=== PATIENT | female | born 1965 | race Caucasian/White ===

== ENCOUNTER 2016-10-23 06:25 | Day surgery (SDC) | payer OTHER ==
[2016-10-23] MEDS ORDERED: Lactated Ringers 1,000 ML IV SCH (06:30)
[2016-10-23 09:07] VITALS: BP 151/68; PULSE 98; O2SAT 100
--- NOTE | 2016-10-23 12:23 | OP ---
SURGERY DATE: 10/23/16 SURGERY TIME: 0750 PREOPERATIVE DIAGNOSIS: 1. ALTERNATING CONSTIPATION AND DIARRHEA. POSTOPERATIVE DIAGNOSIS: 1. GASTRITIS. 2. NORMAL COLON. PROCEDURE: 1. Esophagogastroduodenoscopy with biopsy. 2. Colonoscopy. SURGEON: Dr. Randall. ANESTHESIA: MAC, medications given by the Anesthesia Department. BRIEF HISTORY: The patient is a 51 y/o WF who presents now for complaints of alternating constipation and diarrhea. It has been going on for some time. She reports that she is also having some abdominal pain. The patient is felt to need to have endoscopic evaluation. She was appraised of the risks of the procedure including the risk of perforation, phlebitis, untoward reaction to medication, bleeding, and missed lesions. The patient verbalized her understanding and desired to have the procedure performed. DESCRIPTION OF PROCEDURE: The patient was given the medications by the Anesthesia Department. She had continuous pulse oximetry, ECG monitoring, intermittent BP monitoring, and end tidal CO2 monitoring during the examination. She was placed in the left lateral decubitus position. A bite block was placed and the flexible Olympus gastroscope was used to intubate the oropharynx. A view of the larynx was obtained and was normal. The scope was easily introduced in the esophagus which was normal throughout its length. The stomach was entered where normal gastric rugal folds were seen. The gastric [place] was suctioned dry. The stomach was reinsufflated and we saw areas of erythema without ulcerations or erosions. The pylorus was encountered and intubated and the duodenum was inspected and found to be normal. The scope was withdrawn towards the stomach. A retroflex view was obtained of the lesser curvature, fundus, and cardia regions of the stomach and these appeared to be normal. The scope was then redirected towards the gastric antrum. Biopsies were obtained to rule out the presence of Helicobacter pylori type organisms and to confirm the presence of gastritis. The scope was removed from the patient. Next, a digital rectal examination was performed and revealed normal anal sphincter tone and no masses. The flexible Olympus pediatric colonoscope was used to intubate the rectum. A view of the colon was developed sequentially to the cecum. Upon insertion and withdrawal, including a retroflex view in the rectum, no mucosal lesions were encountered. However, there were large amounts of stool present still in the colon that were liquid. We were able to reach the cecum. The scope was removed from the patient who tolerated the procedure well and was sent back to OP recovery in good condition. The prep again was noted to be fair to poor.
== END 2016-10-23 09:40 | disposition left against medical advice (07) ==
LOC: SDC 06:25
PROVIDERS: ATTEND Family Medicine
PROC: 0DB68ZX Excision of Stomach, Via Natural or Artificial Opening Endoscopic, Diagnostic (ICD-10-PCS; principal; 2016-10-23)
PROC: 0DJD8ZZ Inspection of Lower Intestinal Tract, Via Natural or Artificial Opening Endoscopic (ICD-10-PCS; 2016-10-23)
DX: K29.70 Gastritis, unspecified, without bleeding (principal); K59.00 Constipation, unspecified; R19.7 Diarrhea, unspecified
CPT/HCPCS: 36415; 88305

== ENCOUNTER 2016-12-14 13:30 | Observation (INO) | payer OTHER ==
--- NOTE | 2016-12-14 13:48 | ERPHSYRPT ---
- History of Present Illness Time Seen by Provider: 12/14/16 13:42 Historian: patient Exam Limitations: no limitations Timing/Duration: today Activities at Onset: none Quality: aching Location: central Severity of Pain-Max: moderate Severity of Pain-Current: moderate Modifying Factors: Improves With: nothing Associated Symptoms: nausea, vomiting Prior Chest Pain/Cardiac Workup: no prior chest pain Nitro Today/Relief: no nitro taken today Aspirin Treatment Today: no aspirin today Allergies/Adverse Reactions: gabapentin [From Neurontin] Allergy (Intermediate, Verified 12/14/16 13:43) Rash Penicillins Adverse Reaction (Intermediate, Verified 12/14/16 13:43) Nausea and Vomiting Home Medications: Metoprolol Tartrate 25 mg [Lopressor 25MG Tab] 25 mg PO TID 02/11/16 [ History] Omeprazole [Prilosec] 40 mg PO DAILY 02/11/16 [History] Prazosin HCl 1 mg PO HS 02/11/16 [History] Quetiapine Fumarate [Seroquel] 300 mg PO HS 02/11/16 [History] Venlafaxine HCl [Effexor Xr] 150 mg PO HS 02/11/16 [History] Albuterol 8 gm Mdi Hfa [Ventolin Hfa MDI] 18 gm IH Q4H 09/16/16 [History] Tiotropium [place] Inhaler [Spiriva 18 Mcg/Cap Inhaler] 1 ea IH DAILY 09/01 [History] Ondansetron HCl 4 mg PO Q4H PRN PRN 10/20/16 [History] Ranitidine HCl 150 mg PO BID 10/20/16 [History] Diazepam 5 mg [Valium 5 MG] 5 mg PO HS 12/14/16 [History] Hx Tetanus, Diphtheria Vaccination/Date Given: Yes Hx Influenza Vaccination/Date Given: No Hx Pneumococcal Vaccination/Date Given: No - Review of Systems Constitutional: No Fever, No Chills Eyes: No Symptoms Ears, Nose, & Throat: No Symptoms Respiratory: No Cough, No Dyspnea Cardiac: Chest Pain Abdominal/Gastrointestinal: Nausea, Vomiting Genitourinary Symptoms: No Dysuria Musculoskeletal: No Back Pain, No Neck Pain Skin: No Rash Neurological: No Dizziness, No Focal Weakness, No Sensory Changes Psychological: No Symptoms Endocrine: No Symptoms Hematologic/Lymphatic: No Symptoms Immunological/Allergic: No Symptoms All Other Systems: Reviewed and Negative - Past Medical History Pertinent Past Medical History: Yes Neurological History: No Pertinent History ENT History: No Pertinent History Cardiac History: Hypertension Respiratory History: Asthma Endocrine Medical History: No Pertinent History Musculoskeletal History: No Pertinent History GI Medical History: No Pertinent History History: No Pertinent History Psycho-Social History: Anxiety, Depression Female Reproductive Disorders: No Pertinent History - Past Surgical History Past Surgical History: Yes Neuro Surgical History: No Pertinent History Cardiac: No Pertinent History Respiratory: No Pertinent History Gastrointestinal: No Pertinent History Genitourinary: No Pertinent History Musculoskeletal: Orthopedic Surgery Female Surgical History: Hysterectomy, Other Other Surgical History: exploratory lap prior to hysterectomy, cervical/neck disc surgery twice - Social History Smoking Status: Current every day smoker How long have you smoked: 15yrs Exposure to second hand smoke: No Drug Use: none Patient Lives Alone: No - Female History Hx Now: No - Physical Exam General Appearance: moderate distress Eye Exam: PERRL/EOMI, eyes nml inspection Ears, Nose, Throat Exam: normal ENT inspection, moist mucous membranes Neck Exam: normal inspection, non-tender, supple, full range of motion Respiratory Exam: normal breath sounds, lungs clear, No respiratory distress Cardiovascular Exam: regular rate/rhythm, normal heart sounds Gastrointestinal/Abdomen Exam: tenderness Pelvic Exam: not done Rectal Exam: not done Back Exam: normal inspection, No CVA tenderness, No vertebral tenderness Extremity Exam: normal inspection, normal range of motion Neurologic Exam: alert, oriented x 3, cooperative, normal mood/affect, sensation nml, No motor deficits Skin Exam: normal color, warm, dry SpO2 Interpretation: normal - Course EKG Interpreted by Me: Sinus Rhythm, NORMAL AXIS, NORMAL INTERVALS, NORMAL QRS, NORMAL ST-T Ordered Tests: Medication Summary Discontinued Medications Generic Name Dose Route Start Last Admin Trade Name Freq PRN Reason Stop Dose Admin Acetaminophen/Hydrocodone Bitart 1 tab 12/14/16 18:27 12/15/16 04:34 [place] 10/325 Mg Tablet PO 12/19/16 18:26 1 tab Q4H PRN PRN Administration PAIN Al Hydrox/Mg Hydrox/Simethicone Confirm 12/14/16 14:20 Maalox Es 30 Ml Unit Dose Administered 12/14/16 14:21 Dose 30 ml .ROUTE .STK-MED ONE Albuterol Sulfate 2 puff 12/15/16 07:00 Proventil Common Canister IH 01/14/17 06:59 Q4HRT BARBARA Belladonna Alkaloids/Phenobarbital 60 ml 12/14/16 13:54 12/14/16 14:07 Gi Cocktail 60ml (Belladonn/Phenobarb/Lidoc* PO 12/14/16 13:55 60 ml STAT ONE Administration Belladonna Alkaloids/Phenobarbital Confirm 12/14/16 14:21 Donnatol Liquid Administered 12/14/16 14:22 Dose 3.24 mg .ROUTE .STK-MED ONE Diazepam 5 mg 12/14/16 22:00 12/14/16 22:48 Valium 5 Mg PO 01/13/17 21:59 5 mg HS BARBARA Administration Enoxaparin Sodium 40 mg 12/15/16 10:00 Enoxaparin Sodium SQ 01/14/17 09:59 DAILY BARBARA Famotidine 20 mg 12/14/16 22:00 12/14/16 22:47 Pepcid 20 Mg Vial IV 01/13/17 21:59 20 mg Q12HT BARBARA Administration Famotidine 20 mg 12/14/16 22:00 12/15/16 08:36 Pepcid 20 Mg PO 01/13/17 21:59 20 mg BID BARBARA Administration Sodium Chloride 1,000 mls @ 999 mls/hr 12/14/16 13:54 12/14/16 14:07 Sodium Chloride 0.9% 1000 Ml IV 12/14/16 14:54 999 mls/hr .Q1H1M STA Administration Sodium Chloride Confirm 12/14/16 13:58 Sodium Chloride 0.9% 1000 Ml Administered 12/14/16 13:59 Dose 1,000 mls @ ud .ROUTE .STK-MED ONE Sodium Chloride 1,000 mls @ 100 mls/hr 12/14/16 17:34 12/15/16 04:30 Sodium Chloride 0.9% 1000 Ml IV 01/13/17 17:33 100 mls/hr .Q10H BARBARA Administration Pantoprazole Sodium 80 mg/ 500 mls @ 50 mls/hr 12/14/16 19:45 12/15/16 07:06 Sodium Chloride IV 01/13/17 19:44 50 mls/hr .Q10H BARBARA Administration Sodium Chloride Confirm 12/14/16 20:15 Sodium Chloride 0.9% 500 Ml Administered 12/14/16 20:16 Dose 500 mls @ ud IV .STK-MED ONE Sodium Chloride Confirm 12/14/16 18:29 Sodium Chloride 0.9% 1000 Ml Administered 12/14/16 18:30 Dose 1,000 mls @ ud .ROUTE .STK-MED ONE Labetalol HCl 10 mg 12/14/16 13:58 12/14/16 14:08 Trandate 20 Mg/5 Ml Syringe IV 12/14/16 13:59 10 mg STAT ONE Administration Labetalol HCl Confirm 12/14/16 13:58 Trandate 20 Mg/5 Ml Syringe Administered 12/14/16 13:59 Dose 20 mg IV .STK-MED ONE Labetalol HCl 10 mg 12/14/16 15:03 12/14/16 15:07 Trandate 20 Mg/5 Ml Syringe IV 12/14/16 15:04 10 mg STAT ONE Administration Lidocaine HCl Confirm 12/14/16 14:20 Xylocaine Hcl Viscous * Administered 12/14/16 14:21 Dose 1 ml .ROUTE .STK-MED ONE Metoprolol Tartrate 5 mg 12/14/16 16:59 12/14/16 17:08 Lopressor 5 Mg/5 Ml Injection IV 12/14/16 17:00 5 mg STAT ONE Administration Metoprolol Tartrate Confirm 12/14/16 17:07 Lopressor 5 Mg/5 Ml Injection Administered 12/14/16 17:08 Dose 5 mg IV .STK-MED ONE Metoprolol Tartrate 5 mg 12/14/16 17:47 12/14/16 17:57 Lopressor 5 Mg/5 Ml Injection IV 12/14/16 17:48 5 mg STAT ONE Administration Metoprolol Tartrate 25 mg 12/14/16 22:00 12/15/16 08:36 Lopressor 25mg Tab PO 01/13/17 21:59 25 mg TID BARBARA Administration Nitroglycerin 0.4 mg 12/15/16 08:07 12/15/16 08:17 Nitrostat 0.4 Mg Tablet SL 01/14/17 08:06 0.4 mg Q5MIN PRN MR X 3 PRN Administration CHEST PAIN Ondansetron HCl 8 mg 12/14/16 15:25 12/14/16 15:36 Zofran 4 Mg/2 Ml Vial IV 12/14/16 15:26 8 mg STAT ONE Administration Ondansetron HCl Confirm 12/14/16 15:29 Zofran 4 Mg/2 Ml Vial Administered 12/14/16 15:30 Dose 8 mg .ROUTE .STK-MED ONE Ondansetron HCl 4 mg 12/14/16 17:34 12/14/16 20:09 Zofran 4 Mg/2 Ml Vial IV 01/13/17 17:33 4 mg Q6H PRN PRN Administration NAUSEA/VOMITING Pantoprazole Sodium 40 mg 12/14/16 13:54 12/14/16 14:11 Protonix 40 Mg Iv IV 12/14/16 13:55 40 mg STAT ONE Administration Pantoprazole Sodium Confirm 12/14/16 14:11 Protonix 40 Mg Iv Administered 12/14/16 14:12 Dose 40 mg IV .STK-MED ONE Pantoprazole Sodium 40 mg 12/15/16 10:00 Protonix 40 Mg Iv IV 01/14/17 09:59 Q24H10 BARBARA Pantoprazole Sodium Confirm 12/14/16 20:15 Protonix 40 Mg Iv Administered 12/14/16 20:16 Dose 80 mg IV .STK-MED ONE Promethazine HCl 25 mg 12/14/16 13:54 12/14/16 14:09 Phenergan 25 Mg Inj IV 12/14/16 13:55 25 mg STAT ONE Administration Promethazine HCl Confirm 12/14/16 13:58 Phenergan 25 Mg Inj Administered 12/14/16 13:59 Dose 25 mg .ROUTE .STK-MED ONE Promethazine HCl 25 mg 12/14/16 16:12 12/14/16 16:18 Phenergan 25 Mg Inj IV 12/14/16 16:13 25 mg STAT ONE Administration Promethazine HCl Confirm 12/14/16 16:17 Phenergan 25 Mg Inj Administered 12/14/16 16:18 Dose 25 mg .ROUTE .STK-MED ONE Promethazine HCl 25 mg 12/14/16 17:34 Phenergan 25 Mg Inj IM 01/13/17 17:33 Q6H PRN PRN NAUSEA/VOMITING Quetiapine Fumarate 300 mg 12/14/16 22:00 12/14/16 22:48 Seroquel 100 Mg PO 01/13/17 21:59 300 mg HS BARBARA Administration Tiotropium [place] 1 ea 12/15/16 10:00 Spiriva 18 Mcg/Cap Inhaler IH 01/14/17 09:59 DAILY BARBARA Venlafaxine HCl 150 mg 12/15/16 10:00 Effexor Xr 75 Mg PO 01/14/17 09:59 DAILY BARBARA Venlafaxine HCl 150 mg 12/14/16 22:00 12/14/16 22:47 Effexor Xr 75 Mg PO 01/13/17 21:59 150 mg HS BARBARA Administration Lab/Rad Data: Laboratory Result Diagrams 12/14/16 13:45 12/14/16 13:45 Laboratory Results 12/14/16 12/14/16 12/14/16 Range/Units 16:00 13:45 13:45 WBC 13.2 H (4.0-10.5) K/mm3 RBC 4.66 (4.1-5.4) M/mm3 Hgb 14.6 (12.0-16.0) gm/dl Hct 43.3 (35-47) % MCV 92.9 (78-100) fl MCH 31.3 (26-32) pg MCHC 33.7 (32-36) g/dl RDW 12.5 (11.5-14.0) % Plt Count 452 H (150-450) K/mm3 MPV 10.2 H (6-9.5) fl Gran % 87.9 H (36.0-66.0) % Lymphocytes % 10.1 L (24.0-44.0) % Monocytes % 1.8 (0.0-12.0) % Eosinophils % 0.0 (0.00-5.0) % Basophils % 0.2 (0.0-0.4) % Basophils # 0.03 (0-0.4) Sodium 138 (136-145) mEq/L Potassium 3.8 (3.5-5.1) mEq/L Chloride 98 (98-107) mEq/L Carbon Dioxide 23.6 (21-32) mEq/L Anion Gap 20.0 H (5-15) MEQ/L BUN 14 (9-20) mg/dL Creatinine 1.48 H (0.55-1.30) mg/dl Estimated GFR 40 ML/MIN Glucose 175 H (70-110) MG/DL Calcium 10.5 H (8.5-10.1) mg/dL Total Bilirubin 0.3 (0.2-1.0) mg/dL AST 29 (15-37) U/L ALT 44 (12-78) U/L Alkaline Phosphatase 114 (46-116) U/L Troponin I < 0.017 (0.000-0.056) ng/ml Serum Total Protein 9.7 H (6.4-8.2) gm/dL Albumin 4.7 (3.4-5.0) g/dL Lipase 56 L (73-393) U/L Emesis for Blood NEGATIVE (Negative) - Progress Progress: unchanged Will see patient in: hospital (observation) - Departure Time of Disposition: 06:18 Departure Disposition: Observation Clinical Impression: HTN (hypertension), Vomiting Condition: Stable Critical Care Time: No
[2016-12-14] MEDS ORDERED: Phenergan 25 MG INJ IV ONE ×2 (13:54→16:12)
[2016-12-14] MEDS ORDERED: PROTONIX 40 MG IV IV ONE ×3 (13:54→20:15)
[2016-12-14] MEDS ORDERED: Sodium Chloride 0.9% 1000 ML 1,000 ML IV STA (13:54)
[2016-12-14] MEDS ORDERED: GI COCKTAIL 60ML (Belladonn/Phenobarb/Lidoc PO ONE (13:54)
--- NOTE | 2016-12-14 13:54 | ERPHSYRPT ---
- History of Present Illness Time Seen by Provider: 12/14/16 13:48 Source: patient Exam Limitations: no limitations Patient Subjective Stated Complaint: PT REPORTS SEVERE CHEST PAIN-N/V BEGINNING QUALITY CONTROL HEAD-HEADACHE FOR A FEW DAYS-NUMBNESS ET TINLGING IN LEFT HAND-STATES THAT SHE HAS NOT HAD HER HOME MEDS DUE TO INSURANCE ISSUES Triage Nursing Assessment: PT FLUSHED WARM ET [id number] QUESTIONS CORRECTLY-RESP NONLABORED-WHEEZES NOTED-PUPILS RESPONSIVE Physician History: The patient is a 51-year-old female who had severe epigastric pain and GI reflux last night about 3 AM. The pain has continued. Travels through to her back. She also has vomiting and diarrhea. She has been out of all of her medications for 4 days. These include ondansetron, omeprazole, metoprolol, and ranitidine. She states this pain feels more like severe heartburn. Her past medical history is significant for GERD, hypertension, COPD, and depression. She smokes. Timing/Duration: yesterday, hour(s) (11), constant, sudden Severity: severe Modifying Factors: Improves With: nothing Associated Symptoms: nausea, vomiting, abdominal pain, heartburn, chest pain Allergies/Adverse Reactions: gabapentin [From Neurontin] Allergy (Intermediate, Verified 12/14/16 13:43) Rash Penicillins Adverse Reaction (Intermediate, Verified 12/14/16 13:43) Nausea and Vomiting Home Medications: Metoprolol Tartrate 25 mg [Lopressor 25MG Tab] 25 mg PO TID 02/11/16 [ History] Omeprazole [Prilosec] 40 mg PO DAILY 02/11/16 [History] Prazosin HCl 1 mg PO DAILY 02/11/16 [History] Quetiapine Fumarate [Seroquel] 300 mg PO HS 02/11/16 [History] Venlafaxine HCl [Effexor Xr] 150 mg PO DAILY 02/11/16 [History] Albuterol 8 gm Mdi Hfa [Ventolin Hfa MDI] 18 gm IH Q4H 09/16/16 [History] Tiotropium [place] Inhaler [Spiriva 18 Mcg/Cap Inhaler] 1 ea IH DAILY 09/01 [History] Diclofenac Sodium Gel [Voltaren GEL] 1 each TOP QID 10/20/16 [History] Ondansetron HCl 4 mg PO Q4H PRN PRN 10/20/16 [History] Ranitidine HCl 150 mg PO BID 10/20/16 [History] Hx Tetanus, Diphtheria Vaccination/Date Given: Yes Hx Influenza Vaccination/Date Given: No Hx Pneumococcal Vaccination/Date Given: No Immunizations Up to Date: Yes - Review of Systems Constitutional: No Fever, No Chills Eyes: No Symptoms Ears, Nose, & Throat: No Symptoms Respiratory: No Cough, No Dyspnea Cardiac: Chest Pain Abdominal/Gastrointestinal: Abdominal Pain, Nausea, Vomiting, Diarrhea Genitourinary Symptoms: No Dysuria Musculoskeletal: No Back Pain, No Neck Pain Skin: No Rash Neurological: No Dizziness, No Focal Weakness, No Sensory Changes Psychological: No Symptoms Endocrine: No Symptoms Hematologic/Lymphatic: No Symptoms Immunological/Allergic: No Symptoms All Other Systems: Reviewed and Negative - Past Medical History Pertinent Past Medical History: Yes Neurological History: No Pertinent History ENT History: No Pertinent History Cardiac History: Hypertension Respiratory History: Asthma Endocrine Medical History: No Pertinent History Musculoskeletal History: No Pertinent History GI Medical History: No Pertinent History History: No Pertinent History Psycho-Social History: Anxiety, Depression Female Reproductive Disorders: No Pertinent History - Past Surgical History Past Surgical History: Yes Neuro Surgical History: No Pertinent History Cardiac: No Pertinent History Respiratory: No Pertinent History Gastrointestinal: No Pertinent History Genitourinary: No Pertinent History Musculoskeletal: Orthopedic Surgery Female Surgical History: Hysterectomy, Other Other Surgical History: exploratory lap prior to hysterectomy, cervical/neck disc surgery twice - Social History Smoking Status: Current every day smoker How long have you smoked: 15yrs Exposure to second hand smoke: No Drug Use: none Patient Lives Alone: No - Female History Hx Now: No - Nursing Vital Signs Nursing Vital Signs: Initial Vital Signs Temperature 98.0 F Temperature Source Oral Pulse Rate [] 76 Pulse Rate 91 Respiratory Rate 20 Blood Pressure [] 215/127 Pain Intensity 6 - Physical Exam General Appearance: moderate distress Eye Exam: PERRL/EOMI, eyes nml inspection Ears, Nose, Throat Exam: normal ENT inspection, TMs normal, pharynx normal, moist mucous membranes Neck Exam: normal inspection, non-tender, supple, full range of motion Respiratory Exam: normal breath sounds, lungs clear, No respiratory distress Cardiovascular Exam: regular rate/rhythm, normal heart sounds, normal peripheral pulses Gastrointestinal/Abdomen Exam: tenderness (epigastric) Pelvic Exam: not done Rectal Exam: not done Back Exam: normal inspection, normal range of motion, No CVA tenderness, No vertebral tenderness Extremity Exam: normal inspection, normal range of motion, pelvis stable Neurologic Exam: alert, oriented x 3, cooperative, normal mood/affect, nml cerebellar function, nml station & gait, sensation nml, No motor deficits Skin Exam: normal color, warm, dry, No rash Lymphatic Exam: No adenopathy SpO2 Interpretation: normal SpO2: 99 Oxygen Delivery: Room Air - Course EKG Interpreted by Me: RATE, Sinus Rhythm, NORMAL AXIS, NORMAL INTERVALS, NORMAL QRS, NORMAL ST-T - Radiology Exams Chest X-ray Interpretation: Teleradiologist Report, Negative (per Dr Jaimes) Abdomen X-ray Interpretation: Teleradiologist Report, Negative (per Dr Jaimes.) - CT Exams Head CT Interpretation: Negative, Tele-radiologist Report (stable normal head CT per Dr Jaimes.) Ordered Tests: Active Orders 24 hr Category Date Time Status EKG-ER Only STAT Care 12/14/16 13:54 Active IV Insertion STAT Care 12/14/16 13:54 Active CHEST 2 VIEWS (PA AND LAT) Stat Exams 12/14/16 13:54 Completed HEAD WITHOUT CONTRAST [CT] Stat Exams 12/14/16 16:10 Completed KUB Stat Exams 12/14/16 13:55 Completed CBC W DIFF Stat Lab 12/14/16 13:45 Completed CMP Stat Lab 12/14/16 13:45 Completed LIPASE Stat Lab 12/14/16 13:45 Completed OCCULT BLOOD, EMESIS Stat Lab 12/14/16 16:00 Completed TROPONIN Stat Lab 12/14/16 13:45 Completed UA Stat Lab 12/14/16 13:54 Ordered Medication Summary Discontinued Medications Generic Name Dose Route Start Last Admin Trade Name Freq PRN Reason Stop Dose Admin Al Hydrox/Mg Hydrox/Simethicone Confirm 12/14/16 14:20 Maalox Es 30 Ml Unit Dose Administered 12/14/16 14:21 Dose 30 ml .ROUTE .STK-MED ONE Belladonna Alkaloids/Phenobarbital 60 ml 12/14/16 13:54 12/14/16 14:07 Gi Cocktail 60ml (Belladonn/Phenobarb/Lidoc* PO 12/14/16 13:55 60 ml STAT ONE Administration Belladonna Alkaloids/Phenobarbital Confirm 12/14/16 14:21 Donnatol Liquid Administered 12/14/16 14:22 Dose 3.24 mg .ROUTE .STK-MED ONE Sodium Chloride 1,000 mls @ 999 mls/hr 12/14/16 13:54 12/14/16 14:07 Sodium Chloride 0.9% 1000 Ml IV 12/14/16 14:54 999 mls/hr .Q1H1M STA Administration Sodium Chloride Confirm 12/14/16 13:58 Sodium Chloride 0.9% 1000 Ml Administered 12/14/16 13:59 Dose 1,000 mls @ ud .ROUTE .STK-MED ONE Labetalol HCl 10 mg 12/14/16 13:58 12/14/16 14:08 Trandate 20 Mg/5 Ml Syringe IV 12/14/16 13:59 10 mg STAT ONE Administration Labetalol HCl Confirm 12/14/16 13:58 Trandate 20 Mg/5 Ml Syringe Administered 12/14/16 13:59 Dose 20 mg IV .STK-MED ONE Labetalol HCl 10 mg 12/14/16 15:03 12/14/16 15:07 Trandate 20 Mg/5 Ml Syringe IV 12/14/16 15:04 10 mg STAT ONE Administration Lidocaine HCl Confirm 12/14/16 14:20 Xylocaine Hcl Viscous * Administered 12/14/16 14:21 Dose 1 ml .ROUTE .STK-MED ONE Metoprolol Tartrate 5 mg 12/14/16 16:59 Lopressor 5 Mg/5 Ml Injection IV 12/14/16 17:00 STAT ONE Ondansetron HCl 8 mg 12/14/16 15:25 12/14/16 15:36 Zofran 4 Mg/2 Ml Vial IV 12/14/16 15:26 8 mg STAT ONE Administration Ondansetron HCl Confirm 12/14/16 15:29 Zofran 4 Mg/2 Ml Vial Administered 12/14/16 15:30 Dose 8 mg .ROUTE .STK-MED ONE Pantoprazole Sodium 40 mg 12/14/16 13:54 12/14/16 14:11 Protonix 40 Mg Iv IV 12/14/16 13:55 40 mg STAT ONE Administration Pantoprazole Sodium Confirm 12/14/16 14:11 Protonix 40 Mg Iv Administered 12/14/16 14:12 Dose 40 mg IV .STK-MED ONE Promethazine HCl 25 mg 12/14/16 13:54 12/14/16 14:09 Phenergan 25 Mg Inj IV 12/14/16 13:55 25 mg STAT ONE Administration Promethazine HCl Confirm 12/14/16 13:58 Phenergan 25 Mg Inj Administered 12/14/16 13:59 Dose 25 mg .ROUTE .STK-MED ONE Promethazine HCl 25 mg 12/14/16 16:12 12/14/16 16:18 Phenergan 25 Mg Inj IV 12/14/16 16:13 25 mg STAT ONE Administration Promethazine HCl Confirm 12/14/16 16:17 Phenergan 25 Mg Inj Administered 12/14/16 16:18 Dose 25 mg .ROUTE .STK-MED ONE Lab/Rad Data: Laboratory Result Diagrams 12/14/16 13:45 12/14/16 13:45 Laboratory Results 12/14/16 12/14/16 12/14/16 Range/Units 16:00 13:45 13:45 WBC 13.2 H (4.0-10.5) K/mm3 RBC 4.66 (4.1-5.4) M/mm3 Hgb 14.6 (12.0-16.0) gm/dl Hct 43.3 (35-47) % MCV 92.9 (78-100) fl MCH 31.3 (26-32) pg MCHC 33.7 (32-36) g/dl RDW 12.5 (11.5-14.0) % Plt Count 452 H (150-450) K/mm3 MPV 10.2 H (6-9.5) fl Gran % 87.9 H (36.0-66.0) % Lymphocytes % 10.1 L (24.0-44.0) % Monocytes % 1.8 (0.0-12.0) % Eosinophils % 0.0 (0.00-5.0) % Basophils % 0.2 (0.0-0.4) % Basophils # 0.03 (0-0.4) Sodium 138 (136-145) mEq/L Potassium 3.8 (3.5-5.1) mEq/L Chloride 98 (98-107) mEq/L Carbon Dioxide 23.6 (21-32) mEq/L Anion Gap 20.0 H (5-15) MEQ/L BUN 14 (9-20) mg/dL Creatinine 1.48 H (0.55-1.30) mg/dl Estimated GFR 40 ML/MIN Glucose 175 H (70-110) MG/DL Calcium 10.5 H (8.5-10.1) mg/dL Total Bilirubin 0.3 (0.2-1.0) mg/dL AST 29 (15-37) U/L ALT 44 (12-78) U/L Alkaline Phosphatase 114 (46-116) U/L Troponin I < 0.017 (0.000-0.056) ng/ml Serum Total Protein 9.7 H (6.4-8.2) gm/dL Albumin 4.7 (3.4-5.0) g/dL Lipase 56 L (73-393) U/L Emesis for Blood NEGATIVE (Negative) - Progress Progress: improved Discussed with : Prakash Will see patient in: hospital (observation) Counseled pt/family regarding: lab results, diagnosis, rad results - Departure Time of Disposition: 17:09 Departure Disposition: Observation (tele per Dr Randall) Clinical Impression: HTN (hypertension), Vomiting Condition: Stable Critical Care Time: No
[2016-12-14] MEDS ORDERED: Sodium Chloride 0.9% 1000 ML 1,000 ML ONE ×2 (13:58→18:29)
[2016-12-14] MEDS ORDERED: Phenergan 25 MG INJ ONE ×2 (13:58→16:17)
[2016-12-14] MEDS ORDERED: TRANDATE 20 MG/5 ML SYRINGE IV ONE ×3 (13:58→15:03)
[2016-12-14 14:04] LABS: BASOPHIL % 0.2 % (0.0-0.4); Granulocytes % 87.9 % (36.0-66.0); Lymphocytes % 10.1 % (24.0-44.0); Mean Cell Volume 92.9 fl (78-100); Mean Corpuscular Hemoglobin 31.3 pg (26-32); Mean Platelet Volume 10.2 fl (6-9.5); Monocytes % 1.8 % (0.0-12.0); Platelet Count 452 K/mm3 (150-450); Red Blood Count 4.66 M/mm3 (4.1-5.4); Red Cell Distribution Width 12.5 % (11.5-14.0); White Blood Count 13.2 K/mm3 (4.0-10.5)
[2016-12-14] MEDS ORDERED: MAALOX ES 30 ML UNIT DOSE ONE (14:20)
[2016-12-14] MEDS ORDERED: XYLOCAINE HCl Viscous ONE (14:20)
[2016-12-14] MEDS ORDERED: Donnatol Liquid ONE (14:21)
[2016-12-14 14:30] LABS: ALBUMIN 4.7 g/dL (3.4-5.0); ALKALINE PHOSPHATASE 114 U/L (46-116); BILIRUBIN,TOTAL 0.3 mg/dL (0.2-1.0); BLOOD UREA NITROGEN 14 mg/dL (9-20); CHLORIDE 98 mEq/L (98-107); Carbon Dioxide 23.6 mEq/L (21-32); Glucose 175 MG/DL (70-110); LIPASE 56 U/L (73-393); Potassium 3.8 mEq/L (3.5-5.1); SGOT/AST 29 U/L (15-37); SGPT/ALT 44 U/L (12-78); SODIUM 138 mEq/L (136-145); Total Protein 9.7 gm/dL (6.4-8.2)
[2016-12-14 14:31] LABS: TROPONIN < 0.017 ng/ml (0.000-0.056)
--- NOTE | 2016-12-14 14:42 | XRAY ---
Indication: Abdominal pain and vomiting. Comparison: None KUB nonacute and nonobstructed with minimal scattered vascular calcifications. Solid organs and osseous structures unremarkable. Impression: Negative KUB.
--- NOTE | 2016-12-14 14:44 | XRAY ---
Indication: Chest pain. Comparison: February 11, 2016. PA/lateral chest again demonstrates normal heart, lungs, and bony thorax.
[2016-12-14] MEDS ORDERED: Zofran 4 MG/2 ML VIAL IV ONE (15:25)
[2016-12-14] MEDS ORDERED: Zofran 4 MG/2 ML VIAL ONE (15:29)
--- NOTE | 2016-12-14 16:50 | XRAY ---
Indication: Headache. Multiple contiguous axial images obtained through the head without contrast. Comparison: June 16, 2015. Again normal appearing brain parenchyma, ventricles, and bony calvarium. Visualized paranasal sinuses and mastoid air cells are pneumatized and clear. Impression: Stable normal CT head without contrast exam. CTDI 67.22
[2016-12-14] MEDS ORDERED: LOPRESSOR 5 MG/5 ML INJECTION IV ONE ×3 (16:59→17:47)
[2016-12-14] MEDS ORDERED: Zofran 4 MG/2 ML VIAL IV PRN (17:34)
[2016-12-14] MEDS ORDERED: Phenergan 25 MG INJ IM PRN (17:34)
[2016-12-14] MEDS: Norco 10/325 MG Tablet PO PRN (20:09)
[2016-12-14] MEDS ORDERED: Sodium Chloride 0.9% 500 ML 500 ML IV ONE (20:15)
[2016-12-14] MEDS: PROTONIX 40 MG IV*** 80 MG in Sodium Chloride 0.9% 500 ML 500 ML IV SCH (20:30)
[2016-12-14] MEDS: Sodium Chloride 0.9% 1000 ML 1,000 ML IV SCH (20:36)
[2016-12-14] MEDS ORDERED: Seroquel 100 MG PO SCH (22:00)
[2016-12-14] MEDS ORDERED: Effexor XR 75 MG PO SCH (22:00)
[2016-12-14] MEDS ORDERED: Valium 5 MG PO SCH (22:00)
[2016-12-14] MEDS ORDERED: Pepcid 20 MG VIAL IV SCH (22:00)
[2016-12-14] MEDS: Lopressor 25MG Tab PO SCH (22:48)
[2016-12-14] MEDS: Pepcid 20 MG PO SCH (22:52)
[2016-12-15] MEDS: Sodium Chloride 0.9% 1000 ML 1,000 ML IV SCH (04:30)
[2016-12-15] MEDS: Norco 10/325 MG Tablet PO PRN (04:34)
[2016-12-15 06:16] LABS: ANION GAP 15.9 MEQ/L (5-15); Carbon Dioxide 25.8 mEq/L (21-32); Potassium 3.7 mEq/L (3.5-5.1)
[2016-12-15 06:18] LABS: BASOPHIL % 0.1 % (0.0-0.4); Eosinophil % 0.2 % (0.00-5.0); Granulocytes % 63.8 % (36.0-66.0); Lymphocytes % 27.5 % (24.0-44.0); Mean Cell Volume 93.5 fl (78-100); Mean Corpuscular Hemoglobin 30.7 pg (26-32); Mean Platelet Volume 10.2 fl (6-9.5); Monocytes % 8.4 % (0.0-12.0); Platelet Count 345 K/mm3 (150-450); Red Blood Count 4.33 M/mm3 (4.1-5.4); Red Cell Distribution Width 12.5 % (11.5-14.0); White Blood Count 13.4 K/mm3 (4.0-10.5)
[2016-12-15] MEDS ORDERED: Ventolin Hfa MDI IH SCH (06:45)
[2016-12-15] MEDS ORDERED: PROVENTIL COMMON CANISTER IH SCH (07:00)
[2016-12-15] MEDS: PROTONIX 40 MG IV*** 80 MG in Sodium Chloride 0.9% 500 ML 500 ML IV SCH (07:06)
[2016-12-15] MEDS ORDERED: MEDICATION INTERVENTION MC SCH (08:00)
[2016-12-15] MEDS ORDERED: Nitrostat 0.4 MG Tablet SL PRN (08:07)
--- NOTE | 2016-12-15 08:12 | HP ---
CHIEF COMPLAINT: Vomiting. HISTORY OF PRESENT ILLNESS: The patient is a 51 year-old white female who presented to the hospital emergency room after several episodes of vomiting. The patient reports that her friend said she turned pale and went out on her a couple of times prior to her arrival in the emergency room. In the emergency room the concern was for the patient's vomiting which is persistent despite Zofran and Phenergan. The emergency room doctor did not mention any chest pain issues. They did however give her a GI cocktail which the patient reported she was having a lot of heartburn which was unresolved with the GI cocktail. The patient reports remote history of having heart cath which was apparently normal done eight years ago. Although she reports a strong family history of heart problems. The patient also reports that she has been out of her home medications for the last month as she has been having trouble with her insurance and she has been taking no medications. HOME MEDICATIONS: Her home medications otherwise normally included metoprolol 25 mg t.i.d., omeprazole 40 mg a day, Prazosin 1 mg daily, Seroquel 300 mg at night, Effexor 150 mg daily, PRN Albuterol and Spiriva, Voltaren gel, Zofran 4 mg every four hours PRN and Zantac 150 mg b.i.d. ALLERGIES: NEURONTIN, PENICILLIN. PHYSICAL EXAMINATION: Revealed a well nourished, well developed 51 year-old white female currently in no distress and currently pain free. The patient's most recent vital signs show her temperature to be 98.1F, pulse 67, respiratory rate 18, blood pressure 145/70. HEENT: Normocephalic, atraumatic. Pupils equal round reactive to light. Extraocular movements intact. Oropharynx is pink and moist. NECK: Supple without lymphadenopathy, thyromegaly or JVD. CHEST: Clear to auscultation with good air movement bilaterally. HEART: Regular rate and rhythm without murmurs, rubs or gallops heard. ABDOMEN: Soft, nontender, nondistended without hepatosplenomegaly or masses. EXTREMITIES: Without clubbing, cyanosis or edema. NEUROLOGIC: Alert and oriented x3. No focal deficits were noted. LAB DATA AND TESTS: Showed normal EKG in normal sinus rhythm. Her initial troponins were less than 0.017. The patient's metabolic panel showed a nonfasting glucose 175, BUN 14, creatinine 1.48. Electrolytes were normal. Liver enzymes were normal. The patient's CBC showed a white blood cell count of 13,200, hemoglobin 14.6, PLT cou8nt 452,000. ASSESSMENT: Since the patient's hospital admission, she had complained of some chest pain. She was quite hypertensive. She received IV metoprolol. We did see an elevation of her troponins to 0.064 yesterday evening but by that time she was comfortable and sleeping. The patient's troponin semaj to 0.254 this morning and she is currently pain free but with the evidence of the chest discomfort and elevated troponins the patient was felt to need to be transferred to another facility for cardiology evaluation.
[2016-12-15 08:18] VITALS: PULSE 62
[2016-12-15 08:35] VITALS: BP 145/88; O2SAT 97
[2016-12-15] MEDS: Lopressor 25MG Tab PO SCH (08:36)
[2016-12-15] MEDS: Pepcid 20 MG PO SCH (08:36)
[2016-12-15] MEDS ORDERED: Effexor XR 75 MG PO SCH (10:00)
[2016-12-15] MEDS ORDERED: ENOXAPARIN SODIUM SQ SCH (10:00)
[2016-12-15] MEDS ORDERED: PROTONIX 40 MG IV IV SCH (10:00)
[2016-12-15] MEDS ORDERED: Spiriva 18 Mcg/Cap Inhaler IH SCH (10:00)
[2016-12-15] MEDS ORDERED: PRAZOSIN HCL 1 MG PO SCH (22:00)
== END 2016-12-15 09:00 | disposition home or self-care (01) ==
LOC: ED 13:30 → MED SURG 17:25
PROVIDERS: ADMIT Family Medicine; ATTEND Family Medicine
DX: R07.9 Chest pain, unspecified (principal); I10 Essential (primary) hypertension; K21.9 Gastro-esophageal reflux disease without esophagitis; J44.9 Chronic obstructive pulmonary disease, unspecified; F32.9 Major depressive disorder, single episode, unspecified; Z79.899 Other long term (current) drug therapy; Z72.0 Tobacco use
CPT/HCPCS: 36000; 36415; 70450; 71020; 74000; 80048; 80053; 82271; 83690; 84484; 85025; 93005; 93268; 96360; 96361; 96374; 96375; 96376; 99285; G0378; J2405; J2550; A9270-GY

== ENCOUNTER 2017-01-10 05:59 | Emergency (ER) | payer SELFPAY ==
[2017-01-10] MEDS ORDERED: BABY ASPIRIN 81 MG CHEW PO ONE (06:16)
[2017-01-10] MEDS ORDERED: Sodium Chloride 0.9% 1000 ML 1,000 ML IV STA (06:16)
[2017-01-10] MEDS ORDERED: Nitrostat 0.4 MG (ED) SL ONE ×2 (06:18→06:22)
[2017-01-10] MEDS ORDERED: BABY ASPIRIN 81 MG CHEW ONE (06:22)
[2017-01-10] MEDS ORDERED: Sodium Chloride 0.9% 1000 ML 1,000 ML ONE (06:22)
[2017-01-10] MEDS ORDERED: Hydromorphone 1 mg/ml Ampule IV ONE ×3 (06:24→07:40)
[2017-01-10] MEDS ORDERED: Phenergan 25 MG INJ IV ONE (06:24)
--- NOTE | 2017-01-10 06:24 | ERPHSYRPT ---
- History of Present Illness Time Seen by Provider: 01/10/17 06:15 Historian: patient Exam Limitations: no limitations Physician History: ABOUT 2.25 HOURS AGO PT STARTED WITH ANTERIOR CHEST PAIN RADIATING TO THE BACK WITH VOMITING X5, SHORTNESS OF AIR AND DIAPHORESIS. PT ALSO C/O A COUGH FOR YEARS. EARLIER THIS MONTH PT WENT TO [facility] AND SAW DR George JOHNSON( [employer] COORDINATOR) WHO PLANS TO PLACE STENTS IN THE FUTURE. Aspirin Treatment Today: 81 mg x 4, provided by EMS Allergies/Adverse Reactions: gabapentin [From Neurontin] Allergy (Intermediate, Verified 01/10/17 06:42) Rash Penicillins Adverse Reaction (Intermediate, Verified 01/10/17 06:42) Nausea and Vomiting Home Medications: Metoprolol Tartrate 25 mg [Lopressor 25MG Tab] 25 mg PO TID 02/11/16 [ History] Omeprazole [Prilosec] 40 mg PO DAILY 02/11/16 [History] Prazosin HCl 1 mg PO HS 02/11/16 [History] Quetiapine Fumarate [Seroquel] 300 mg PO HS 02/11/16 [History] Venlafaxine HCl [Effexor Xr] 150 mg PO HS 02/11/16 [History] Albuterol 8 gm Mdi Hfa [Ventolin Hfa MDI] 18 gm IH Q4H 09/16/16 [History] Tiotropium [place] Inhaler [Spiriva 18 Mcg/Cap Inhaler] 1 ea IH DAILY 09/01 [History] Ondansetron HCl 4 mg PO Q4H PRN PRN 10/20/16 [History] Ranitidine HCl 150 mg PO BID 10/20/16 [History] Diazepam 5 mg [Valium 5 MG] 5 mg PO HS 12/14/16 [History] Hx Tetanus, Diphtheria Vaccination/Date Given: Yes Hx Influenza Vaccination/Date Given: No Hx Pneumococcal Vaccination/Date Given: No - Review of Systems Respiratory: Cough, Dyspnea Cardiac: Chest Pain Abdominal/Gastrointestinal: Vomiting Endocrine: Excessive Sweating All Other Systems: Reviewed and Negative - Past Medical History Pertinent Past Medical History: Yes Neurological History: No Pertinent History ENT History: No Pertinent History Cardiac History: Hypertension Respiratory History: Asthma Endocrine Medical History: No Pertinent History Musculoskeletal History: No Pertinent History GI Medical History: No Pertinent History History: No Pertinent History Psycho-Social History: Anxiety, Depression Female Reproductive Disorders: No Pertinent History - Past Surgical History Past Surgical History: Yes Neuro Surgical History: No Pertinent History Cardiac: No Pertinent History Respiratory: No Pertinent History Gastrointestinal: No Pertinent History Genitourinary: No Pertinent History Musculoskeletal: Orthopedic Surgery Female Surgical History: Hysterectomy, Other Other Surgical History: exploratory lap prior to hysterectomy, cervical/neck disc surgery twice - Social History Smoking Status: Current every day smoker How long have you smoked: 15yrs Exposure to second hand smoke: No Drug Use: none Patient Lives Alone: No - Female History Hx Now: No - Nursing Vital Signs Nursing Vital Signs: Initial Vital Signs Temperature 97 F Temperature Source Oral Pulse Rate [] 68 Pulse Rate 78 Respiratory Rate 20 Blood Pressure [] 192/94 Pain Intensity 10 - Physical Exam General Appearance: alert Eye Exam: PERRL/EOMI Ears, Nose, Throat Exam: TMs normal, pharynx normal, moist mucous membranes Neck Exam: normal inspection Respiratory Exam: lungs clear Cardiovascular Exam: normal heart sounds Gastrointestinal/Abdomen Exam: soft, normal bowel sounds Back Exam: normal range of motion Extremity Exam: normal inspection, No pedal edema Neurologic Exam: alert, cooperative Skin Exam: warm, dry - Course Nursing assessment & vital signs reviewed: Yes EKG Interpreted by Me: RATE ([id number]), Sinus Juan, NORMAL AXIS, NORMAL INTERVALS - Radiology Exams Chest X-ray Interpretation: Interpreted by me, No Pneumonia Ordered Tests: Active Orders 24 hr Category Date Time Status Manager Quality Systems STAT Care 01/10/17 06:16 Active EKG-ER Only STAT Care 01/10/17 06:16 Completed IV Insertion STAT Care 01/10/17 06:16 Active Oxygen-ED Only NASAL CANNULA 2 lpm Care 01/10/17 06:16 Active CHEST 1 VIEW (PORTABLE) Stat Exams 01/10/17 06:17 Taken AMYLASE Stat Lab 01/10/17 06:28 Completed CBC W DIFF Stat Lab 01/10/17 06:28 Completed CMP Stat Lab 01/10/17 06:28 Completed LIPASE Stat Lab 01/10/17 06:28 Completed MAGNESIUM Stat Lab 01/10/17 06:28 Completed Manual Differential NC Stat Lab 01/10/17 06:28 Completed NT PRO BNP Stat Lab 01/10/17 06:28 Completed PROTIME WITH INR Stat Lab 01/10/17 06:28 Completed PTT Stat Lab 01/10/17 06:28 Completed TROPONIN Stat Lab 01/10/17 07:30 Ordered UA W/ MICROSCOPIC Stat Lab 01/10/17 07:03 Completed Urine Triage Profile Stat Lab 01/10/17 07:03 Completed Medication Summary Discontinued Medications Generic Name Dose Route Start Last Admin Trade Name Osmanyq PRN Reason Stop Dose Admin Aspirin 324 mg 01/10/17 06:16 01/10/17 06:28 Baby Aspirin 81 Mg Chew PO 01/10/17 06:17 324 mg STAT ONE Administration Aspirin Confirm 01/10/17 06:22 Baby Aspirin 81 Mg Chew Administered 01/10/17 06:23 Dose 324 mg .ROUTE .STK-MED ONE Hydromorphone HCl 1 mg 01/10/17 06:24 01/10/17 06:37 Hydromorphone 1 Mg/Ml Ampule IV 01/10/17 06:25 1 mg STAT ONE Administration Hydromorphone HCl Confirm 01/10/17 06:30 Hydromorphone 1 Mg/Ml Ampule Administered 01/10/17 06:31 Dose 1 mg .ROUTE .STK-MED ONE Hydromorphone HCl 1 mg 01/10/17 07:31 Hydromorphone 1 Mg/Ml Ampule IV 01/10/17 07:32 STAT ONE Sodium Chloride 1,000 mls @ 999 mls/hr 01/10/17 06:16 01/10/17 06:27 Sodium Chloride 0.9% 1000 Ml IV 01/10/17 07:16 999 mls/hr .Q1H1M STA Administration Sodium Chloride Confirm 01/10/17 06:22 Sodium Chloride 0.9% 1000 Ml Administered 01/10/17 06:23 Dose 1,000 mls @ ud .ROUTE .STK-MED ONE Labetalol HCl 10 mg 01/10/17 06:54 01/10/17 07:09 Trandate 20 Mg/5 Ml Syringe IV 01/10/17 06:55 10 mg STAT ONE Administration Labetalol HCl Confirm 01/10/17 07:06 Trandate 100 Mg/20 Ml Mdv For Drip Administered 01/10/17 07:07 Dose 100 mg IV .STK-MED ONE Labetalol HCl 20 mg 01/10/17 07:31 Trandate 20 Mg/5 Ml Syringe IV 01/10/17 07:32 STAT ONE Nitroglycerin 0.4 mg 01/10/17 06:18 01/10/17 06:28 Nitrostat 0.4 Mg (Ed) SL 01/10/17 06:19 0.4 mg STAT ONE Administration Nitroglycerin Confirm 01/10/17 06:22 Nitrostat 0.4 Mg (Ed) Administered 01/10/17 06:23 Dose 0.4 mg SL .STK-MED ONE Ondansetron HCl 4 mg 01/10/17 07:31 Zofran 4 Mg/2 Ml Vial IV 01/10/17 07:32 STAT ONE Promethazine HCl 12.5 mg 01/10/17 06:24 01/10/17 06:36 Phenergan 25 Mg Inj IV 01/10/17 06:25 12.5 mg STAT ONE Administration Promethazine HCl Confirm 01/10/17 06:30 Phenergan 25 Mg Inj Administered 01/10/17 06:31 Dose 25 mg .ROUTE .STK-MED ONE Lab/Rad Data: Laboratory Result Diagrams 01/10/17 06:28 01/10/17 06:28 Laboratory Results 01/10/17 01/10/17 01/10/17 Range/Units 07:03 07:03 06:28 WBC (4.0-10.5) K/mm3 RBC (4.1-5.4) M/mm3 Hgb (12.0-16.0) gm/dl Hct (35-47) % MCV (78-100) fl MCH (26-32) pg MCHC (32-36) g/dl RDW (11.5-14.0) % Plt Count (150-450) K/mm3 MPV (6-9.5) fl Segmented Neutrophils (36.0-66.0) % Lymphocytes (Manual) (24-44) % Monocytes (Manual) (0.0-12.0) % Differential Comment Platelet Estimate (NORMAL) Poikilocytosis Anisocytosis Rouleaux INR 1.09 (0.8-3.0) APTT 37.4 H (25.3-37.0) SECONDS Sodium (136-145) mEq/L Potassium (3.5-5.1) mEq/L Chloride (98-107) mEq/L Carbon Dioxide (21-32) mEq/L Anion Gap (5-15) MEQ/L BUN (9-20) mg/dL Creatinine (0.55-1.30) mg/dl Estimated GFR ML/MIN Glucose (70-110) MG/DL Calcium (8.5-10.1) mg/dL Magnesium (1.8-2.4) mg/dL Total Bilirubin (0.2-1.0) mg/dL AST (15-37) U/L ALT (12-78) U/L Alkaline Phosphatase (46-116) U/L NT-Pro-B Natriuret Pep (0-125) pg/ml Serum Total Protein (6.4-8.2) gm/dL Albumin (3.4-5.0) g/dL Amylase (25-115) U/L Lipase (73-393) U/L Ur Collection Type CLEAN CATCH Urine Color YELLOW (YELLOW) Urine Appearance CLEAR (CLEAR) Urine pH 6.0 (5-6) Ur Specific [place] 1.020 (1.005-1.025) Urine Protein TRACE (Negative) Urine Glucose (UA) NEGATIVE (NEGATIVE) mg/dL Urine Ketones NEGATIVE (NEGATIVE) Urine Nitrite NEGATIVE (NEGATIVE) Urine Bilirubin NEGATIVE (NEGATIVE) Urine Urobilinogen 0.2 (0-1) mg/dL Urine WBC (Auto) NEGATIVE (NEGATIVE) Urine RBC (Auto) NEGATIVE (0-5) Buster/ul Urine Microscopic WBC 0-2 (0-5) /HPF Ur Epithelial Cells FEW (FEW) /HPF Urine Bacteria FEW (NEGATIVE) /HPF Urine Mucus SLIGHT (NEGATIVE) /HPF Urine Opiates Level POS. (NEGATIVE) Ur Methadone NEG. (NEGATIVE) Urine Barbiturates NEG. (NEGATIVE) Ur Phencyclidine (PCP) NEG. (NEGATIVE) Urine Amphetamine NEG. (NEGATIVE) U Benzodiazepine Level POS. (NEGATIVE) Urine Cocaine NEG. (NEGATIVE) Urine Marijuana (THC) POS. (NEGATIVE) Specimen Received [id number] 01/10/17 01/10/17 Range/Units 06:28 06:28 WBC 16.8 H (4.0-10.5) K/mm3 RBC 4.54 (4.1-5.4) M/mm3 Hgb 14.0 (12.0-16.0) gm/dl Hct 41.5 (35-47) % MCV 91.4 (78-100) fl MCH 30.8 (26-32) pg MCHC 33.7 (32-36) g/dl RDW 11.9 (11.5-14.0) % Plt Count 431 (150-450) K/mm3 MPV 9.9 H (6-9.5) fl Segmented Neutrophils 80 H (36.0-66.0) % Lymphocytes (Manual) 18 L (24-44) % Monocytes (Manual) 2 (0.0-12.0) % Differential Comment ABNORMAL Platelet Estimate NORMAL (NORMAL) Poikilocytosis 1+ Anisocytosis 1+ Rouleaux 1+ INR (0.8-3.0) APTT (25.3-37.0) SECONDS Sodium 139 (136-145) mEq/L Potassium 3.4 L (3.5-5.1) mEq/L Chloride 101 (98-107) mEq/L Carbon Dioxide 21.4 (21-32) mEq/L Anion Gap 19.9 H (5-15) MEQ/L BUN 18 (9-20) mg/dL Creatinine 1.57 H (0.55-1.30) mg/dl Estimated GFR 37 ML/MIN Glucose 268 H (70-110) MG/DL Calcium 9.8 (8.5-10.1) mg/dL Magnesium 1.5 L (1.8-2.4) mg/dL Total Bilirubin 0.30 (0.2-1.0) mg/dL AST 23 (15-37) U/L ALT 23 (12-78) U/L Alkaline Phosphatase 121 H (46-116) U/L NT-Pro-B Natriuret Pep 217 H (0-125) pg/ml Serum Total Protein 8.5 H (6.4-8.2) gm/dL Albumin 4.0 (3.4-5.0) g/dL Amylase 60 (25-115) U/L Lipase 71 L (73-393) U/L Ur Collection Type Urine Color (YELLOW) Urine Appearance (CLEAR) Urine pH (5-6) Ur Specific [place] (1.005-1.025) Urine Protein (Negative) Urine Glucose (UA) (NEGATIVE) mg/dL Urine Ketones (NEGATIVE) Urine Nitrite (NEGATIVE) Urine Bilirubin (NEGATIVE) Urine Urobilinogen (0-1) mg/dL Urine WBC (Auto) (NEGATIVE) Urine RBC (Auto) (0-5) Buster/ul Urine Microscopic WBC (0-5) /HPF Ur Epithelial Cells (FEW) /HPF Urine Bacteria (NEGATIVE) /HPF Urine Mucus (NEGATIVE) /HPF Urine Opiates Level (NEGATIVE) Ur Methadone (NEGATIVE) Urine Barbiturates (NEGATIVE) Ur Phencyclidine (PCP) (NEGATIVE) Urine Amphetamine (NEGATIVE) U Benzodiazepine Level (NEGATIVE) Urine Cocaine (NEGATIVE) Urine Marijuana (THC) (NEGATIVE) Specimen Received - Progress Discussed with Dr.: Other (SPOKE WITH DR SELLERS(HOSPITALIST AT [facility]) ([id number]) WHO ACCEPTED PT FOR TRANSFER TO [facility] A DIRECT ADMISSION.) - Departure Time of Disposition: 07:38 Departure Disposition: Transfer ([facility]) Clinical Impression: CHEST PAIN, VOMITING, HTN, HYPOMAGNESEMIA, HYPOKALEMIA, ANXIETY, DEPRESSION Condition: Fair Critical Care Time: No
[2017-01-10] MEDS ORDERED: Phenergan 25 MG INJ ONE (06:30)
[2017-01-10] MEDS ORDERED: Hydromorphone 1 mg/ml Ampule ONE ×2 (06:30→07:38)
[2017-01-10 06:31] LABS: Mean Cell Volume 91.4 fl (78-100); Mean Corpuscular Hemoglobin 30.8 pg (26-32); Mean Platelet Volume 9.9 fl (6-9.5); Platelet Count 431 K/mm3 (150-450); Red Blood Count 4.54 M/mm3 (4.1-5.4); Red Cell Distribution Width 11.9 % (11.5-14.0); White Blood Count 16.8 K/mm3 (4.0-10.5)
[2017-01-10 06:46] LABS: INR 1.09 (0.8-3.0); PROTIME 12.2 SECONDS (9.95-12.35)
[2017-01-10 06:49] LABS: PTT 37.4 SECONDS (25.3-37.0)
[2017-01-10] MEDS ORDERED: TRANDATE 20 MG/5 ML SYRINGE IV ONE ×2 (06:54→07:31)
[2017-01-10 07:04] LABS: COMPLETE URINE MICROSCOPIC? YES; Collection Type CLEAN CATCH
[2017-01-10] MEDS ORDERED: TRANDATE 100 MG/20 ML MDV FOR DRIP IV ONE ×2 (07:06→07:39)
[2017-01-10 07:17] LABS: ANION GAP 19.9 MEQ/L (5-15); BILIRUBIN,TOTAL 0.3 mg/dL (0.2-1.0); Carbon Dioxide 21.4 mEq/L (21-32); MAGNESIUM 1.5 mg/dL (1.8-2.4); Potassium 3.4 mEq/L (3.5-5.1); Total Protein 8.5 gm/dL (6.4-8.2)
[2017-01-10 07:27] LABS: ADD URINE CULTURE? NO (NO); Bacteria FEW /HPF (NEGATIVE); Epithelial Cells FEW /HPF (FEW); Mucus SLIGHT /HPF (NEGATIVE); WBC 0-2 /HPF (0-5)
[2017-01-10 07:31] LABS: Total Cells Counted 100
[2017-01-10] MEDS ORDERED: Zofran 4 MG/2 ML VIAL IV ONE (07:31)
[2017-01-10 07:32] LABS: ANISOCYTOSIS 1+; Platelet Estimate NORMAL (NORMAL); Poikilocytosis 1+
[2017-01-10] MEDS ORDERED: Zofran 4 MG/2 ML VIAL ONE (07:37)
[2017-01-10] MEDS ORDERED: Magnesium 1 Gm / 100 Ml D5W*** 100 ML IV ONE ×2 (07:39→08:01)
[2017-01-10] MEDS ORDERED: POTASSIUM CHLORIDE 20 mEq IN WATER 100ML 100 ML IV ONE ×2 (07:40→08:34)
[2017-01-10 07:56] VITALS: O2SAT 100
--- NOTE | 2017-01-10 08:03 | XRAY ---
Indication: Pain. Comparison: December 14, 2016. Portable chest again demonstrates normal heart, lungs, and bony thorax.
[2017-01-10 08:05] VITALS: PULSE 66
[2017-01-10 08:43] VITALS: BP 187/90
== END 2017-01-10 08:56 | disposition short-term general hospital (02) ==
LOC: ED 05:59
DX: R07.9 Chest pain, unspecified (principal); R11.10 Vomiting, unspecified; I10 Essential (primary) hypertension; E83.42 Hypomagnesemia; E87.6 Hypokalemia; F41.9 Anxiety disorder, unspecified; F32.9 Major depressive disorder, single episode, unspecified
CPT/HCPCS: 36000; 36415; 71010; 80053; 80307; 81000; 82150; 83690; 83735; 83880; 84484; 85025; 85610; 85730; 93005; 93041; 96360; 96361; 96365; 96366; 96374; 96375; 96376; 99285; J1170; J2405; J2550; J3475; J3480; A9270-GY

== ENCOUNTER 2019-03-23 16:24 | Observation (INO) | payer OTHER ==
[2019-03-23] MEDS ORDERED: Sodium Chloride 0.9% 1000 ML 1,000 ML IV SCH ×2 (16:30→18:44)
--- NOTE | 2019-03-23 16:38 | ERPHSYRPT ---
- History of Present Illness Time Seen by Provider: 03/23/19 16:28 Source: patient, EMS Exam Limitations: no limitations Physician History: 53-year-old white female brought by medics with complaint of a deliberate overdose of Seroquel. Patient states she was tired of hurting apparently has chronic neck pain so she decided to take an overdose of Seroquel. She denies trying to kill herself. She denies alcohol use drug use. Patient was given Narcan by medics Past medical history includes high blood pressure, asthma, anxiety, depression Past surgical history includes orthopedic surgery, hysterectomy, exploratory laparoscopy, cervical/neck disc surgery x2 Timing/Duration: today Severity: moderate Modifying Factors: Improves With: other (delivered overdose of Seroquel four 300 mg tablets) Associated Symptoms: No nausea, No vomiting, No abdominal pain, No shortness of breath, No heartburn, No diaphoresis, No cough, No chills, No chest pain, No fever, No headaches, No loss of appetite, No malaise, No rash, No syncope, No seizure, No weakness Allergies/Adverse Reactions: gabapentin [From Neurontin] Allergy (Intermediate, Verified 03/23/19 16:45) Rash Penicillins Adverse Reaction (Intermediate, Verified 03/23/19 16:45) Nausea and Vomiting Home Medications: Quetiapine Fumarate [Seroquel] 300 mg PO HS 02/11/16 [History] Albuterol 8 gm Mdi Hfa [Ventolin Hfa MDI] 18 gm IH Q4H 09/16/16 [History] Tiotropium Wolf Inhaler [Spiriva 18 Mcg/Cap Inhaler] 1 ea IH DAILY 09/01 [History] raNITIdine HCl [Ranitidine HCl] 150 mg PO DAILY 10/20/16 [History] Diazepam 5 mg [Valium 5 MG] 5 mg PO BID 12/14/16 [History] Amlodipine Besylate 10 mg PO DAILY 03/23/19 [History] Atorvastatin Calcium [Lipitor] 20 mg PO DAILY 03/23/19 [History] Hx Tetanus, Diphtheria Vaccination/Date Given: Yes Hx Influenza Vaccination/Date Given: No Hx Pneumococcal Vaccination/Date Given: No - Review of Systems Constitutional: No Fever, No Chills Eyes: No Symptoms Ears, Nose, & Throat: No Symptoms Respiratory: No Cough, No Dyspnea Cardiac: No Chest Pain, No Edema, No Syncope Abdominal/Gastrointestinal: No Abdominal Pain, No Nausea, No Vomiting, No Diarrhea Genitourinary Symptoms: No Dysuria Musculoskeletal: Neck Pain (cchronic neck pain), No Arthralgias, No Back Pain, No Deformity, No Fall, No Injury, No Joint Redness, No Joint Pain, No Joint Swelling, No Myalgias, No Other Skin: No Rash Neurological: No Dizziness, No Focal Weakness, No Sensory Changes Psychological: Other (delivered overdose of Seroquel) Endocrine: No Symptoms All Other Systems: Reviewed and Negative - Past Medical History Pertinent Past Medical History: Yes Neurological History: No Pertinent History ENT History: No Pertinent History Cardiac History: Hypertension Respiratory History: Asthma Endocrine Medical History: No Pertinent History Musculoskeletal History: No Pertinent History GI Medical History: No Pertinent History History: No Pertinent History Psycho-Social History: Anxiety, Depression Female Reproductive Disorders: No Pertinent History - Past Surgical History Past Surgical History: Yes Neuro Surgical History: No Pertinent History Cardiac: No Pertinent History Respiratory: No Pertinent History Gastrointestinal: No Pertinent History Genitourinary: No Pertinent History Musculoskeletal: Orthopedic Surgery Female Surgical History: Hysterectomy, Other Other Surgical History: exploratory lap prior to hysterectomy, cervical/neck disc surgery twice - Social History Smoking Status: Current every day smoker How long have you smoked: 15yrs Exposure to second hand smoke: No Drug Use: none Patient Lives Alone: No - Nursing Vital Signs Nursing Vital Signs: Initial Vital Signs Pulse Rate 128 H 03/23/19 16:30 Blood Pressure 116/77 03/23/19 16:30 O2 Sat by Pulse Oximetry 98 03/23/19 16:30 Pain Scale Pain Intensity 8 - Physical Exam General Appearance: no apparent distress, alert Eye Exam: PERRL/EOMI, eyes nml inspection Ears, Nose, Throat Exam: normal ENT inspection, TMs normal, pharynx normal, moist mucous membranes Neck Exam: normal inspection, non-tender, supple, full range of motion Respiratory Exam: normal breath sounds, lungs clear, No respiratory distress Cardiovascular Exam: regular rate/rhythm, normal heart sounds, normal peripheral pulses, capillary refill <2 sec Gastrointestinal/Abdomen Exam: soft, normal bowel sounds, No tenderness, No mass Back Exam: normal inspection, normal range of motion, No CVA tenderness, No vertebral tenderness Extremity Exam: normal inspection, normal range of motion, pelvis stable Neurologic Exam: alert, oriented x 3, cooperative, employment consultant II-XII nml as tested, normal mood/affect, nml cerebellar function, nml station & gait, sensation nml, No motor deficits Skin Exam: normal color, warm, dry, No rash Lymphatic Exam: No adenopathy SpO2 Interpretation: normal - Course Nursing assessment & vital signs reviewed: Yes EKG Interpreted by Me: RATE (127 bpm), Sinus Tach, NORMAL AXIS, Other (EKG: Sinus tachycardia, 127 bpm, nnormal axis,, no acute ST or T wave changes) - Radiology Exams Chest X-ray Interpretation: Interpreted by me (cxr: no acute disease process noted) Ordered Tests: Active Orders 24 hr Category Date Time Status EKG-ER Only STAT Care 03/23/19 16:27 Active IV Insertion STAT Care 03/23/19 16:27 Active Pulse Oximetry (ED) STAT Care 03/23/19 16:32 Active CHEST 1 VIEW (PORTABLE) Stat Exams 03/23/19 17:00 Taken ACETAMINOPHEN Stat Lab 03/23/19 16:35 Completed CBC W DIFF Stat Lab 03/23/19 16:35 Completed CMP Stat Lab 03/23/19 16:35 Completed ETHYL ALCOHOL Stat Lab 03/23/19 16:35 Completed SALICYLATE Stat Lab 03/23/19 16:35 Completed UA W/RFX UR CULTURE Stat Lab 03/23/19 17:20 Completed Urine Triage Profile Stat Lab 03/23/19 17:20 Completed Medication Summary Generic Name Dose Route Start Last Admin Trade Name Freq PRN Reason Stop Dose Admin Sodium Chloride 1,000 mls @ 100 mls/hr 03/23/19 16:30 03/23/19 17:09 Sodium Chloride 0.9% 1000 Ml IV 04/22/19 16:29 100 mls/hr .Q10H BARBARA Administration Potassium Chloride 100 mls @ 50 mls/hr 03/23/19 16:58 03/23/19 17:09 Potassium Chloride 20 Meq In Water 100ml IV 03/23/19 18:57 50 mls/hr STAT ONE Administration Discontinued Medications Generic Name Dose Route Start Last Admin Trade Name Freq PRN Reason Stop Dose Admin Potassium Chloride Confirm 03/23/19 17:03 Potassium Chloride 20 Meq In Water 100ml Administered 03/23/19 17:04 Dose 100 mls @ ud IV .STK-MED ONE Lorazepam 1 mg 03/23/19 16:57 03/23/19 17:04 Ativan 2 Mg/1 Ml Vial IV 03/23/19 16:58 1 mg STAT ONE Administration Lorazepam Confirm 03/23/19 16:57 Ativan 2 Mg/1 Ml Vial Administered 03/23/19 16:58 Dose 2 mg .ROUTE .STK-MED ONE Lab/Rad Data: Laboratory Result Diagrams 03/23/19 16:35 03/23/19 16:35 Laboratory Results 03/23/19 03/23/19 03/23/19 Range/Units 17:20 17:20 16:35 WBC (4.0-10.5) K/mm3 RBC (4.1-5.4) M/mm3 Hgb (12.0-16.0) gm/dl Hct (35-47) % MCV (78-100) fl MCH (26-32) pg MCHC (32-36) g/dl RDW (11.5-14.0) % Plt Count (150-450) K/mm3 MPV (6-9.5) fl Gran % (36.0-66.0) % Eos # (Auto) (0-0.5) Absolute Lymphs (auto) (1.0-4.6) Absolute Monos (auto) (0.0-1.3) Lymphocytes % (24.0-44.0) % Monocytes % (0.0-12.0) % Eosinophils % (0.00-5.0) % Basophils % (0.0-0.4) % Absolute Granulocytes (1.4-6.9) Basophils # (0-0.4) Sodium 140 (137-145) mmol/L Potassium 2.8 L* (3.5-5.1) mmol/L Chloride 111 H (98-107) mmol/L Carbon Dioxide 21 L (22-30) mmol/L Anion Gap 11.6 (5-15) MEQ/L BUN 12 (7-17) mg/dL Creatinine 1.02 (0.52-1.04) mg/dL Estimated GFR > 60.0 ML/MIN Glucose 220 H (74-106) mg/dL Calcium 8.7 (8.4-10.2) mg/dL Total Bilirubin 0.40 (0.2-1.3) mg/dL AST 35 (14-36) U/L ALT 39 H (0-35) U/L Alkaline Phosphatase 131 H (38-126) U/L Serum Total Protein 7.2 (6.3-8.2) g/dL Albumin 3.7 (3.5-5.0) g/dL Urine Color YELLOW (YELLOW) Urine Appearance SLIGHTLY CLOUDY (CLEAR) Urine pH 7.0 (5-6) Ur Specific Robards 1.006 (1.005-1.025) Urine Protein NEGATIVE (Negative) Urine Ketones NEGATIVE (NEGATIVE) Urine Blood NEGATIVE (0-5) Buster/ul Urine Nitrite NEGATIVE (NEGATIVE) Urine Bilirubin NEGATIVE (NEGATIVE) Urine Urobilinogen NEGATIVE (0-1) mg/dL Ur Leukocyte Esterase NEGATIVE (NEGATIVE) Urine WBC (Auto) 3-5 (0-5) /HPF Urine RBC (Auto) 0-2 (0-2) /HPF U Epithel Cells (Auto) RARE (FEW) /HPF Urine Bacteria (Auto) FEW (NEGATIVE) /HPF Urine Culture Reflexed NO (NO) Urine Glucose NEGATIVE (NEGATIVE) mg/dL Salicylates < 1.0 L (2-20) mg/dL Urine Opiates Level NEGATIVE (NEGATIVE) Ur Methadone NEGATIVE (NEGATIVE) Acetaminophen < 10 L (10-30) ug/ml Urine Barbiturates NEGATIVE (NEGATIVE) Ur Phencyclidine (PCP) NEGATIVE (NEGATIVE) Urine Amphetamine NEGATIVE (NEGATIVE) U Benzodiazepine Level POSITIVE (NEGATIVE) Urine Cocaine NEGATIVE (NEGATIVE) Urine Marijuana (THC) NEGATIVE (NEGATIVE) Ethyl Alcohol < 10 (0-10) mg/dL 03/23/19 Range/Units 16:35 WBC 10.5 (4.0-10.5) K/mm3 RBC 4.20 (4.1-5.4) M/mm3 Hgb 13.3 (12.0-16.0) gm/dl Hct 39.0 (35-47) % MCV 92.9 (78-100) fl MCH 31.7 (26-32) pg MCHC 34.1 (32-36) g/dl RDW 12.5 (11.5-14.0) % Plt Count 229 (150-450) K/mm3 MPV 10.3 H (6-9.5) fl Gran % 67.4 H (36.0-66.0) % Eos # (Auto) 0.14 (0-0.5) Absolute Lymphs (auto) 2.41 (1.0-4.6) Absolute Monos (auto) 0.82 (0.0-1.3) Lymphocytes % 23.1 L (24.0-44.0) % Monocytes % 7.8 (0.0-12.0) % Eosinophils % 1.3 (0.00-5.0) % Basophils % 0.4 (0.0-0.4) % Absolute Granulocytes 7.04 H (1.4-6.9) Basophils # 0.04 (0-0.4) Sodium (137-145) mmol/L Potassium (3.5-5.1) mmol/L Chloride (98-107) mmol/L Carbon Dioxide (22-30) mmol/L Anion Gap (5-15) MEQ/L BUN (7-17) mg/dL Creatinine (0.52-1.04) mg/dL Estimated GFR ML/MIN Glucose (74-106) mg/dL Calcium (8.4-10.2) mg/dL Total Bilirubin (0.2-1.3) mg/dL AST (14-36) U/L ALT (0-35) U/L Alkaline Phosphatase (38-126) U/L Serum Total Protein (6.3-8.2) g/dL Albumin (3.5-5.0) g/dL Urine Color (YELLOW) Urine Appearance (CLEAR) Urine pH (5-6) Ur Specific Robards (1.005-1.025) Urine Protein (Negative) Urine Ketones (NEGATIVE) Urine Blood (0-5) Buster/ul Urine Nitrite (NEGATIVE) Urine Bilirubin (NEGATIVE) Urine Urobilinogen (0-1) mg/dL Ur Leukocyte Esterase (NEGATIVE) Urine WBC (Auto) (0-5) /HPF Urine RBC (Auto) (0-2) /HPF U Epithel Cells (Auto) (FEW) /HPF Urine Bacteria (Auto) (NEGATIVE) /HPF Urine Culture Reflexed (NO) Urine Glucose (NEGATIVE) mg/dL Salicylates (2-20) mg/dL Urine Opiates Level (NEGATIVE) Ur Methadone (NEGATIVE) Acetaminophen (10-30) ug/ml Urine Barbiturates (NEGATIVE) Ur Phencyclidine (PCP) (NEGATIVE) Urine Amphetamine (NEGATIVE) U Benzodiazepine Level (NEGATIVE) Urine Cocaine (NEGATIVE) Urine Marijuana (THC) (NEGATIVE) Ethyl Alcohol (0-10) mg/dL - Progress Progress: improved Progress Note: 03/23/19 18:08 33-year-old white female who arrives with complaint that the patient had taken 4 300 mg Seroquel tablets. She apparently was upset that she has had chronic neck pain and was having leg pain and she took these tablets apparently she had told the police that she "wanted to end it all". She tells me that she just took them because she was hurting. Patient arrives she had already received Narcan from the medics she is alert and oriented she did have a brief period where she appeared to have restless legs and was mildly agitated. She was given Ativan 1 mg IV this seemed to have helped the patient somewhat patient with the heart rate of 128 on arrival currently 110 Blood pressure is stable Patient was EKG of sinus tachycardia 127 beats per minute normal axis no acute ST or T wave changes are noted Patient's labs urine drug screen positive for benzodiazepines urinalysis essentially normal Patient's chemistry sodium 140 potassium 2.8 chloride 111 bicarbonate 21 BUN 12 creatinine is 1.02 glucose 220 CBC white blood cell of 10.5 hemoglobin 13.3 hematocrit 39.0 platelets 229 patient's blood alcohol level is negative as was acetaminophen level and salicylate level Patient was given normal saline at 100 mL per hour patient also given Ativan 1 mg IV potassium K. rider 20 mEq was also started. Case was discussed with Dr. Randall will place patient on ICU observation telemetry. Impression 1 suicidal ideation 2 intentional overdose of Seroquel 3. Hypokalemia. - Departure Departure Disposition: Observation Clinical Impression: Suicidal ideation, intentional overdose of Seroquel, Hypokalemia Condition: Fair Critical Care Time: No Referrals: JANIYA RANDALL [ACTIVE STAFF] -
[2019-03-23 16:43] LABS: BASOPHIL % 0.4 % (0.0-0.4); Basophil (Absolute #) 0.04 (0-0.4); Eosinophil % 1.3 % (0.00-5.0); Eosinophil (Absolute #) 0.14 (0-0.5); Granulocyte Absolute (ANC) 7.04 (1.4-6.9); Granulocytes % 67.4 % (36.0-66.0); Hemoglobin 13.3 gm/dl (12.0-16.0); Lymphocyte (Absolute #) 2.41 (1.0-4.6); Lymphocytes % 23.1 % (24.0-44.0); Mean Cell Volume 92.9 fl (78-100); Mean Corpuscular Hemoglobin 31.7 pg (26-32); Mean Corpuscular Hgb Concent. 34.1 g/dl (32-36); Mean Platelet Volume 10.3 fl (6-9.5); Monocyte (Absolute #) 0.82 (0.0-1.3); Monocytes % 7.8 % (0.0-12.0); Platelet Count 229 K/mm3 (150-450); Red Cell Distribution Width 12.5 % (11.5-14.0); White Blood Count 10.5 K/mm3 (4.0-10.5)
[2019-03-23 16:54] LABS: ALBUMIN 3.7 g/dL (3.5-5.0); ALKALINE PHOSPHATASE 131 U/L (38-126); ANION GAP 11.6 MEQ/L (5-15); BLOOD UREA NITROGEN 12 mg/dL (7-17); CHLORIDE 111 mmol/L (98-107); Calcium 8.7 mg/dL (8.4-10.2); Carbon Dioxide 21 mmol/L (22-30); Creatinine 1 1.02 mg/dL (0.52-1.04); Glucose 220 mg/dL (74-106); SGOT/AST 35 U/L (14-36); SGPT/ALT 39 U/L (0-35); SODIUM 140 mmol/L (137-145); Total Protein 7.2 g/dL (6.3-8.2)
[2019-03-23 16:56] LABS: ACETAMINOPHEN < 10 ug/ml (10-30); ETHYL ALCOHOL < 10 mg/dL (0-10); Potassium 2.8 mmol/L (3.5-5.1); SALICYLATE < 1.0 mg/dL (2-20)
[2019-03-23] MEDS ORDERED: Ativan 2 MG/1 ML VIAL IV ONE (16:57)
[2019-03-23] MEDS ORDERED: Ativan 2 MG/1 ML VIAL ONE (16:57)
[2019-03-23] MEDS ORDERED: POTASSIUM CHLORIDE 20 mEq IN WATER 100ML 100 ML IV ONE ×2 (16:58→17:03)
[2019-03-23] MEDS ORDERED: Sodium Chloride 0.9% 1000 ML 1,000 ML ONE (16:58)
[2019-03-23 17:33] LABS: Appearance SLIGHTLY CLOUDY (CLEAR); Bacteria FEW /HPF (NEGATIVE); Bilirubin NEGATIVE (NEGATIVE); Blood NEGATIVE Ery/ul (0-5); Epithelial Cells RARE /HPF (FEW); Glucose NEGATIVE (NEGATIVE); Ketones NEGATIVE (NEGATIVE); Leukocyte Esterase NEGATIVE (NEGATIVE); Nitrite NEGATIVE (NEGATIVE); Protein,Urine Dip NEGATIVE (Negative); RBC 0-2 /HPF (0-2); Specific Gravity 1.006 (1.005-1.025); Urobilinogen NEGATIVE mg/dL (0-1)
[2019-03-23 17:52] LABS: Amphetamine,Urine NEGATIVE (NEGATIVE); Barbiturate,Urine NEGATIVE (NEGATIVE); Benzodiazepine,Urine POSITIVE (NEGATIVE); Cocaine,Urine NEGATIVE (NEGATIVE); Methadone,Urine NEGATIVE (NEGATIVE); Opiate,Urine NEGATIVE (NEGATIVE); PCP,Urine NEGATIVE (NEGATIVE); THC,Urine NEGATIVE (NEGATIVE)
[2019-03-23] MEDS ORDERED: Ativan 2 MG/1 ML VIAL IV PRN (18:44)
[2019-03-23] MEDS ORDERED: NovoLOG Insulin SQ PRN (18:44)
[2019-03-24 05:08] LABS: BASOPHIL % 0.2 % (0.0-0.4); Basophil (Absolute #) 0.02 (0-0.4); Eosinophil % 1.2 % (0.00-5.0); Eosinophil (Absolute #) 0.14 (0-0.5); Granulocyte Absolute (ANC) 7.56 (1.4-6.9); Granulocytes % 65.6 % (36.0-66.0); Hematocrit 38.8 % (35-47); Hemoglobin 13.1 gm/dl (12.0-16.0); Lymphocyte (Absolute #) 2.98 (1.0-4.6); Lymphocytes % 25.8 % (24.0-44.0); Mean Cell Volume 92.6 fl (78-100); Mean Corpuscular Hemoglobin 31.3 pg (26-32); Mean Corpuscular Hgb Concent. 33.8 g/dl (32-36); Mean Platelet Volume 10.9 fl (6-9.5); Monocyte (Absolute #) 0.83 (0.0-1.3); Monocytes % 7.2 % (0.0-12.0); Platelet Count 248 K/mm3 (150-450); Red Blood Count 4.19 M/mm3 (4.1-5.4); Red Cell Distribution Width 12.6 % (11.5-14.0); White Blood Count 11.5 K/mm3 (4.0-10.5)
[2019-03-24 05:23] LABS: ALBUMIN 3.8 g/dL (3.5-5.0); ALKALINE PHOSPHATASE 124 U/L (38-126); ANION GAP 10.3 MEQ/L (5-15); BLOOD UREA NITROGEN 9 mg/dL (7-17); CHLORIDE 110 mmol/L (98-107); Calcium 9.2 mg/dL (8.4-10.2); Carbon Dioxide 25 mmol/L (22-30); Creatinine 1 0.84 mg/dL (0.52-1.04); Glucose 99 mg/dL (74-106); SGOT/AST 33 U/L (14-36); SGPT/ALT 39 U/L (0-35); SODIUM 142 mmol/L (137-145); Total Protein 7.4 g/dL (6.3-8.2)
--- NOTE | 2019-03-24 08:59 | XRAY ---
Indication: Cough. Comparison: January 10, 2018. Portable chest again demonstrates normal heart and lungs. Bony thorax intact. No new/acute findings.
[2019-03-24] MEDS ORDERED: PROVENTIL COMMON CANISTER IH PRN (09:15)
[2019-03-24] MEDS ORDERED: Ventolin Hfa MDI IH SCH (09:15)
[2019-03-24] MEDS: POTASSIUM CHLORIDE 20 mEq IN WATER 100ML 20 MEQ/100 ML BAG IV SCH ×2 (09:42→11:32)
[2019-03-24] MEDS ORDERED: Effexor ER 37.5 MG PO SCH (10:00)
[2019-03-24] MEDS ORDERED: Spiriva 18 Mcg/Cap Inhaler IH SCH (10:00)
[2019-03-24] MEDS ORDERED: Valium 5 MG PO SCH (10:00)
[2019-03-24] MEDS ORDERED: Pepcid 20 MG PO SCH (10:00)
[2019-03-24] MEDS ORDERED: NORVASC 5 MG PO SCH (10:00)
[2019-03-24] MEDS ORDERED: Klor Con 10 MEQ PO SCH (10:00)
[2019-03-24] MEDS ORDERED: NON-FORMULARY ITEM (Ranitidine Hcl [Ranitidine Hcl] 150 MG) PO SCH (10:00)
[2019-03-24] MEDS ORDERED: ZOCOR 20MG PO SCH (10:00)
[2019-03-24] MEDS ORDERED: NON-FORMULARY ITEM (Atorvastatin Calcium [Lipitor] 20 MG) PO SCH (10:00)
--- NOTE | 2019-03-24 10:44 | SSS ---
DISCHARGE DIAGNOSES: 1) INTENTIONAL OVERDOSE OF SEROQUEL DUE TO PAIN. 2) CHRONIC PAIN. 3) DEPRESSION. HOSPITAL COURSE: The patient is a 53 year-old white female who presents to the emergency room who was called by her sister. The patient reports that she took four Seroquel pills because she just wanted to go to sleep. She reports she has been in pain and was feeling bad about everything. After she took the four pills she was slurring her speech and unsteady gait. They therefore brought her to the emergency room for evaluation and management. The patient reports that she presently has no thoughts of doing herself harm. She just wanted to be able to sleep. She reports she has been unable to get her Effexor as of about eight months ago and does not feel quite right since that time. She reports that apparently her got into with our office and she has been unable to see us because she has been discharged from our practice due to her 's actions. HOME MEDICATIONS: Her home medications presently are Albuterol PRN, amlodipine 10 mg a day, atorvastatin 20 mg a day, diazepam 5 mg b.i.d., Seroquel 300 mg a night, ranitidine 150 mg daily and Spiriva inhaler. ALLERGIES: GABAPENTIN, PENICILLIN. PHYSICAL EXAMINATION: The patient's vital signs on admission showed pulse 128, blood pressure 116/77. O2 saturation 98%. HEENT: Normocephalic, atraumatic. Pupils equal round reactive to light. Extraocular movements intact. Oropharynx is pink and moist. NECK: Supple without lymphadenopathy, thyromegaly or JVD. CHEST: Clear to auscultation. HEART: Regular rate and rhythm without murmurs, rubs or gallops. ABDOMEN: Soft. No palpable masses. EXTREMITIES: Without cyanosis, clubbing or edema. NEUROLOGIC: The patient is alert and oriented x3. No focal deficits were noted. LAB DATA AND TESTS: The patient's labs reveal her to be hypokalemic. The patient reports that every time she comes in that she is low on her potassium and at this time she was 2.8 on her initial evaluation. Her sugar was 220, BUN 12, creatinine 1.02. Electrolytes were essentially normal otherwise. Liver enzymes showed a slight elevation in the SGPT of 39, ALT 131 which are minimally elevated. Her acetaminophen, salicylate and ETOH were negative. Her CBC was normal. Urine drug screen was positive for benzodiazepines but otherwise negative. UA was normal. Repeat potassium showed the patient to be up to 3.7 by 2115 but back down to 3.0 by the morning. We gave her a second potassium rider and placed her on 10 mEq of potassium daily as well. The patient currently has a [facility] consult pending which will likely recommend outpatient treatment. We will place her back on her Effexor and we will attempt to get her in to see Dr. Ruiz for pain management. The patient will be seen in follow up in the office in one week.
[2019-03-24] MEDS ORDERED: TYLENOL 325 MG PO PRN (13:57)
[2019-03-24 15:29] VITALS: PULSE 92
[2019-03-24 15:36] VITALS: BP 134/95; O2SAT 97
[2019-03-24] MEDS ORDERED: Seroquel 100 MG PO SCH (22:00)
[2019-03-24] MEDS ORDERED: QUETIAPINE FUMARATE 300 MG PO SCH (22:00)
== END 2019-03-24 16:25 ==
LOC: ED 16:24 → ICU 18:30
PROVIDERS: ADMIT Family Medicine; ATTEND Family Medicine
DX: T43.592A Poisoning by other antipsychotics and neuroleptics, intentional self-harm, initial encounter (principal); G89.29 Other chronic pain; F32.9 Major depressive disorder, single episode, unspecified; E87.6 Hypokalemia
CPT/HCPCS: 36000; 36415; 71045; 80053; 80307; 81001; 84132; 85025; 93005; 94760; 99285; G0481; 90791; 93268; 96365; 96366; 96374; J2060; J3480; Q3014; A9270-GY; G0378; G0480

== ENCOUNTER 2019-10-13 16:57 | Emergency (ER) | payer OTHER ==
--- NOTE | 2019-10-13 17:04 | ERPHSYRPT ---
- History of Present Illness Time Seen by Provider: 10/13/19 17:04 Historian: patient, family Exam Limitations: no limitations Physician History: This is a 54-year-old white female who presents with sharp stabbing substernal centrally located chest pain with radiation to her left shoulder and arm. Patient states the pain started today. She has no documented history of cardiac disease. However she does have history of peripheral vascular disease with a stent in the left lower leg as well as a stent in the left renal artery. Patient is on Plavix. Patient does have a history of kidney disease, COPD/ asthma, hypertension and hypercholesterolemia. In addition she has a history of anxiety and depression. Patient smokes 1 pack of cigarettes a day. Patient' s blood pressure medications include clonidine and amlodipine. Timing/Duration: today Quality: sharpness Location: substernal, central Chest Pain Radiation: arm Severity of Pain-Max: moderate Severity of Pain-Current: moderate Modifying Factors: Improves With: nothing Associated Symptoms: denies symptoms Prior Chest Pain/Cardiac Workup: no prior chest pain, no prior cardiac workup Nitro Today/Relief: no nitro taken today Aspirin Treatment Today: no aspirin today Allergies/Adverse Reactions: gabapentin [From Neurontin] Allergy (Intermediate, Verified 10/13/19 17:00) Rash Penicillins Adverse Reaction (Intermediate, Verified 10/13/19 17:00) Nausea and Vomiting Home Medications: Albuterol 8 gm Mdi Hfa [Ventolin Hfa MDI] 18 gm IH Q4H 09/16/16 [History] raNITIdine HCl [Ranitidine HCl] 150 mg PO DAILY 10/20/16 [History] Amlodipine Besylate 10 mg PO DAILY 03/23/19 [History] Atorvastatin Calcium [Lipitor] 20 mg PO DAILY 03/23/19 [History] Clonidine HCl 0.1 mg [Catapres 0.1 MG] 1 tab PO BID 10/13/19 [History] Clopidogrel Bisulfate 75 mg [PLAVIX 75 MG Tablet] 1 tab PO DAILY 10/13/19 [History] Pregabalin [Lyrica 75 mg Cap] 75 mg PO BID 10/13/19 [History] Hx Tetanus, Diphtheria Vaccination/Date Given: Yes Hx Influenza Vaccination/Date Given: No Hx Pneumococcal Vaccination/Date Given: No - Review of Systems Constitutional: No Symptoms Eyes: No Symptoms Ears, Nose, & Throat: No Symptoms Respiratory: No Symptoms Cardiac: Chest Pain Abdominal/Gastrointestinal: No Symptoms Genitourinary Symptoms: No Symptoms Musculoskeletal: No Symptoms Skin: No Symptoms Neurological: No Symptoms Psychological: No Symptoms Endocrine: No Symptoms Hematologic/Lymphatic: No Symptoms Immunological/Allergic: No Symptoms All Other Systems: Reviewed and Negative - Past Medical History Pertinent Past Medical History: Yes Neurological History: No Pertinent History ENT History: No Pertinent History Cardiac History: Hypertension Respiratory History: Asthma Endocrine Medical History: No Pertinent History Musculoskeletal History: No Pertinent History GI Medical History: No Pertinent History History: No Pertinent History Psycho-Social History: Anxiety, Depression Female Reproductive Disorders: No Pertinent History - Past Surgical History Past Surgical History: Yes Neuro Surgical History: No Pertinent History Cardiac: No Pertinent History Respiratory: No Pertinent History Gastrointestinal: No Pertinent History Genitourinary: No Pertinent History Musculoskeletal: Orthopedic Surgery Female Surgical History: Hysterectomy, Other Other Surgical History: exploratory lap prior to hysterectomy, cervical/neck disc surgery twice - Social History Smoking Status: Current every day smoker How long have you smoked: 15yrs Exposure to second hand smoke: No Drug Use: none Patient Lives Alone: No - Nursing Vital Signs Nursing Vital Signs: Initial Vital Signs Temperature 98.1 F 10/13/19 17:00 Pulse Rate 81 10/13/19 17:00 Respiratory Rate 18 10/13/19 17:00 Blood Pressure 198/123 10/13/19 17:00 O2 Sat by Pulse Oximetry 100 10/13/19 17:00 Pain Scale Pain Intensity 0 - Physical Exam General Appearance: mild distress, alert, anxiety Eye Exam: PERRL/EOMI, eyes nml inspection Ears, Nose, Throat Exam: normal ENT inspection, moist mucous membranes Neck Exam: normal inspection, non-tender, supple, full range of motion Respiratory Exam: normal breath sounds, chest tenderness, lungs clear, airway intact, No respiratory distress Cardiovascular Exam: regular rate/rhythm, normal heart sounds, normal peripheral pulses Gastrointestinal/Abdomen Exam: soft, normal bowel sounds, No tenderness Pelvic Exam: not done Rectal Exam: not done Back Exam: normal inspection, normal range of motion, No CVA tenderness, No vertebral tenderness Extremity Exam: normal inspection, normal range of motion, pelvis stable Neurologic Exam: alert, oriented x 3, cooperative, 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 Skin Exam: normal color, warm, dry Lymphatic Exam: No adenopathy SpO2 Interpretation: normal O2 Delivery: Room Air - Course Nursing assessment & vital signs reviewed: Yes EKG Interpreted by Me: RATE (79), Sinus Rhythm, NORMAL AXIS, NORMAL INTERVALS, NORMAL QRS, Other (No comparison EKG) Ordered Tests: Active Orders 24 hr Category Date Time Status End Packer STAT Care 10/13/19 17:06 Active EKG-ER Only STAT Care 10/13/19 17:05 Active IV Insertion STAT Care 10/13/19 17:05 Active Pulse Oximetry (ED) STAT Care 10/13/19 17:05 Active CHEST 1 VIEW (PORTABLE) Stat Exams 10/13/19 17:06 Taken CHEST WITH CONTRAST [CT] Stat Exams 10/13/19 18:26 Taken CBC W DIFF Stat Lab 10/13/19 17:02 Completed CMP Stat Lab 10/13/19 17:02 Completed D-DIMER QUANTITATIVE Stat Lab 10/13/19 17:02 Completed NT PRO BNP Stat Lab 10/13/19 17:02 Completed PROTIME WITH INR Stat Lab 10/13/19 17:02 Completed TROPONIN Q3H Lab 10/13/19 17:02 Completed TROPONIN Q3H Lab 10/13/19 20:15 Completed TROPONIN Q3H Lab 10/13/19 23:15 Ordered TROPONIN Q3H Lab 10/14/19 02:15 Ordered TROPONIN Q3H Lab 10/14/19 05:15 Ordered Medication Summary Generic Name Dose Route Start Last Admin Trade Name Freq PRN Reason Stop Dose Admin Sodium Chloride 1,000 mls @ 50 mls/hr 10/13/19 17:15 10/13/19 17:31 Sodium Chloride 0.9% 1000 Ml IV 11/12/19 17:14 50 mls/hr .Q20H BARBARA Administration Discontinued Medications Generic Name Dose Route Start Last Admin Trade Name Freq PRN Reason Stop Dose Admin Aspirin 324 mg 10/13/19 17:05 10/13/19 17:29 Baby Aspirin 81 Mg Chew PO 10/13/19 17:06 324 mg STAT ONE Administration Aspirin Confirm 10/13/19 17:28 Baby Aspirin 81 Mg Chew Administered 10/13/19 17:29 Dose 324 mg .ROUTE .STK-MED ONE Diphenhydramine HCl 50 mg 10/13/19 19:28 10/13/19 19:34 Benadryl 50 Mg/Ml IV 10/13/19 19:29 50 mg STAT ONE Administration Diphenhydramine HCl Confirm 10/13/19 19:31 Benadryl 50 Mg/Ml Administered 10/13/19 19:32 Dose 50 mg .ROUTE .STK-MED ONE Hydralazine HCl 5 mg 10/13/19 18:36 10/13/19 18:49 Apresoline 20 Mg/Ml Inj IV 10/13/19 18:37 5 mg STAT ONE Administration Hydralazine HCl Confirm 10/13/19 18:38 Apresoline 20 Mg/Ml Inj Administered 10/13/19 18:39 Dose 20 mg .ROUTE .STK-MED ONE Hydralazine HCl 10 mg 10/13/19 19:54 10/13/19 20:11 Apresoline 20 Mg/Ml Inj IV 10/13/19 19:55 10 mg STAT ONE Administration Hydralazine HCl Confirm 10/13/19 20:00 Apresoline 20 Mg/Ml Inj Administered 10/13/19 20:01 Dose 20 mg .ROUTE .STK-MED ONE Lorazepam 1 mg 10/13/19 19:57 10/13/19 20:09 Ativan 2 Mg/1 Ml Vial IV 10/13/19 19:58 1 mg STAT ONE Administration Lorazepam Confirm 10/13/19 20:00 Ativan 2 Mg/1 Ml Vial Administered 10/13/19 20:01 Dose 2 mg .ROUTE .STK-MED ONE Methylprednisolone Sodium Succinate 125 mg 10/13/19 19:29 10/13/19 19:34 Solu-Medrol 125 Mg IV 10/13/19 19:30 125 mg STAT ONE Administration Methylprednisolone Sodium Succinate Confirm 10/13/19 19:31 Solu-Medrol 125 Mg Administered 10/13/19 19:32 Dose 125 mg .ROUTE .STK-MED ONE Morphine Sulfate 4 mg 10/13/19 17:05 10/13/19 17:31 Morphine Sulfate 4 Mg Inj IV 10/13/19 17:06 4 mg STAT ONE Administration Morphine Sulfate Confirm 10/13/19 17:29 Morphine Sulfate 4 Mg Inj Administered 10/13/19 17:30 Dose 4 mg .ROUTE .STK-MED ONE Morphine Sulfate 4 mg 10/13/19 18:32 10/13/19 18:48 Morphine Sulfate 4 Mg Inj IV 10/13/19 18:33 4 mg STAT ONE Administration Morphine Sulfate Confirm 10/13/19 18:38 Morphine Sulfate 4 Mg Inj Administered 10/13/19 18:39 Dose 4 mg .ROUTE .STK-MED ONE Nitroglycerin 0.4 mg 10/13/19 17:05 10/13/19 17:30 Nitrostat 0.4 Mg (Ed) SL 10/13/19 17:06 0.4 mg STAT ONE Administration Nitroglycerin Confirm 10/13/19 17:28 Nitrostat 0.4 Mg (Ed) Administered 10/13/19 17:29 Dose 0.4 mg SL .STK-MED ONE Ondansetron HCl 4 mg 10/13/19 17:05 10/13/19 17:30 Zofran 4 Mg/2 Ml Vial IV 10/13/19 17:06 4 mg STAT ONE Administration Ondansetron HCl Confirm 10/13/19 17:28 Zofran 4 Mg/2 Ml Vial Administered 10/13/19 17:29 Dose 4 mg .ROUTE .STK-MED ONE Potassium Chloride 10 meq 10/13/19 19:21 10/13/19 19:24 Klor Con 10 Meq PO 10/13/19 19:22 10 meq STAT ONE Administration Potassium Chloride Confirm 10/13/19 19:24 Klor Con 10 Meq Administered 10/13/19 19:25 Dose 10 meq PO .STK-MED ONE Lab/Rad Data: Laboratory Result Diagrams 10/13/19 17:02 10/13/19 17:02 Laboratory Results 10/13/19 10/13/19 10/13/19 Range/Units 20:15 17:02 17:02 WBC (4.0-10.5) K/mm3 RBC (4.1-5.4) M/mm3 Hgb (12.0-16.0) gm/dl Hct (35-47) % MCV (78-100) fl MCH (26-32) pg MCHC (32-36) g/dl RDW (11.5-14.0) % Plt Count (150-450) K/mm3 MPV (7.5-11.0) fl Gran % (36.0-66.0) % Eos # (Auto) (0-0.5) Absolute Lymphs (auto) (1.0-4.6) Absolute Monos (auto) (0.0-1.3) Lymphocytes % (24.0-44.0) % Monocytes % (0.0-12.0) % Eosinophils % (0.00-5.0) % Basophils % (0.0-0.4) % Absolute Granulocytes (1.4-6.9) Basophils # (0-0.4) PT 11.6 (9.95-12.35) SECONDS INR 1.03 (0.8-3.0) D-Dimer 621 H* (215-500) ng/mL Sodium (137-145) mmol/L Potassium (3.5-5.1) mmol/L Chloride (98-107) mmol/L Carbon Dioxide (22-30) mmol/L Anion Gap (5-15) MEQ/L BUN (7-17) mg/dL Creatinine (0.52-1.04) mg/dL Estimated GFR ML/MIN Glucose (74-106) mg/dL Calcium (8.4-10.2) mg/dL Total Bilirubin (0.2-1.3) mg/dL AST (14-36) U/L ALT (0-35) U/L Alkaline Phosphatase (38-126) U/L Troponin I < 0.012 < 0.012 (0.000-0.034) ng/mL NT-Pro-B Natriuret Pep (0-900) pg/mL Serum Total Protein (6.3-8.2) g/dL Albumin (3.5-5.0) g/dL 10/13/19 10/13/19 Range/Units 17:02 17:02 WBC 11.1 H (4.0-10.5) K/mm3 RBC 4.57 (4.1-5.4) M/mm3 Hgb 14.5 (12.0-16.0) gm/dl Hct 43.4 (35-47) % MCV 95.0 (78-100) fl MCH 31.7 (26-32) pg MCHC 33.4 (32-36) g/dl RDW 13.0 (11.5-14.0) % Plt Count 323 (150-450) K/mm3 MPV 10.6 (7.5-11.0) fl Gran % 49.9 (36.0-66.0) % Eos # (Auto) 0.27 (0-0.5) Absolute Lymphs (auto) 4.40 (1.0-4.6) Absolute Monos (auto) 0.83 (0.0-1.3) Lymphocytes % 39.8 (24.0-44.0) % Monocytes % 7.5 (0.0-12.0) % Eosinophils % 2.4 (0.00-5.0) % Basophils % 0.4 (0.0-0.4) % Absolute Granulocytes 5.51 (1.4-6.9) Basophils # 0.04 (0-0.4) PT (9.95-12.35) SECONDS INR (0.8-3.0) D-Dimer (215-500) ng/mL Sodium 140 (137-145) mmol/L Potassium 3.2 L (3.5-5.1) mmol/L Chloride 103 (98-107) mmol/L Carbon Dioxide 27 (22-30) mmol/L Anion Gap 12.9 (5-15) MEQ/L BUN 13 (7-17) mg/dL Creatinine 1.03 (0.52-1.04) mg/dL Estimated GFR 59.8 ML/MIN Glucose 130 H (74-106) mg/dL Calcium 9.7 (8.4-10.2) mg/dL Total Bilirubin 0.40 (0.2-1.3) mg/dL AST 140 H (14-36) U/L ALT 186 H (0-35) U/L Alkaline Phosphatase 125 (38-126) U/L Troponin I (0.000-0.034) ng/mL NT-Pro-B Natriuret Pep 374 (0-900) pg/mL Serum Total Protein 9.2 H (6.3-8.2) g/dL Albumin 4.9 (3.5-5.0) g/dL - Progress Progress: improved, re-examined Air Movement: good Progress Note: 10/13/19 21:10 Patient's chest x-ray shows no acute process. The CTA of her chest reveals no pulmonary emboli. There are findings suggestive of both emphysema and pulmonary fibrosis. The patient states that she has no chest pain. She is not short of breath. Patient states that she does not want to be admitted or transferred. Patient states that her blood pressure is high all the time. Her systolic blood pressures typically runs over 170. Patient states she is feeling much better and wants to be discharged to home. We will discharge her to home with instructions to continue Benadryl and I will write a prescription for prednisone. The patient returned from her CAT scan of the chest with IV contrast complaining of some itching and there was a mild rash present on her back. After dosing of Benadryl intravenously and methylprednisolone intravenously, the rash has resolved Blood Culture(s) Obtained: No Antibiotics given: No Counseled pt/family regarding: lab results, diagnosis, need for follow-up, rad results - Departure Departure Disposition: Home Clinical Impression: Chest pain, Hypertensive urgency Condition: Stable Critical Care Time: Yes Critical Care Time(excluding separately billable procedures): Critical 30-74 mins Referrals: MANFRED TANNER MD [Primary Care Provider] - Additional Instructions: Take your medication as prescribed. Take Benadryl 25 mg [id number] 3 times a day for the next 4 days if there is itching and rash present. Fill the prednisone prescription if there is persistent rash and itching. Follow-up with your prescribing physician on October 15. At that time make arrangements for a follow-up appointment. Return to the emergency room if symptoms recur. Prescriptions: Prednisone 10 mg [Deltasone 10 mg] 10 mg PO TID #12 tablet
[2019-10-13] MEDS ORDERED: MORPHINE SULFATE 4 MG INJ IV ONE ×2 (17:05→18:32)
[2019-10-13] MEDS ORDERED: BABY ASPIRIN 81 MG CHEW PO ONE (17:05)
[2019-10-13] MEDS ORDERED: Zofran 4 MG/2 ML VIAL IV ONE (17:05)
[2019-10-13] MEDS ORDERED: Nitrostat 0.4 MG (ED) SL ONE ×2 (17:05→17:28)
[2019-10-13] MEDS ORDERED: Sodium Chloride 0.9% 1000 ML 1,000 ML IV SCH (17:15)
[2019-10-13] MEDS ORDERED: BABY ASPIRIN 81 MG CHEW ONE (17:28)
[2019-10-13] MEDS ORDERED: Zofran 4 MG/2 ML VIAL ONE (17:28)
[2019-10-13] MEDS ORDERED: Sodium Chloride 0.9% 1000 ML 1,000 ML ONE (17:29)
[2019-10-13] MEDS ORDERED: MORPHINE SULFATE 4 MG INJ ONE ×2 (17:29→18:38)
[2019-10-13 18:03] LABS: Absolute Neutrophil Ct (ANC) 5.51 (1.4-6.9); BASOPHIL % 0.4 % (0.0-0.4); Basophil (Absolute #) 0.04 (0-0.4); Eosinophil % 2.4 % (0.00-5.0); Eosinophil (Absolute #) 0.27 (0-0.5); Hematocrit 43.4 % (35-47); Hemoglobin 14.5 gm/dl (12.0-16.0); Lymphocytes % 39.8 % (24.0-44.0); Mean Corpuscular Hemoglobin 31.7 pg (26-32); Mean Corpuscular Hgb Concent. 33.4 g/dl (32-36); Mean Platelet Volume 10.6 fl (7.5-11.0); Monocyte (Absolute #) 0.83 (0.0-1.3); Monocytes % 7.5 % (0.0-12.0); Neutrophil % 49.9 % (36.0-66.0); Platelet Count 323 K/mm3 (150-450); Red Blood Count 4.57 M/mm3 (4.1-5.4); White Blood Count 11.1 K/mm3 (4.0-10.5)
[2019-10-13 18:06] LABS: INR 1.03 (0.8-3.0); PROTIME 11.6 SECONDS (9.95-12.35)
[2019-10-13 18:13] LABS: ALBUMIN 4.9 g/dL (3.5-5.0); ANION GAP 12.9 MEQ/L (5-15); BILIRUBIN,TOTAL 0.4 mg/dL (0.2-1.3); Calcium 9.7 mg/dL (8.4-10.2); Creatinine 1 1.03 mg/dL (0.52-1.04); Potassium 3.2 mmol/L (3.5-5.1); Total Protein 9.2 g/dL (6.3-8.2)
[2019-10-13] MEDS ORDERED: APRESOLINE 20 MG/ML INJ IV ONE ×2 (18:36→19:54)
[2019-10-13] MEDS ORDERED: APRESOLINE 20 MG/ML INJ ONE ×2 (18:38→20:00)
[2019-10-13] MEDS ORDERED: Klor Con 10 MEQ PO ONE ×2 (19:21→19:24)
[2019-10-13] MEDS ORDERED: BENADRYL 50 MG/ML IV ONE (19:28)
[2019-10-13] MEDS ORDERED: solu-MEDROL 125 MG IV ONE (19:29)
[2019-10-13] MEDS ORDERED: solu-MEDROL 125 MG ONE (19:31)
[2019-10-13] MEDS ORDERED: BENADRYL 50 MG/ML ONE (19:31)
[2019-10-13] MEDS ORDERED: Ativan 2 MG/1 ML VIAL IV ONE (19:57)
[2019-10-13] MEDS ORDERED: Ativan 2 MG/1 ML VIAL ONE (20:00)
[2019-10-13 21:10] VITALS: BP 155/93; PULSE 80; O2SAT 96
--- NOTE | 2019-10-14 08:03 | XRAY ---
Indication: Chest pain, left arm pain, and short of breath. Comparison: March 23, 2019. Portable chest remains hyperinflated and clear. Heart is not enlarged. Bony thorax intact. No new/acute findings.
--- NOTE | 2019-10-14 08:03 | XRAY ---
Indication: Chest pain, left arm pain, short of breath, and elevated d-dimer. Multiple contiguous axial images obtained through the chest using 80 cc Isovue 370 contrast and PE protocol. Comparison: February 05, 2010. There is good opacification of the pulmonary arteries to include the lobar and segmental branches. Again no filling defect or pulmonary embolus. Heart is not enlarged. Aorta is normal in course and caliber. No pathologic mediastinal/hilar lymphadenopathy. Examination of the lung parenchyma again demonstrates moderate pulmonary emphysema greatest in both upper lobes. There are again diffuse peripheral cystic changes/honeycombing. Moderate bilateral dependent atelectasis. No suspicious pulmonary mass, infiltrate, or effusion. Bony thorax intact. Limited upper abdomen demonstrates a few left renal cysts, largest 1.5 cm. Impression: 1. Again negative for pulmonary embolus. No acute cardiopulmonary abnormalities. 2. Stable pulmonary emphysema and peripheral cystic changes/honeycombing. 3. Incidental left renal cysts. Comment: Preliminary interpretation was made by [facility]. No critical discrepancy.
== END 2019-10-13 21:21 | disposition home or self-care (01) ==
LOC: ED 16:57
DX: I16.0 Hypertensive urgency (principal)
CPT/HCPCS: 36000; 36415; 71045; 71260; 80053; 83880; 84484; 85025; 85379; 85610; 93005; 93041; 94760; 96374; 96375; 96376; 99285; 99291; J0360; J1200; J2060; J2270; J2405; J2930; A9270-GY

== ENCOUNTER 2020-01-08 16:48 | Emergency (ER) | payer OTHER ==
[2020-01-08] MEDS ORDERED: Zofran 4 MG/2 ML VIAL IV ONE (17:01)
[2020-01-08] MEDS ORDERED: MORPHINE SULFATE 4 MG INJ IV ONE (17:01)
[2020-01-08] MEDS ORDERED: PROTONIX 40 MG IV IV ONE ×2 (17:01→17:47)
[2020-01-08] MEDS ORDERED: Sodium Chloride 0.9% 1000 ML 1,000 ML IV STA (17:01)
--- NOTE | 2020-01-08 17:07 | ERPHSYRPT ---
- History of Present Illness Time Seen by Provider: 01/08/20 17:00 Historian: patient, EMS Exam Limitations: no limitations Physician History: 54 years old female with history of hypertension, referral vascular disease with multiple stenting, tobacco abuse, COPD presented in the ER with chief complaint of upper abdominal pain off and on for almost 1 month but for the last couple of days is progressively worsening, moderate to severe intensity, dull aching sharp in nature without any radiation, associated with nausea/dry heaving and multiple episodes of nonprojectile, nonbilious vomiting with no hematemesis. She does have history of constipation and last bowel movement was 5 days ago. Denies any fever or chills. Denies any previous abdominal surgeries. On EMS arrival patient was in severe pain, given 100 of fentanyl and currently her pain is somewhat better. Timing/Duration: yesterday, constant, gradual onset, worse Activities at Onset: rest Quality: sharpness, stabbing Abdominal Pain Onset Location: RUQ, LUQ, epigastric, periumbilical Pain Radiation: no radiation Severity of Pain-Max: severe Severity of Pain-Current: moderate Modifying Factors: Improves With: analgesics Associated Symptoms: heartburn, loss of appetite, nausea, vomiting, No diarrhea , No fever/chills Previous symptoms: no prior history Allergies/Adverse Reactions: gabapentin [From Neurontin] Allergy (Intermediate, Verified 10/13/19 17:00) Rash Penicillins Adverse Reaction (Intermediate, Verified 10/13/19 17:00) Nausea and Vomiting Home Medications: Albuterol 8 gm Mdi Hfa [Ventolin Hfa MDI] 18 gm IH Q4H 09/16/16 [History] raNITIdine HCL [Ranitidine HCl] 150 mg PO DAILY 10/20/16 [History] Amlodipine Besylate 10 mg PO DAILY 03/23/19 [History] Atorvastatin Calcium [Lipitor] 20 mg PO DAILY 03/23/19 [History] Clonidine HCl 0.1 mg [Catapres 0.1 MG] 1 tab PO BID 10/13/19 [History] Clopidogrel Bisulfate 75 mg [PLAVIX 75 MG Tablet] 1 tab PO DAILY 10/13/19 [History] Pregabalin [Lyrica 75 mg Cap] 75 mg PO BID 10/13/19 [History] Hx Tetanus, Diphtheria Vaccination/Date Given: Yes Hx Influenza Vaccination/Date Given: No Hx Pneumococcal Vaccination/Date Given: No - Review of Systems Constitutional: No Symptoms Eyes: No Symptoms Ears, Nose, & Throat: No Symptoms Respiratory: No Symptoms Cardiac: No Symptoms Abdominal/Gastrointestinal: Abdominal Pain, Nausea, Vomiting Genitourinary Symptoms: No Symptoms Musculoskeletal: No Symptoms Skin: No Symptoms Neurological: No Symptoms Psychological: No Symptoms Endocrine: No Symptoms Hematologic/Lymphatic: No Symptoms Immunological/Allergic: No Symptoms - Past Medical History Pertinent Past Medical History: Yes Neurological History: No Pertinent History ENT History: No Pertinent History Cardiac History: Hypertension Respiratory History: Asthma Endocrine Medical History: No Pertinent History Musculoskeletal History: No Pertinent History GI Medical History: No Pertinent History History: No Pertinent History Psycho-Social History: Anxiety, Depression Female Reproductive Disorders: No Pertinent History - Past Surgical History Past Surgical History: Yes Neuro Surgical History: No Pertinent History Cardiac: No Pertinent History Respiratory: No Pertinent History Gastrointestinal: No Pertinent History Genitourinary: No Pertinent History Musculoskeletal: Orthopedic Surgery Female Surgical History: Hysterectomy, Other Other Surgical History: exploratory lap prior to hysterectomy, cervical/neck disc surgery twice - Social History Smoking Status: Current every day smoker How long have you smoked: 15yrs Exposure to second hand smoke: No Drug Use: none Patient Lives Alone: No - Nursing Vital Signs Nursing Vital Signs: Initial Vital Signs Temperature 97.9 F 01/08/20 16:57 Pulse Rate 80 01/08/20 16:57 Respiratory Rate 19 01/08/20 16:57 Blood Pressure 198/108 01/08/20 16:57 O2 Sat by Pulse Oximetry 99 01/08/20 16:57 Pain Scale Pain Intensity 8 - Physical Exam General Appearance: no apparent distress Eye Exam: eyes nml inspection Ears, Nose, Throat Exam: normal ENT inspection, pharyngeal erythema Neck Exam: normal inspection, supple, full range of motion Respiratory Exam: normal breath sounds, lungs clear, No chest tenderness Cardiovascular Exam: regular rate/rhythm, normal heart sounds Gastrointestinal/Abdomen Exam: soft, tenderness, guarding (Upper abdomen), No normal bowel sounds Back Exam: normal inspection, normal range of motion Extremity Exam: normal inspection, normal range of motion, pelvis stable Neurologic Exam: alert, oriented x 3, cooperative Skin Exam: normal color SpO2 Interpretation: normal O2 Delivery: Room Air - Course Nursing assessment & vital signs reviewed: Yes Ordered Tests: Active Orders 24 hr Category Date Time Status EKG-ER Only STAT Care 01/08/20 17:01 Active IV Insertion STAT Care 01/08/20 17:01 Active NPO (ED) STAT Care 01/08/20 17:01 Active ABDOMEN AND PELVIS W CONTRAST [CT] Stat Exams 01/08/20 17:02 Taken AMYLASE Stat Lab 01/08/20 17:45 Completed CBC W DIFF Stat Lab 01/08/20 17:45 Completed CMP Stat Lab 01/08/20 17:45 Completed CULTURE,URINE Stat Lab 01/08/20 19:19 Received LIPASE Stat Lab 01/08/20 17:45 Completed Lactic Acid Stat Lab 01/08/20 17:38 Completed TROPONIN Q3H Lab 01/08/20 17:51 Completed TROPONIN Q3H Lab 01/08/20 20:31 Received TROPONIN Q3H Lab 01/08/20 23:15 Ordered TROPONIN Q3H Lab 01/09/20 02:15 Ordered TROPONIN Q3H Lab 01/09/20 05:15 Ordered UA W/RFX UR CULTURE Stat Lab 01/08/20 19:19 Completed Medication Summary Discontinued Medications Generic Name Dose Route Start Last Admin Trade Name Freq PRN Reason Stop Dose Admin Al Hydrox/Mg Hydrox/Simethicone Confirm 01/08/20 20:43 Maalox Es 30 Ml Unit Dose Administered 01/08/20 20:44 Dose 30 ml .ROUTE .STK-MED ONE Ciprofloxacin 500 mg 01/08/20 20:59 01/08/20 21:01 Cipro 500 Mg PO 01/08/20 21:00 500 mg STAT ONE Administration Sodium Chloride 1,000 mls @ 999 mls/hr 01/08/20 17:01 01/08/20 18:54 Sodium Chloride 0.9% 1000 Ml IV 01/08/20 18:01 Infused .Q1H1M STA Infusion Sodium Chloride Confirm 01/08/20 17:48 Sodium Chloride 0.9% 1000 Ml Administered 01/08/20 17:49 Dose 1,000 mls @ ud .ROUTE .STK-MED ONE Lidocaine HCl Confirm 01/08/20 20:43 Xylocaine Hcl Viscous * Administered 01/08/20 20:44 Dose 15 ml .ROUTE .STK-MED ONE Magnesium Hydroxide 45 ml 01/08/20 20:33 01/08/20 20:45 Gi Cocktail 45 Ml (Maalox/Lidocaine) PO 01/08/20 20:34 45 ml STAT ONE Administration Morphine Sulfate 4 mg 01/08/20 17:01 01/08/20 17:52 Morphine Sulfate 4 Mg Inj IV 01/08/20 17:02 4 mg STAT ONE Administration Morphine Sulfate Confirm 01/08/20 17:48 Morphine Sulfate 4 Mg Inj Administered 01/08/20 17:49 Dose 4 mg .ROUTE .STK-MED ONE Ondansetron HCl 4 mg 01/08/20 17:01 01/08/20 17:53 Zofran 4 Mg/2 Ml Vial IV 01/08/20 17:02 4 mg STAT ONE Administration Ondansetron HCl Confirm 01/08/20 17:47 Zofran 4 Mg/2 Ml Vial Administered 01/08/20 17:48 Dose 4 mg .ROUTE .STK-MED ONE Pantoprazole Sodium 40 mg 01/08/20 17:01 01/08/20 17:52 Protonix 40 Mg Iv IV 01/08/20 17:02 40 mg STAT ONE Administration Pantoprazole Sodium Confirm 01/08/20 17:47 Protonix 40 Mg Iv Administered 01/08/20 17:48 Dose 40 mg IV .STK-MED ONE Potassium Chloride 40 meq 01/08/20 20:27 01/08/20 20:45 Klor Con 10 Meq PO 01/08/20 20:28 40 meq STAT ONE Administration Potassium Chloride Confirm 01/08/20 20:42 Klor Con 10 Meq Administered 01/08/20 20:43 Dose 40 meq PO .STK-MED ONE Lab/Rad Data: Laboratory Result Diagrams 01/08/20 17:45 01/08/20 17:45 Laboratory Results 01/08/20 01/08/20 01/08/20 Range/Units 19:19 17:51 17:45 WBC (4.0-10.5) K/mm3 RBC (4.1-5.4) M/mm3 Hgb (12.0-16.0) gm/dl Hct (35-47) % MCV (78-100) fl MCH (26-32) pg MCHC (32-36) g/dl RDW (11.5-14.0) % Plt Count (150-450) K/mm3 MPV (7.5-11.0) fl Gran % (36.0-66.0) % Eos # (Auto) (0-0.5) Absolute Lymphs (auto) (1.0-4.6) Absolute Monos (auto) (0.0-1.3) Lymphocytes % (24.0-44.0) % Monocytes % (0.0-12.0) % Eosinophils % (0.00-5.0) % Basophils % (0.0-0.4) % Absolute Granulocytes (1.4-6.9) Basophils # (0-0.4) Sodium 136 L (137-145) mmol/L Potassium 3.0 L (3.5-5.1) mmol/L Chloride 99 (98-107) mmol/L Carbon Dioxide 24 (22-30) mmol/L Anion Gap 15.4 H (5-15) MEQ/L BUN 12 (7-17) mg/dL Creatinine 0.90 (0.52-1.04) mg/dL Estimated GFR > 60.0 ML/MIN Glucose 163 H (74-106) mg/dL Lactic Acid (0.4-2.0) Calcium 9.3 (8.4-10.2) mg/dL Total Bilirubin 0.80 (0.2-1.3) mg/dL AST 24 (14-36) U/L ALT 9 (0-35) U/L Alkaline Phosphatase 118 (38-126) U/L Troponin I < 0.012 (0.000-0.034) ng/mL Serum Total Protein 8.4 H (6.3-8.2) g/dL Albumin 4.5 (3.5-5.0) g/dL Amylase 77 (30-110) U/L Lipase 23 (23-300) U/L Urine Color YELLOW (YELLOW) Urine Appearance CLEAR (CLEAR) Urine pH 7.0 (5-6) Ur Specific [place] 1.006 (1.005-1.025) Urine Protein 100 (Negative) Urine Ketones TRACE (NEGATIVE) Urine Blood NEGATIVE (0-5) Buster/ul Urine Nitrite NEGATIVE (NEGATIVE) Urine Bilirubin NEGATIVE (NEGATIVE) Urine Urobilinogen NEGATIVE (0-1) mg/dL Ur Leukocyte Esterase MODERATE (NEGATIVE) Urine WBC (Auto) 26-50 (0-5) /HPF Urine RBC (Auto) 0-2 (0-2) /HPF U Epithel Cells (Auto) NONE (FEW) /HPF Urine Bacteria (Auto) RARE (NEGATIVE) /HPF Urine Culture Reflexed YES (NO) Urine Glucose NEGATIVE (NEGATIVE) mg/dL 01/08/20 01/08/20 Range/Units 17:45 17:38 WBC 15.2 H (4.0-10.5) K/mm3 RBC 4.21 (4.1-5.4) M/mm3 Hgb 13.4 (12.0-16.0) gm/dl Hct 38.5 (35-47) % MCV 91.4 (78-100) fl MCH 31.8 (26-32) pg MCHC 34.8 (32-36) g/dl RDW 12.0 (11.5-14.0) % Plt Count 284 (150-450) K/mm3 MPV 10.3 (7.5-11.0) fl Gran % 81.2 H (36.0-66.0) % Eos # (Auto) 0.03 (0-0.5) Absolute Lymphs (auto) 1.76 (1.0-4.6) Absolute Monos (auto) 1.02 (0.0-1.3) Lymphocytes % 11.6 L (24.0-44.0) % Monocytes % 6.7 (0.0-12.0) % Eosinophils % 0.2 (0.00-5.0) % Basophils % 0.3 (0.0-0.4) % Absolute Granulocytes 12.34 H (1.4-6.9) Basophils # 0.05 (0-0.4) Sodium (137-145) mmol/L Potassium (3.5-5.1) mmol/L Chloride (98-107) mmol/L Carbon Dioxide (22-30) mmol/L Anion Gap (5-15) MEQ/L BUN (7-17) mg/dL Creatinine (0.52-1.04) mg/dL Estimated GFR ML/MIN Glucose (74-106) mg/dL Lactic Acid 1.1 (0.4-2.0) Calcium (8.4-10.2) mg/dL Total Bilirubin (0.2-1.3) mg/dL AST (14-36) U/L ALT (0-35) U/L Alkaline Phosphatase (38-126) U/L Troponin I (0.000-0.034) ng/mL Serum Total Protein (6.3-8.2) g/dL Albumin (3.5-5.0) g/dL Amylase (30-110) U/L Lipase (23-300) U/L Urine Color (YELLOW) Urine Appearance (CLEAR) Urine pH (5-6) Ur Specific [place] (1.005-1.025) Urine Protein (Negative) Urine Ketones (NEGATIVE) Urine Blood (0-5) Buster/ul Urine Nitrite (NEGATIVE) Urine Bilirubin (NEGATIVE) Urine Urobilinogen (0-1) mg/dL Ur Leukocyte Esterase (NEGATIVE) Urine WBC (Auto) (0-5) /HPF Urine RBC (Auto) (0-2) /HPF U Epithel Cells (Auto) (FEW) /HPF Urine Bacteria (Auto) (NEGATIVE) /HPF Urine Culture Reflexed (NO) Urine Glucose (NEGATIVE) mg/dL - Progress Progress: improved, pain not gone completely, re-examined Progress Note: 01/08/20 20:28 54 years old is evaluated for upper abdominal pain and vomiting. She is given IV fluid and pain medication, on reevaluation patient is feeling much better. I have also given her Protonix as well. She has a white count of 15 and mildly low potassium, otherwise work-up is grossly unremarkable. This could be secondary to multiple episodes of vomiting. Patient did not vomit while in the ER. I have obtained CT with contrast which showed some element of gastritis. I would start her on Protonix and Carafate, recommended outpatient follow-up with GI with possible scope. Recommended not taking ibuprofen. Discussed signs symptoms of worsening needing return to ER which he seems understanding. Stable for discharge. Counseled pt/family regarding: lab results, diagnosis, need for follow-up, rad results, smoking cessation - Departure Departure Disposition: Home Clinical Impression: Hypokalemia Gastritis Qualifiers: Gastritis type: superficial Chronicity: acute Gastritis bleeding: presence of bleeding unspecified Qualified Code(s): K29.00 - Acute gastritis without bleeding UTI (urinary tract infection) Qualifiers: Urinary tract infection type: site unspecified Hematuria presence: without hematuria Qualified Code(s): N39.0 - Urinary tract infection, site not specified Condition: Stable Critical Care Time: Yes Critical Care Time(excluding separately billable procedures): Critical 30-74 mins Referrals: MANFRED TANNER MD [Primary Care Provider] - (1-2 days for re evaluation) JANA SALAZAR MD [NON-STAFF PHY W/O PRIVILEGES] - Follow Up with PCP/3 days Instructions: Acute Abdomen (Belly Pain), Urinary Tract Infection, Adult (DC) Additional Instructions: Do not smoke, do not take ibuprofen. No alcohol. Take Tylenol as needed. Follow-up with primary care/GI for reevaluation. Return to ER for any worsening. Prescriptions: Ciprofloxacin [Cipro 500 MG] 500 mg PO BID #10 tablet Ondansetron HCl [Zofran] 4 mg PO TID PRN #10 tablet PRN Reason: Nausea/Vomiting PANTOPRAZOLE 40 mg Tablet [Protonix 40MG Tablet] 40 mg PO QAM 30 Days tab Sucralfate 1 gm [Carafate 1 GM] 1 g PO ACHS #60 tablet
[2020-01-08] MEDS ORDERED: Zofran 4 MG/2 ML VIAL ONE (17:47)
[2020-01-08] MEDS ORDERED: MORPHINE SULFATE 4 MG INJ ONE (17:48)
[2020-01-08] MEDS ORDERED: Sodium Chloride 0.9% 1000 ML 1,000 ML ONE (17:48)
[2020-01-08 17:51] LABS: Absolute Neutrophil Ct (ANC) 12.34 (1.4-6.9); BASOPHIL % 0.3 % (0.0-0.4); Basophil (Absolute #) 0.05 (0-0.4); Eosinophil % 0.2 % (0.00-5.0); Eosinophil (Absolute #) 0.03 (0-0.5); Hematocrit 38.5 % (35-47); Hemoglobin 13.4 gm/dl (12.0-16.0); Lymphocyte (Absolute #) 1.76 (1.0-4.6); Lymphocytes % 11.6 % (24.0-44.0); Mean Cell Volume 91.4 fl (78-100); Mean Corpuscular Hemoglobin 31.8 pg (26-32); Mean Corpuscular Hgb Concent. 34.8 g/dl (32-36); Mean Platelet Volume 10.3 fl (7.5-11.0); Monocyte (Absolute #) 1.02 (0.0-1.3); Monocytes % 6.7 % (0.0-12.0); Neutrophil % 81.2 % (36.0-66.0); Platelet Count 284 K/mm3 (150-450); Red Blood Count 4.21 M/mm3 (4.1-5.4); White Blood Count 15.2 K/mm3 (4.0-10.5)
[2020-01-08 17:55] LABS: ALBUMIN 4.5 g/dL (3.5-5.0); ALKALINE PHOSPHATASE 118 U/L (38-126); AMYLASE 77 U/L (30-110); ANION GAP 15.4 MEQ/L (5-15); BLOOD UREA NITROGEN 12 mg/dL (7-17); CHLORIDE 99 mmol/L (98-107); Calcium 9.3 mg/dL (8.4-10.2); Carbon Dioxide 24 mmol/L (22-30); Glucose 163 mg/dL (74-106); LIPASE 23 U/L (23-300); SGOT/AST 24 U/L (14-36); SGPT/ALT 9 U/L (0-35); SODIUM 136 mmol/L (137-145); Total Protein 8.4 g/dL (6.3-8.2)
[2020-01-08 19:29] LABS: Appearance CLEAR (CLEAR); Bacteria RARE /HPF (NEGATIVE); Bilirubin NEGATIVE (NEGATIVE); Blood NEGATIVE Ery/ul (0-5); Glucose NEGATIVE (NEGATIVE); Ketones TRACE (NEGATIVE); Leukocyte Esterase MODERATE (NEGATIVE); Nitrite NEGATIVE (NEGATIVE); Protein,Urine Dip 100 (Negative); RBC 0-2 /HPF (0-2); Specific Gravity 1.006 (1.005-1.025); Urobilinogen NEGATIVE mg/dL (0-1); WBC 26-50 /HPF (0-5)
[2020-01-08] MEDS ORDERED: Klor Con 10 MEQ PO ONE ×2 (20:27→20:42)
[2020-01-08] MEDS ORDERED: GI COCKTAIL 45 ML (Maalox/Lidocaine) PO ONE (20:33)
[2020-01-08] MEDS ORDERED: MAALOX ES 30 ML UNIT DOSE ONE (20:43)
[2020-01-08] MEDS ORDERED: XYLOCAINE HCl Viscous ONE (20:43)
[2020-01-08] MEDS ORDERED: Cipro 500 MG PO ONE (20:59)
[2020-01-08] MEDS ORDERED: Cipro 500 MG ONE (21:00)
[2020-01-08 21:15] VITALS: BP 165/98; PULSE 105; O2SAT 98
--- NOTE | 2020-01-09 09:17 | XRAY ---
Indication: Abdomen pain. Nausea and vomiting. Multiple contiguous axial images obtained through the abdomen and pelvis using 80 cc Isovue 370 contrast only. Comparison: February 01, 2015. Lung bases again demonstrates mild bilateral bronchiectasis, posterior peripheral cystic changes, and minimal dependent atelectasis. Left lung bases demonstrates at least 3 new indeterminant subpleural noncalcified nodules, largest 5.5 mm. Right lung base demonstrates at least 2 new indeterminant subpleural noncalcified nodules, largest 4 mm. No infiltrate or effusion. Heart is not enlarged. Noncontrasted stomach and bowel loops appear nonobstructed. Mid body of the stomach demonstrates new mild wall thickening up to 1.5 cm reasonably explained by incomplete distention. Underlying mass not completely excluded. Normal appendix. No free fluid/air. Both kidneys enhance and excrete. Left kidney demonstrates 3 cortical cysts, largest 1.5 cm in the upper pole not seen on previous noncontrast exam. Again previous hysterectomy. Right lobe of the liver demonstrates new wedge-shaped focus of heterogeneous hypoattenuation on the portal phase with no corresponding abnormality on delayed imaging, either transient perfusion versus giant hemangioma. No focal solid/cystic hepatic lesion or organomegaly. Remaining gallbladder, pancreas, spleen, adrenal glands, kidneys, ureters, and bladder appear unremarkable. There remains scattered aortoiliac calcifications without AAA. 2 left renal arteries demonstrates new stent grafts. A few new prominent periaortic lymph nodes, largest 1.2 x 1.5 cm just inferior to the left renal arteries. Osseous structures intact again with mild lumbar degenerative changes. Impression: 1. Mid gastric wall thickening, incomplete distention versus mass. Endoscopy may yield further information. 2. New wedge-shaped hepatic heterogeneous hypoattenuation only seen on portal phase, either transient perfusion versus giant hemangioma. Finding is new with respect to CT PE study October 13, 2019 and likely favors transient perfusion. 3. New bilateral indeterminant lung base noncalcified nodules. Findings are new with respect to CT PE study October 13, 2019. 4. A few new prominent periaortic nodes possibly reactive with malignancy not completely excluded. 5. Incidental new left renal cysts and left renal artery stent grafts. 6. Stable bibasilar bronchiectasis and subpleural cystic changes. Comment: Preliminary interpretation was made by [facility]. No critical discrepancy.
== END 2020-01-08 21:14 | disposition home or self-care (01) ==
LOC: ED 16:48
DX: K29.00 Acute gastritis without bleeding (principal); N39.0 Urinary tract infection, site not specified
CPT/HCPCS: 36000; 36415; 74177; 80053; 81001; 82150; 83605; 83690; 84484; 85025; 87086; 93005; 96360; 96374; 96375; 99284; 99291; J2270; J2405; A9270-GY

== ENCOUNTER 2020-08-05 14:48 | Observation (INO) | payer OTHER ==
--- NOTE | 2020-08-05 15:31 | XRAY ---
Indication: Chest pain. Comparison: October 13, 2019. Portable chest unchanged again hyperinflated and clear. Heart is not enlarged. Bony thorax intact. No new/acute findings.
[2020-08-05 16:01] LABS: Hematocrit 39.8 % (35-47); Hemoglobin 13.8 gm/dl (12.0-16.0); Mean Cell Volume 90.2 fl (78-100); Mean Corpuscular Hemoglobin 31.3 pg (26-32); Mean Corpuscular Hgb Concent. 34.7 g/dl (32-36); Platelet Count 393 K/mm3 (150-450); Red Blood Count 4.41 M/mm3 (4.1-5.4); Red Cell Distribution Width 12.4 % (11.5-14.0); White Blood Count 24.4 K/mm3 (4.0-10.5)
[2020-08-05 16:02] LABS: ALBUMIN 4.9 g/dL (3.5-5.0); ANION GAP 13.7 MEQ/L (5-15); BILIRUBIN,TOTAL 0.4 mg/dL (0.2-1.3); Calcium 9.7 mg/dL (8.4-10.2); Creatinine 1 1.66 mg/dL (0.52-1.04); EST GLOMERULAR FILTRATION RATE 34.5 ML/MIN; MAGNESIUM 1.5 mg/dL (1.6-2.3); Potassium 3.1 mmol/L (3.5-5.1); Total Protein 9.4 g/dL (6.3-8.2)
[2020-08-05] MEDS ORDERED: SUBLIMAZE 100 MCG/2 ML IV ONE ×2 (16:32→22:07)
[2020-08-05] MEDS ORDERED: SUBLIMAZE 100 MCG/2 ML ONE ×2 (16:41→22:10)
[2020-08-05] MEDS ORDERED: Klor Con 10 MEQ PO ONE ×2 (17:41→18:16)
--- NOTE | 2020-08-05 17:41 | ERPHSYRPT ---
- History of Present Illness Time Seen by Provider: 08/05/20 14:58 Source: patient Exam Limitations: no limitations Patient Subjective Stated Complaint: pt here for vomited for 3 days, and pain to chest started today, fever 101 off and on last fever 2 days ago, she went to [employer] to try to eat today and couldnt so she came to er , Triage Nursing Assessment: pt arrived per ambulance, alert, resp easy, skin w/d/p. face mask applied, abd soft, pt states she feels better after pain and nausea meds, Physician History: Patient is a 54-year-old female presents to our ED via EMS for evaluation of chest pain started today. Patient received fentanyl in route which improved her symptoms. Patient admits to subjective fever. Epigastric pain and chest pain. Patient states she has been vomiting for 3 days. He is unable to tolerate p.o. chest pain described as a substernal ache that is constant. No specific worseni ng or improving factors. Patient states she has a history of esophageal stricture requiring dilation. No trauma. No diarrhea. Symptoms are mild to moderate in intensity. No specific worsening or improving factors. Patient voices no other complaints or concerns at this time. Timing/Duration: today Allergies/Adverse Reactions: gabapentin [From Neurontin] Allergy (Intermediate, Verified 08/05/20 15:01) Rash Penicillins Adverse Reaction (Intermediate, Verified 08/05/20 15:01) Nausea and Vomiting Home Medications: Albuterol 8 gm Mdi Hfa [Ventolin Hfa MDI] 18 gm IH Q4H 09/16/16 [History] raNITIdine HCL [Ranitidine HCl] 150 mg PO DAILY 10/20/16 [History] Amlodipine Besylate 10 mg PO DAILY 03/23/19 [History] Atorvastatin Calcium [Lipitor] 20 mg PO DAILY 03/23/19 [History] Clonidine HCl 0.1 mg [Catapres 0.1 MG] 1 tab PO BID 10/13/19 [History] Clopidogrel Bisulfate 75 mg [PLAVIX 75 MG Tablet] 1 tab PO DAILY 10/13/19 [History] Pregabalin [Lyrica 75 mg Cap] 75 mg PO BID 10/13/19 [History] Hx Tetanus, Diphtheria Vaccination/Date Given: Yes Hx Influenza Vaccination/Date Given: No Hx Pneumococcal Vaccination/Date Given: No Immunizations Up to Date: Yes Travel Risk - International Travel Have you traveled outside of the country in past 3 weeks: No - Coronavirus Screening Are you exhibiting any of the following symptoms?: Yes Symptoms: Vomiting/Diarrhea Close contact with a COVID-19 positive Pt in past 14-21 Days: No - Review of Systems Constitutional: No Symptoms, No Fever, No Chills Eyes: No Symptoms Ears, Nose, & Throat: No Symptoms Respiratory: No Symptoms, No Cough, No Dyspnea Cardiac: No Symptoms, No Chest Pain, No Edema, No Syncope Abdominal/Gastrointestinal: No Symptoms, No Abdominal Pain, No Nausea, No Vomiting, No Diarrhea Genitourinary Symptoms: No Symptoms, No Dysuria Musculoskeletal: No Symptoms, No Back Pain, No Neck Pain Skin: No Symptoms, No Rash Neurological: No Symptoms, No Dizziness, No Focal Weakness, No Sensory Changes Psychological: No Symptoms Endocrine: No Symptoms Hematologic/Lymphatic: No Symptoms Immunological/Allergic: No Symptoms All Other Systems: Reviewed and Negative - Past Medical History Pertinent Past Medical History: Yes Neurological History: No Pertinent History ENT History: No Pertinent History Cardiac History: High Cholesterol, Hypertension Respiratory History: Asthma Endocrine Medical History: No Pertinent History Musculoskeletal History: No Pertinent History GI Medical History: GERD History: No Pertinent History Psycho-Social History: Anxiety, Depression Female Reproductive Disorders: No Pertinent History - Past Surgical History Past Surgical History: Yes Neuro Surgical History: No Pertinent History Cardiac: No Pertinent History, Cardiac Catheterization Respiratory: No Pertinent History Gastrointestinal: No Pertinent History Genitourinary: No Pertinent History Musculoskeletal: Orthopedic Surgery Female Surgical History: Hysterectomy, Section, Other Other Surgical History: exploratory lap prior to hysterectomy, cervical/neck di sc surgery twice - Social History Smoking Status: Current every day smoker How long have you smoked: 15yrs Exposure to second hand smoke: No Drug Use: marijuana Patient Lives Alone: Yes - Female History Hx Last Menstrual Period: post Hx Now: No - Nursing Vital Signs Nursing Vital Signs: Initial Vital Signs Temperature 98.3 F 08/05/20 14:52 Pulse Rate 108 H 08/05/20 14:52 Respiratory Rate 20 08/05/20 14:52 Blood Pressure 137/82 08/05/20 14:52 O2 Sat by Pulse Oximetry 96 08/05/20 14:52 Pain Scale Pain Intensity 4 - Physical Exam General Appearance: no apparent distress, alert Eye Exam: PERRL/EOMI, eyes nml inspection Ears, Nose, Throat Exam: normal ENT inspection, TMs normal, pharynx normal, moist mucous membranes, other Neck Exam: normal inspection, non-tender, supple, full range of motion Respiratory Exam: normal breath sounds, lungs clear, No respiratory distress Cardiovascular Exam: regular rate/rhythm, normal heart sounds, normal peripheral pulses Gastrointestinal/Abdomen Exam: soft, normal bowel sounds, No tenderness, No mass Back Exam: normal inspection, normal range of motion, No CVA tenderness, No vertebral tenderness Extremity Exam: normal inspection, normal range of motion, pelvis stable Neurologic Exam: alert, oriented x 3, cooperative, normal mood/affect, nml cerebellar function, nml station & gait, sensation nml, No motor deficits Skin Exam: normal color, warm, dry, No rash Lymphatic Exam: No adenopathy SpO2 Interpretation: normal SpO2: 98 O2 Delivery: Room Air - Course Nursing assessment & vital signs reviewed: Yes - Radiology Exams Chest X-ray Interpretation: Teleradiologist Report (Hyperinflated lungs. Otherwise no acute findings.) Ordered Tests: Active Orders 24 hr Category Date Time Status Bindery Chief STAT Care 08/05/20 15:12 Active EKG-ER Only STAT Care 08/05/20 15:10 Active IV Insertion STAT Care 08/05/20 15:10 Active Pulse Oximetry (ED) STAT Care 08/05/20 15:10 Active ABDOMEN AND PELVIS W/0 CONTRAS [CT] Stat Exams 08/05/20 17:47 Taken CHEST 1 VIEW (PORTABLE) Stat Exams 08/05/20 15:12 Completed BLOOD CULTURE Stat Lab 08/05/20 18:07 Received CBC W DIFF Stat Lab 08/05/20 15:40 Completed CMP Stat Lab 08/05/20 15:40 Completed CULTURE,URINE Stat Lab 08/05/20 20:19 Received MAGNESIUM Stat Lab 08/05/20 15:40 Completed Manual Differential NC Stat Lab 08/05/20 15:40 Completed TROPONIN Q3H Lab 08/05/20 15:40 Completed TROPONIN Q3H Lab 08/05/20 18:00 Completed TROPONIN Q3H Lab 08/06/20 00:15 Ordered TROPONIN Q3H Lab 08/06/20 03:15 Ordered UA W/RFX UR CULTURE Stat Lab 08/05/20 20:04 Completed Transfer Order Routine Transfer 08/05/20 Ordered Medication Summary Generic Name Dose Route Start Last Admin Trade Name Mirta PRN Reason Stop Dose Admin Magnesium Sulfate/Dextrose 100 mls @ 100 mls/hr 08/05/20 17:45 08/05/20 20:05 Magnesium 1 Gm / 100 Ml D5w IV 08/05/20 19:44 100 mls/hr Q1H BARBARA Administration Pantoprazole Sodium 80 mg/ 500 mls @ 50 mls/hr 08/05/20 21:00 Sodium Chloride IV 09/04/20 20:59 .Q10H BARBARA Discontinued Medications Generic Name Dose Route Start Last Admin Trade Name Mirta PRN Reason Stop Dose Admin Diphenhydramine HCl 50 mg 08/05/20 20:11 08/05/20 20:13 Benadryl 50 Mg/Ml IV 08/05/20 20:12 50 mg STAT ONE Administration Diphenhydramine HCl Confirm 08/05/20 20:13 Benadryl 50 Mg/Ml Administered 08/05/20 20:14 Dose 50 mg .ROUTE .STK-MED ONE Fentanyl Citrate 25 mcg 08/05/20 16:32 08/05/20 16:44 Sublimaze 100 Mcg/2 Ml IV 08/05/20 16:33 25 mcg STAT ONE Administration Fentanyl Citrate Confirm 08/05/20 16:41 Sublimaze 100 Mcg/2 Ml Administered 08/05/20 16:42 Dose 100 mcg .ROUTE .STK-MED ONE Hydromorphone HCl 0.5 mg 08/05/20 18:39 08/05/20 18:40 Hydromorphone 1 Mg/Ml Injection IV 08/05/20 18:40 0.5 mg STAT ONE Administration Hydromorphone HCl Confirm 08/05/20 18:41 Hydromorphone 1 Mg/Ml Injection Administered 08/05/20 18:42 Dose 1 mg .ROUTE .STK-MED ONE Sodium Chloride 1,000 mls @ 999 mls/hr 08/05/20 17:42 08/05/20 18:20 Sodium Chloride 0.9% 1000 Ml IV 08/05/20 18:42 999 mls/hr .Q1H1M STA Administration Levofloxacin/Dextrose 500 mg in 100 mls @ 100 mls/hr 08/05/20 17:56 08/05/20 20:07 Levofloxacin 500mg/100ml D5w IV 08/05/20 18:55 100 ml/hr STAT STA 100 mls/hr Administration Metronidazole 500 mg in 100 mls @ 200 mls/hr 08/05/20 17:56 08/05/20 18:35 Flagyl 500 Mg Ivpb IV 08/05/20 18:25 200 mls/hr STAT STA 200 mls/hr Administration Sodium Chloride Confirm 08/05/20 18:17 Sodium Chloride 0.9% 1000 Ml Administered 08/05/20 18:18 Dose 1,000 mls @ ud .ROUTE .STK-MED ONE Metronidazole Confirm 08/05/20 18:33 Flagyl 500 Mg Ivpb Administered 08/05/20 18:34 Dose 500 mg in 100 mls @ ud IV .STK-MED ONE Levofloxacin/Dextrose Confirm 08/05/20 19:22 Levofloxacin 500mg/100ml D5w Administered 08/05/20 19:23 Dose 500 mg in 100 mls @ ud IV .STK-MED ONE Potassium Chloride 40 meq 08/05/20 17:41 08/05/20 18:29 Klor Con 10 Meq PO 08/05/20 17:42 40 meq STAT ONE Administration Potassium Chloride Confirm 08/05/20 18:16 Klor Con 10 Meq Administered 08/05/20 18:17 Dose 40 meq PO .STK-MED ONE Lab/Rad Data: Laboratory Result Diagrams 08/05/20 15:40 08/05/20 15:40 Laboratory Results 08/05/20 08/05/20 08/05/20 Range/Units 20:04 18:00 15:40 WBC (4.0-10.5) K/mm3 RBC (4.1-5.4) M/mm3 Hgb (12.0-16.0) gm/dl Hct (35-47) % MCV (78-100) fl MCH (26-32) pg MCHC (32-36) g/dl RDW (11.5-14.0) % Plt Count (150-450) K/mm3 MPV (7.5-11.0) fl Segmented Neutrophils (36.0-66.0) % Lymphocytes (Manual) (24-44) % Monocytes (Manual) (0.0-12.0) % Platelet Estimate (NORMAL) RBC Morphology Sodium (137-145) mmol/L Potassium (3.5-5.1) mmol/L Chloride (98-107) mmol/L Carbon Dioxide (22-30) mmol/L Anion Gap (5-15) MEQ/L BUN (7-17) mg/dL Creatinine (0.52-1.04) mg/dL Estimated GFR ML/MIN Glucose (74-106) mg/dL Calcium (8.4-10.2) mg/dL Magnesium (1.6-2.3) mg/dL Total Bilirubin (0.2-1.3) mg/dL AST (14-36) U/L ALT (0-35) U/L Alkaline Phosphatase (38-126) U/L Troponin I < 0.012 < 0.012 (0.000-0.034) ng/mL Serum Total Protein (6.3-8.2) g/dL Albumin (3.5-5.0) g/dL Urine Color YELLOW (YELLOW) Urine Appearance SLIGHTLY CLOUDY (CLEAR) Urine pH 5.0 (5-6) Ur Specific [place] 1.012 (1.005-1.025) Urine Protein 100 (Negative) Urine Ketones NEGATIVE (NEGATIVE) Urine Blood NEGATIVE (0-5) Buster/ul Urine Nitrite NEGATIVE (NEGATIVE) Urine Bilirubin NEGATIVE (NEGATIVE) Urine Urobilinogen NEGATIVE (0-1) mg/dL Ur Leukocyte Esterase NEGATIVE (NEGATIVE) Urine WBC (Auto) 3-5 (0-5) /HPF Urine RBC (Auto) 0-2 (0-2) /HPF U Hyaline Cast (Auto) 0-2 (0-2) /LPF U Epithel Cells (Auto) NONE (FEW) /HPF Urine Bacteria (Auto) NONE (NEGATIVE) /HPF Urine Mucus (Auto) SLIGHT (NEGATIVE) /HPF Urine Culture Reflexed ORDERED SEPARATELY (NO) Urine Glucose NEGATIVE (NEGATIVE) mg/dL 08/05/20 08/05/20 Range/Units 15:40 15:40 WBC 24.4 H (4.0-10.5) K/mm3 RBC 4.41 (4.1-5.4) M/mm3 Hgb 13.8 (12.0-16.0) gm/dl Hct 39.8 (35-47) % MCV 90.2 (78-100) fl MCH 31.3 (26-32) pg MCHC 34.7 (32-36) g/dl RDW 12.4 (11.5-14.0) % Plt Count 393 (150-450) K/mm3 MPV 10.0 (7.5-11.0) fl Segmented Neutrophils 65 (36.0-66.0) % Lymphocytes (Manual) 29 (24-44) % Monocytes (Manual) 6 (0.0-12.0) % Platelet Estimate NORMAL (NORMAL) RBC Morphology NORMAL Sodium 133 L (137-145) mmol/L Potassium 3.1 L (3.5-5.1) mmol/L Chloride 95 L (98-107) mmol/L Carbon Dioxide 27 (22-30) mmol/L Anion Gap 13.7 (5-15) MEQ/L BUN 20 H (7-17) mg/dL Creatinine 1.66 H (0.52-1.04) mg/dL Estimated GFR 34.5 ML/MIN Glucose 171 H (74-106) mg/dL Calcium 9.7 (8.4-10.2) mg/dL Magnesium 1.5 L (1.6-2.3) mg/dL Total Bilirubin 0.40 (0.2-1.3) mg/dL AST 22 (14-36) U/L ALT 18 (0-35) U/L Alkaline Phosphatase 131 H (38-126) U/L Troponin I (0.000-0.034) ng/mL Serum Total Protein 9.4 H (6.3-8.2) g/dL Albumin 4.9 (3.5-5.0) g/dL Urine Color (YELLOW) Urine Appearance (CLEAR) Urine pH (5-6) Ur Specific [place] (1.005-1.025) Urine Protein (Negative) Urine Ketones (NEGATIVE) Urine Blood (0-5) Buster/ul Urine Nitrite (NEGATIVE) Urine Bilirubin (NEGATIVE) Urine Urobilinogen (0-1) mg/dL Ur Leukocyte Esterase (NEGATIVE) Urine WBC (Auto) (0-5) /HPF Urine RBC (Auto) (0-2) /HPF U Hyaline Cast (Auto) (0-2) /LPF U Epithel Cells (Auto) (FEW) /HPF Urine Bacteria (Auto) (NEGATIVE) /HPF Urine Mucus (Auto) (NEGATIVE) /HPF Urine Culture Reflexed (NO) Urine Glucose (NEGATIVE) mg/dL - Progress Progress: improved Progress Note: 08/05/20 21:13 Patient reassessed. Work-up reveals electrolyte abnormalities, elevated white blood cell count at 24.4. Potassium 0.1, magnesium 1.5. Antibiotics ordered infused due to elevated white blood cell count and subjective fever. No obvious source of infection identified at this time. CT scan shows a normal appendix. There is a new small hiatal hernia. And a very distended urinary bladder. Patient received a urinary cath and approximately 800 cc of urine was expressed. UA negative for UTI. Case discussed with Dr. Pendleton who accepts admission to observation. We will keep patient n.p.o. Protonix administered. Plan of care discussed with patient. She agrees to admission at [facility] for further evaluation and treatment. 08/05/20 21:13 08/05/20 21:14 08/05/20 21:[address] Maricruz Will see patient in: hospital (observation) Counseled pt/family regarding: lab results, diagnosis, rad results - Departure Departure Disposition: Home Clinical Impression: Leukocytosis, Hypokalemia, Acute renal injury, Hyponatremia, Lung nodules Condition: Stable Critical Care Time: No Referrals: MANFRED TANNER MD [Primary Care Provider] -
[2020-08-05] MEDS ORDERED: Sodium Chloride 0.9% 1000 ML 1,000 ML IV STA (17:42)
[2020-08-05] MEDS ORDERED: FLAGYL 500 MG IVPB 500 MG/100 ML BAG IV STA (17:56)
[2020-08-05] MEDS ORDERED: Levofloxacin 500MG/100ML D5W 500 MG/100 ML BAG IV STA (17:56)
[2020-08-05] MEDS ORDERED: Sodium Chloride 0.9% 1000 ML 1,000 ML ONE (18:17)
[2020-08-05] MEDS ORDERED: Magnesium 1 Gm / 100 Ml D5W*** 100 ML IV ONE ×2 (18:17→19:21)
[2020-08-05] MEDS: Magnesium 1 Gm / 100 Ml D5W*** 100 ML IV SCH ×2 (18:29→20:05)
[2020-08-05] MEDS ORDERED: FLAGYL 500 MG IVPB 500 MG/100 ML BAG IV ONE (18:33)
[2020-08-05] MEDS ORDERED: Hydromorphone 1 mg/ml Injection IV ONE (18:39)
[2020-08-05] MEDS ORDERED: Hydromorphone 1 mg/ml Injection ONE (18:41)
[2020-08-05] MEDS ORDERED: Levofloxacin 500MG/100ML D5W 500 MG/100 ML BAG IV ONE (19:22)
[2020-08-05 19:35] LABS: Lymphocytes 29 % (24-44); Monocyte 6 % (0.0-12.0); Neutrophils 65 % (36.0-66.0); Platelet Estimate NORMAL (NORMAL); Total Cells Counted 100
[2020-08-05] MEDS ORDERED: BENADRYL 50 MG/ML IV ONE (20:11)
[2020-08-05] MEDS ORDERED: BENADRYL 50 MG/ML ONE (20:13)
[2020-08-05 20:27] LABS: Appearance SLIGHTLY CLOUDY (CLEAR); Bilirubin NEGATIVE (NEGATIVE); Blood NEGATIVE Ery/ul (0-5); Glucose NEGATIVE (NEGATIVE); Hyaline Casts 0-2 /LPF (0-2); Ketones NEGATIVE (NEGATIVE); Leukocyte Esterase NEGATIVE (NEGATIVE); Mucus SLIGHT /HPF (NEGATIVE); Nitrite NEGATIVE (NEGATIVE); Protein,Urine Dip 100 (Negative); RBC 0-2 /HPF (0-2); Specific Gravity 1.012 (1.005-1.025); Urobilinogen NEGATIVE mg/dL (0-1)
[2020-08-05] MEDS ORDERED: PROTONIX 40 MG IV IV ONE ×2 (22:10→22:31)
[2020-08-05] MEDS ORDERED: Sodium Chloride 0.9% 500 ML 500 ML IV ONE (22:16)
[2020-08-05] MEDS: PROTONIX 40 MG IV*** 80 MG in Sodium Chloride 0.9% 500 ML 500 ML IV SCH (22:21)
[2020-08-05] MEDS ORDERED: Sodium Chloride 0.9% 1000 ML 1,000 ML IV SCH (22:57)
[2020-08-06] MEDS: Hydromorphone 1 mg/ml Injection IV PRN ×3 (01:10→09:12)
[2020-08-06 04:52] LABS: Hematocrit 37.8 % (35-47); Hemoglobin 12.7 gm/dl (12.0-16.0); Mean Cell Volume 92.6 fl (78-100); Mean Corpuscular Hemoglobin 31.1 pg (26-32); Mean Corpuscular Hgb Concent. 33.6 g/dl (32-36); Platelet Count 313 K/mm3 (150-450); Red Blood Count 4.08 M/mm3 (4.1-5.4); Red Cell Distribution Width 12.6 % (11.5-14.0); White Blood Count 16.1 K/mm3 (4.0-10.5)
[2020-08-06 05:42] LABS: ALBUMIN 4.2 g/dL (3.5-5.0); ANION GAP 11.7 MEQ/L (5-15); BILIRUBIN,TOTAL 0.7 mg/dL (0.2-1.3); Calcium 8.6 mg/dL (8.4-10.2); Creatinine 1 1.37 mg/dL (0.52-1.04); MAGNESIUM 2.4 mg/dL (1.6-2.3); Potassium 3.8 mmol/L (3.5-5.1); Total Protein 8.1 g/dL (6.3-8.2)
[2020-08-06 06:02] LABS: Lymphocytes 37 % (24-44); Monocyte 2 % (0.0-12.0); Neutrophils 61 % (36.0-66.0); Platelet Estimate NORMAL (NORMAL); Total Cells Counted 100
--- NOTE | 2020-08-06 08:50 | XRAY ---
Indication: Abdomen pain and nausea 5 days. Multiple contiguous axial images obtained through the abdomen and pelvis without contrast Comparison: January 08, 2020. Lung bases again demonstrates pulmonary emphysema with mild bronchiectasis, minimal dependent atelectasis, posterior peripheral cystic changes, and tiny right posterior gutter calcified granuloma. There is also stable indeterminant noncalcified micronodules bilaterally. Heart is not enlarged. New small hiatal hernia. Noncontrasted stomach and bowel loops appear nonobstructed. Normal air-filled appendix. Again previous hysterectomy. No free fluid/air. Urinary bladder is now markedly distended either outlet obstruction versus neurogenic bladder. Left kidney remains smaller compared to contralateral again presumed vascular in etiology as evidenced by left renal artery stent grafts. Remaining liver, gallbladder, pancreas, spleen, adrenal glands, kidneys, ureters, and bladder are unremarkable for noncontrast exam. Stable scattered aortoiliac calcifications without AAA. Osseous structures intact again with mild lower lumbar degenerative changes. Impression: 1. New markedly distended urinary bladder. Rule out outlet obstruction versus neurogenic bladder. 2. New small hiatal hernia. 3. Stable left renal atrophy with left renal artery stent grafts. 4. Stable bibasilar pulmonary emphysema, bronchiectasis, and subpleural cystic changes.
[2020-08-06] MEDS: PROTONIX 40 MG IV*** 80 MG in Sodium Chloride 0.9% 500 ML 500 ML IV SCH ×2 (09:12→20:04)
--- NOTE | 2020-08-06 09:14 | PCM.HP ---
History of Present Illness - Chief Complaint Chief Complaint: N&V epigastric pain History of Present Illness: is a 54 year old female pt of Dr. Siu in [place] who came to ER with 1 week of abd pain, with 3d of vomiting, fevers, and chest pain. She was admitted with leukocytosis (WBC to 24), hypokalemia, acute renal injury, and hyponatremia. Given levaquin x 1 in ER. Her WBC are 16.1 this morning. Currently she is having 9/10 periumbilical/epigastric pain radiating substerna lly. Has trouble swallowing foods. Hasn't eaten for 9d she said, and not tolerating cigarettes or Mt Dew. Pt c/o dizziness. Had syncope with vagal maneuver. Pt had 800 mL urine in her bladder when she was catheterized in ER. Has been having urinary incontinence. Has never had a urinary catheter. C/o recurrent UTIs. Has L renal artery stents in place. Has not returned to see Dr. Michael since then (placed 5yr ago)./ Pt states her weight dropped from 160 lb to 101 lb in 3 months. Had colonoscopy years ago with polyps. - Review of Systems Constitutional: Fever Respiratory: Short Of Breath (better with albuterol) Cardiac: Chest Pain (better with albuterol) Abdominal/Gastrointestinal: Abdominal Pain, Nausea, Vomiting, Other (c/o tissue bulging out of rectum intermittently) Genitourinary Symptoms: Hematuria, Incontinence, Urinary Retention Skin: Other (recurrent abscess R suprapubic area) Medications & Allergies Home Medications: Home Medication List Albuterol 8 gm Mdi Hfa [Ventolin Hfa MDI] 18 gm IH Q4H 09/16/16 [History Confirmed 08/05/20] raNITIdine HCL [Ranitidine HCl] 150 mg PO DAILY 10/20/16 [History Confirmed 08/06/20] Amlodipine Besylate 10 mg PO DAILY 03/23/19 [History Confirmed 08/05/20] Atorvastatin Calcium [Lipitor] 20 mg PO DAILY 03/23/19 [History Confirmed 08/05/20] Clonidine HCl 0.1 mg [Catapres 0.1 MG] 1 tab PO BID 10/13/19 [History Confirmed 08/05/20] Clopidogrel Bisulfate 75 mg [PLAVIX 75 MG Tablet] 1 tab PO DAILY 10/13/19 [History Confirmed 08/05/20] Pregabalin [Lyrica 75 mg Cap] 75 mg PO BID 10/13/19 [History Confirmed ] Allergies/Adverse Reactions: Allergies Allergy/AdvReac Type Severity Reaction Status Date / Time gabapentin [From Neurontin] Allergy Intermediate Rash Verified 08/05/20 15:01 Penicillins AdvReac Intermediate Nausea and Verified 08/05/20 15:01 Vomiting - Past Medical History Past Medical History: Yes Neurological History: No Pertinent History ENT History: No Pertinent History Cardiac History: High Cholesterol, Hypertension Respiratory History: Asthma Endocrine Medical History: No Pertinent History Musculoskelatal History: No Pertinent History GI Medical History: GERD History: No Pertinent History Pyscho-Social History: Anxiety, Depression Reproductive Disorders: No Pertinent History - Female History Hx Last Menstrual Period: total hysterectomy Are you now?: No - Past Surgical History Past Surgical History: Yes Neuro Surgical History: No Pertinent History Cardiac History: No Pertinent History, Cardiac Catheterization Respiratory Surgery: No Pertinent History GI Surgical History: No Pertinent History Genitourinary Surgical Hx: No Pertinent History Musculskeletal Surgical Hx: Orthopedic Surgery Female Surgical History: Hysterectomy, Section, Other Other Surgical History: exploratory lap prior to hysterectomy, cervical/neck disc surgery twice - Social History Smoking Status: Current every day smoker How long have you smoked: 39 yers Exposure to second hand smoke: Yes Alcohol: None Drug Use: marijuana - Physical Exam Vital Signs: Vital Signs - 24 hr Temp Pulse Resp BP Pulse Ox 08/06/20 04:00 97.4 F 96 H 18 108/69 94 L 08/06/20 00:40 97.6 F 98 H 18 109/65 100 08/06/20 00:00 97.6 F 98 H 18 109/65 100 08/05/20 23:04 96 H 19 96/56 96 08/05/20 22:59 97.6 F 99 H 18 107/66 99 08/05/20 22:57 18 99 08/05/20 22:02 101 H 15 91/58 100 08/05/20 21:23 92 H 28 H 114/64 96 08/05/20 21:18 98 08/05/20 20:09 97 H 24 134/80 96 08/05/20 19:00 101 H 18 123/80 99 08/05/20 18:57 103 H 18 136/79 95 08/05/20 17:12 78 16 125/73 98 08/05/20 15:12 98 08/05/20 14:52 98.3 F 108 H 20 137/82 97 General Appearance: mild distress, alert Neurologic Exam: oriented x 3, cooperative Eye Exam: eyes nml inspection Ears, Nose, Throat Exam: moist mucous membranes Neck Exam: normal inspection Respiratory Exam: normal breath sounds, lungs clear, No crackles/rales, No rhonchi, No wheezing Cardiovascular Exam: regular rate/rhythm, normal heart sounds, No murmur Gastrointestinal/Abdomen Exam: soft, tenderness (diffuse, mild), No normal bowel sounds (hyperactive), No distention, No mass, No guarding, No rebound Extremity Exam: normal inspection, No pedal edema, No swelling Skin Exam: normal color, warm, dry, No rash Results - Labs Lab/Micro Results: Lab Results-Last 24 Hours 08/05/20 08/05/20 08/05/20 Range/Units 15:40 15:40 15:40 WBC 24.4 H (4.0-10.5) K/mm3 RBC 4.41 (4.1-5.4) M/mm3 Hgb 13.8 (12.0-16.0) gm/dl Hct 39.8 (35-47) % MCV 90.2 (78-100) fl MCH 31.3 (26-32) pg MCHC 34.7 (32-36) g/dl RDW 12.4 (11.5-14.0) % Plt Count 393 (150-450) K/mm3 MPV 10.0 (7.5-11.0) fl Segmented Neutrophils 65 (36.0-66.0) % Lymphocytes (Manual) 29 (24-44) % Monocytes (Manual) 6 (0.0-12.0) % Platelet Estimate NORMAL (NORMAL) RBC Morphology NORMAL Sodium 133 L (137-145) mmol/L Potassium 3.1 L (3.5-5.1) mmol/L Chloride 95 L (98-107) mmol/L Carbon Dioxide 27 (22-30) mmol/L Anion Gap 13.7 (5-15) MEQ/L BUN 20 H (7-17) mg/dL Creatinine 1.66 H (0.52-1.04) mg/dL Estimated GFR 34.5 ML/MIN Glucose 171 H (74-106) mg/dL Calcium 9.7 (8.4-10.2) mg/dL Magnesium 1.5 L (1.6-2.3) mg/dL Total Bilirubin 0.40 (0.2-1.3) mg/dL AST 22 (14-36) U/L ALT 18 (0-35) U/L Alkaline Phosphatase 131 H (38-126) U/L Troponin I < 0.012 (0.000-0.034) ng/mL Serum Total Protein 9.4 H (6.3-8.2) g/dL Albumin 4.9 (3.5-5.0) g/dL Urine Color (YELLOW) Urine Appearance (CLEAR) Urine pH (5-6) Ur Specific [place] (1.005-1.025) Urine Protein (Negative) Urine Ketones (NEGATIVE) Urine Blood (0-5) Buster/ul Urine Nitrite (NEGATIVE) Urine Bilirubin (NEGATIVE) Urine Urobilinogen (0-1) mg/dL Ur Leukocyte Esterase (NEGATIVE) Urine WBC (Auto) (0-5) /HPF Urine RBC (Auto) (0-2) /HPF U Hyaline Cast (Auto) (0-2) /LPF U Epithel Cells (Auto) (FEW) /HPF Urine Bacteria (Auto) (NEGATIVE) /HPF Urine Mucus (Auto) (NEGATIVE) /HPF Urine Culture Reflexed (NO) Urine Glucose (NEGATIVE) mg/dL 08/05/20 08/05/20 08/06/20 Range/Units 18:00 20:04 04:42 WBC 16.1 H (4.0-10.5) K/mm3 RBC 4.08 L (4.1-5.4) M/mm3 Hgb 12.7 (12.0-16.0) gm/dl Hct 37.8 (35-47) % MCV 92.6 (78-100) fl MCH 31.1 (26-32) pg MCHC 33.6 (32-36) g/dl RDW 12.6 (11.5-14.0) % Plt Count 313 (150-450) K/mm3 MPV 10.0 (7.5-11.0) fl Segmented Neutrophils 61 (36.0-66.0) % Lymphocytes (Manual) 37 (24-44) % Monocytes (Manual) 2 (0.0-12.0) % Platelet Estimate NORMAL (NORMAL) RBC Morphology NORMAL Sodium (137-145) mmol/L Potassium (3.5-5.1) mmol/L Chloride (98-107) mmol/L Carbon Dioxide (22-30) mmol/L Anion Gap (5-15) MEQ/L BUN (7-17) mg/dL Creatinine (0.52-1.04) mg/dL Estimated GFR ML/MIN Glucose (74-106) mg/dL Calcium (8.4-10.2) mg/dL Magnesium (1.6-2.3) mg/dL Total Bilirubin (0.2-1.3) mg/dL AST (14-36) U/L ALT (0-35) U/L Alkaline Phosphatase (38-126) U/L Troponin I < 0.012 (0.000-0.034) ng/mL Serum Total Protein (6.3-8.2) g/dL Albumin (3.5-5.0) g/dL Urine Color YELLOW (YELLOW) Urine Appearance SLIGHTLY CLOUDY (CLEAR) Urine pH 5.0 (5-6) Ur Specific [place] 1.012 (1.005-1.025) Urine Protein 100 (Negative) Urine Ketones NEGATIVE (NEGATIVE) Urine Blood NEGATIVE (0-5) Buster/ul Urine Nitrite NEGATIVE (NEGATIVE) Urine Bilirubin NEGATIVE (NEGATIVE) Urine Urobilinogen NEGATIVE (0-1) mg/dL Ur Leukocyte Esterase NEGATIVE (NEGATIVE) Urine WBC (Auto) 3-5 (0-5) /HPF Urine RBC (Auto) 0-2 (0-2) /HPF U Hyaline Cast (Auto) 0-2 (0-2) /LPF U Epithel Cells (Auto) NONE (FEW) /HPF Urine Bacteria (Auto) NONE (NEGATIVE) /HPF Urine Mucus (Auto) SLIGHT (NEGATIVE) /HPF Urine Culture Reflexed ORDERED SEPARATELY (NO) Urine Glucose NEGATIVE (NEGATIVE) mg/dL 08/06/20 Range/Units 04:42 WBC (4.0-10.5) K/mm3 RBC (4.1-5.4) M/mm3 Hgb (12.0-16.0) gm/dl Hct (35-47) % MCV (78-100) fl MCH (26-32) pg MCHC (32-36) g/dl RDW (11.5-14.0) % Plt Count (150-450) K/mm3 MPV (7.5-11.0) fl Segmented Neutrophils (36.0-66.0) % Lymphocytes (Manual) (24-44) % Monocytes (Manual) (0.0-12.0) % Platelet Estimate (NORMAL) RBC Morphology Sodium 133 L (137-145) mmol/L Potassium 3.8 D (3.5-5.1) mmol/L Chloride 100 (98-107) mmol/L Carbon Dioxide 25 (22-30) mmol/L Anion Gap 11.7 (5-15) MEQ/L BUN 15 (7-17) mg/dL Creatinine 1.37 H (0.52-1.04) mg/dL Estimated GFR 43.0 ML/MIN Glucose 112 H (74-106) mg/dL Calcium 8.6 (8.4-10.2) mg/dL Magnesium 2.4 H (1.6-2.3) mg/dL Total Bilirubin 0.70 (0.2-1.3) mg/dL AST 20 (14-36) U/L ALT 13 (0-35) U/L Alkaline Phosphatase 109 (38-126) U/L Troponin I (0.000-0.034) ng/mL Serum Total Protein 8.1 (6.3-8.2) g/dL Albumin 4.2 (3.5-5.0) g/dL Urine Color (YELLOW) Urine Appearance (CLEAR) Urine pH (5-6) Ur Specific [place] (1.005-1.025) Urine Protein (Negative) Urine Ketones (NEGATIVE) Urine Blood (0-5) Buster/ul Urine Nitrite (NEGATIVE) Urine Bilirubin (NEGATIVE) Urine Urobilinogen (0-1) mg/dL Ur Leukocyte Esterase (NEGATIVE) Urine WBC (Auto) (0-5) /HPF Urine RBC (Auto) (0-2) /HPF U Hyaline Cast (Auto) (0-2) /LPF U Epithel Cells (Auto) (FEW) /HPF Urine Bacteria (Auto) (NEGATIVE) /HPF Urine Mucus (Auto) (NEGATIVE) /HPF Urine Culture Reflexed (NO) Urine Glucose (NEGATIVE) mg/dL Microbiology 08/05/20 20:19 Urine Culture - Preliminary Urine, Catheterized NO GROWTH TO DATE - Radiology Impressions Radiology Exams & Impressions: Radiology Procedures Category Date Time Status ABDOMEN AND PELVIS W/0 CONTRAS [CT] Stat Exams 08/05/20 17:47 Completed CHEST 1 VIEW (PORTABLE) Stat Exams 08/05/20 15:12 Completed CHEST WITH CONTRAST [CT] Routine Exams 08/06/20 09:05 Ordered Assessment/Plan (1) Leukocytosis Current Visit: Yes Status: Acute Qualifiers: Hypereosinophilic syndrome type: idiopathic Code(s): D72.829 - ELEVATED WHITE BLOOD CELL COUNT, UNSPECIFIED (2) Abdominal pain Current Visit: Yes Status: Acute Qualifiers: Abdominal location: epigastric Qualified Code(s): R10.13 - Epigastric pain Assessment & Plan: Check amylase and lipase. Consult surgery for EGD, thank you. Add PPI IV for now. Code(s): R10.9 - UNSPECIFIED ABDOMINAL PAIN (3) Weight loss Current Visit: Yes Status: Chronic Assessment & Plan: Pt reports 60lb weight loss. Colonoscopy. CT chest. (4) Urinary retention Current Visit: Yes Status: Chronic Assessment & Plan: Will refer to urology outpatient; could be neurogenic bladder as she's been having incontinence as well. Will check bladder u/s, with reports of hematuria and in light of weight loss. Code(s): R33.9 - RETENTION OF URINE, UNSPECIFIED (5) Hematemesis/vomiting blood Current Visit: Yes Status: Acute Qualifiers: Nausea presence: with nausea Qualified Code(s): K92.0 - Hematemesis Assessment & Plan: reported by pt Code(s): K92.0 - HEMATEMESIS (6) Acute renal injury Current Visit: Yes Status: Acute Code(s): N17.9 - ACUTE KIDNEY FAILURE, UNSPECIFIED
[2020-08-06 09:55] LABS: AMYLASE 57 U/L (30-110); LIPASE 30 U/L (23-300)
[2020-08-06] MEDS: FLAGYL 500 MG IVPB 500 MG/100 ML BAG IV SCH ×3 (09:57→23:12)
[2020-08-06] MEDS: SUBLIMAZE 100 MCG/2 ML IV PRN ×3 (11:24→20:05)
[2020-08-06] MEDS ORDERED: Ventolin Hfa MDI IH SCH (11:30)
[2020-08-06] MEDS: Pepcid 20 MG PO SCH (13:29)
[2020-08-06] MEDS: ZOCOR 20MG PO SCH (13:29)
[2020-08-06] MEDS: LYRICA 75 MG CAP PO SCH ×2 (13:29→21:50)
[2020-08-06] MEDS: NORVASC 5 MG PO SCH (13:30)
[2020-08-06] MEDS: Catapres 0.1 MG PO SCH ×2 (13:30→21:50)
--- NOTE | 2020-08-06 14:28 | XRAY ---
Indication: Hematuria. Urinary retention. Two-dimensional ultrasound urinary bladder demonstrates normal distention with Mtz balloon catheter in situ. Bladder volume is 140 cc. No focal bladder mass or wall thickening. Impression: Negative urinary bladder sonogram with Mtz catheter in situ.
[2020-08-06] MEDS ORDERED: Spiriva 18 Mcg/Cap Inhaler IH ONE (14:38)
--- NOTE | 2020-08-06 14:49 | CONS ---
CONSULT DATE: 08/06/2020 HISTORY: A 54 year old female had some chronic lower abdominal aches and pains worse recently. She is also having increased dysphagia. She had prior dilatation in the past. It has been a while since she had a colonoscopy. Amylase and lipase are normal. She had a white count of [address] scan showed distended gallbladder. She had a small hiatal hernia. Otherwise, liver function tests were okay. PAST MEDICAL HISTORY: Chronic lung disease, chronic obstructive pulmonary disease and dysphagia in the past. She had history of smoking in the past. Hyperlipidemia, high cholesterol, hypertension, anxiety, depression, reflux. PAST SURGICAL HISTORY: She had dilatation in the past. She also had some renal stents placed in the past. section x2, hysterectomy. She had some SURVEYOR MINE exploration before previously. MEDICATIONS: She had been on Albuterol. Ranitidine, amlodipine, atorvastatin, clopidogrel, pregabalin. ALLERGIES: GABAPENTIN. PENICILLIN. FAMILY HISTORY: Negative in regards to this problem. SOCIAL HISTORY: Smoker. She has used marijuana in the past. REVIEW OF SYSTEMS: Fourteen systems reviewed. No chest pain or palpitations. Pertinent for as noted above, some lower abdominal pain, some dysphagia upper esophagus. Other systems negative or noncontributory as above and per preadmission assessment. PHYSICAL EXAMINATION: GENERAL: No acute distress. HEENT: Sclera nonicteric. NECK: No JVD. CHEST: Equal excursion, nonlabored breathing. CVS: Regular rate and rhythm. ABDOMEN: Soft, mild tenderness lower abdomen. No peritoneal signs. EXTREMITIES: No significant edema. NEURO: Alert, moving extremities symmetrically. No gross motor deficits. PSYCH: Appropriate mood and affect. IMPRESSION: Dysphagia as well as some lower abdominal pain unclear etiology. She may have had a little bit of weight loss in the past. She had some urinary problems in the past. Unclear etiology of her lower abdominal pain and may be urinary in etiology but feel she would benefit from upper endoscopy, possible dilatation regarding dysphagia and plan on colonoscopy to rule out any lower GI source. There does not appear to be any obvious acute diverticulitis on the CT scan to account for her symptoms. It may be more urinary but rule out colon source at the same time. Therefore general risk of bleeding or infection, risk of bowel injury or perforation possibly requiring further procedure, risk of ongoing morbidity, risk of missed or nondiagnosis or incomplete exam possibly requiring barium swallow, barium enema, other studies or procedures, general risk of anesthesia or sedation, risk of aspiration but not limited to. She agreed to the planned procedure and will proceed when OR time is available.
[2020-08-06] MEDS ORDERED: VENTOLIN COMMON CANISTER IH SCH (15:00)
[2020-08-06] MEDS ORDERED: DULCOLAX 5 MG PO SCH ×2 (15:30→19:00)
[2020-08-06] MEDS ORDERED: GAVILAX PO SCH (15:30)
[2020-08-06] MEDS ORDERED: Ativan 1 MG PO PRN (16:58)
[2020-08-06] MEDS: Zofran 4 MG/2 ML VIAL IV PRN (17:10)
[2020-08-06] MEDS ORDERED: Transderm Scop 1.5MG Patch TOP ONE (18:10)
[2020-08-06] MEDS ORDERED: Ativan 2 MG/1 ML VIAL IV PRN (18:11)
[2020-08-06] MEDS: PATIENT OWN MEDICATION IH SCH ×2 (19:38→23:35)
[2020-08-07] MEDS: SUBLIMAZE 100 MCG/2 ML IV PRN (00:57)
[2020-08-07] MEDS: Lactated Ringers 1,000 ML IV SCH ×2 (04:09→11:19)
[2020-08-07] MEDS: FLAGYL 500 MG IVPB 500 MG/100 ML BAG IV SCH (05:36)
[2020-08-07] MEDS: PATIENT OWN MEDICATION IH SCH ×3 (06:03→10:45)
[2020-08-07] MEDS ORDERED: DIPRIVAN 200 MG/20 ML IV ONE ×3 (06:03→06:39)
[2020-08-07 08:11] VITALS: O2SAT 96
[2020-08-07] MEDS: Zofran 4 MG/2 ML VIAL IV PRN (08:44)
[2020-08-07] MEDS ORDERED: TYLENOL 325 MG PO PRN (09:10)
--- NOTE | 2020-08-07 09:10 | PCM.NOTE ---
Date and Time: 08/07/20 0904 Subjective Assessment: patient continues to have some low abdominal pain, had egd with dilation and colonoscopy. Objective Exam General Appearance: no apparent distress, anxiety Skin Exam: normal color, warm, dry Respiratory Exam: normal breath sounds Cardiovascular Exam: regular rate/rhythm, normal heart sounds Gastrointestinal/Abdomen Exam: soft, No tenderness, No mass OBJECTIVE DATA Vital Signs: Vital Signs - 24 hr Temp Pulse Resp BP BP Pulse Ox 08/07/20 08:07 96 08/07/20 08:00 97.2 F 95 H 16 124/71 99 08/07/20 04:00 20 08/07/20 03:50 99.6 F 105 H 20 111/69 96 08/07/20 03:10 99.6 F 105 H 20 111/69 96 08/07/20 00:00 98.7 F 113 H 18 138/68 96 08/06/20 23:35 112 H 17 96 08/06/20 20:00 16 08/06/20 19:42 97.7 F 102 H 16 115/67 94 L 08/06/20 19:38 98 H 16 94 L 08/06/20 14:55 96 H 16 93 L 08/06/20 13:54 99.0 F 101 H 16 90/52 92 L 08/06/20 12:00 16 Pain Assessment - Last Documented Pain Intensity 6 Pain Scale Used FLACC Intake and Output: Intake & Output 08/04/20 08/05/20 08/06/20 08/07/20 11:59 11:59 11:59 11:59 Intake Total 266 2562 Output Total 3328 4225 Balance -6815 -6468 Weight 52.4 kg 52.4 kg Lab Results: Lab Results-Last 24 Hours 08/06/20 08/07/20 Range/Units 09:40 04:55 Magnesium 1.7 (1.6-2.3) mg/dL Amylase 57 (30-110) U/L Lipase 30 (23-300) U/L Radiology Exams: Radiology Procedures Category Date Time Status ABDOMEN AND PELVIS W/0 CONTRAS [CT] Stat Exams 08/05/20 17:47 Completed BLADDER [US] Routine Exams 08/06/20 10:00 Completed CHEST 1 VIEW (PORTABLE) Stat Exams 08/05/20 15:12 Completed Multi-Disciplinary Progress Notes: Multi-Disciplinary Progress Notes 08/07/20 08:04 Case Management Note by Jenae Mcleod S/W PATIENT THIS AM- SHE CONTINUES TO REFUSE ANY REFERRALS TO GET ASSISTANCE WITH FOOD AND OTHER NEEDS. PATIENT WAS GIVEN RESOURCES YEST. IN CASE SHE CHANGES HER MIND IN THE FUTURE. PATIENT HAS MEDICAID AND IF UNABLE TO FIND A RIDE HOME NURSING CAN CALL [facility] FOR HER A RIDE HOME THRU HER MEDICAID Initialized on 08/07/20 08:04 - END OF NOTE 08/06/20 09:35 Case Management Note by Jenae Mcleod WHEN S/W PATIENT SHE VOICED THAT AFTER RENT SHE CAN NOT AFFORD FOOD. SHE LIVES AT A [facility]. SHE REPORTS SHE REPLACES FOOD WITH [facility]. THIS NURSE OFFERED TO SEND A REFERRAL TO [facility] HOWEVER PATIENT THEN STATED THAT SHE DID NOT WANT ANY ASSISTANCE FROM ANY AGENCY THAT WOULD "WANT TO KNOW HER BUSINESS" INSINUATING HER INCOME. I NOTIFIED HER THAT THE MAJORITY OF SERVICES I COULD OFFER HER WOULD WANT TO KNOW HER INCOME TO ASSESS NEED- SHE VERIFIED UNDERSTANDING AND STATED SHE DID NOT WANT ANY HELP THEN. SHE STATED SHE DOESN'T LIKE TO DO NELY EITHER. SHE THEN STATED "I WOULD RATHER THAN DO NELY". PATIENT REPORTS THIS IS ALSO WHY SHE DOES NOT HAVE FOOD STAMPS. I ENCOURAGED HER TO ACCEPT HELP AND THAT THERE IS NO SHAME IN ACCEPTING HELP HOWEVER PATIENT ADAMANTLY AGAINST ANY SERVICES OFFERED. SHE STATED THAT SHE DOES NOT HAVE TRANSPORTATION EITHER. SHE WAS NOTIFIED THAT HER MEDICAID WILL PAY FOR MEDICAL TRANSPORTATION. SHE STATED "WELL YOU HAVE TO CALL 3-4 WEEKS AHEAD OF TIME". I RE-EDUCATED HER THAT IT JUST NEEDS TO BE SCHEDULED 2 DAYS IN ADVANCE. SHE VERIFIED UNDERSTANDING. SHE STATED THE [facility]OT[facility] HAS BED BUGS BUT NOT IN HER ROOM. SHE TREATS MONTHLY FOR THEM. I GAVE HER INFORMATION FOR [facility], TRANSPORTATION, AND FOOD GOYAL. 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 SHE VERIFIED UNDERSTANDING Initialized on 08/06/20 09:35 - END OF NOTE Assessment/Plan (1) Abdominal pain Current Visit: Yes Status: Acute Qualifiers: Abdominal location: epigastric Qualified Code(s): R10.13 - Epigastric pain Assessment & Plan: patient s/p egd with dilation, no obvious etiology of pain present. no source of infection, urine culture negative. will d/c antibiotics. advance diet per surgery order, patient has been consulted by discharge planning as she states she doesn't have money to buy food but only substitutes mountain dew for meals, assistance offered and information for food goyal but she refuses to give any financial information or accept "nely" so she is not open to assistance, she is alert, oriented and competent to make her own decisions. Code(s): R10.9 - UNSPECIFIED ABDOMINAL PAIN (2) Vomiting Current Visit: No Status: Acute Assessment & Plan: will advance diet Code(s): R11.10 - VOMITING, UNSPECIFIED
[2020-08-07 09:13] LABS: BASOPHIL % 0.3 % (0.0-0.4); Basophil (Absolute #) 0.04 (0-0.4); Eosinophil % 0.1 % (0.00-5.0); Eosinophil (Absolute #) 0.02 (0-0.5); Hematocrit 37.8 % (35-47); Hemoglobin 12.5 gm/dl (12.0-16.0); Lymphocyte (Absolute #) 3.07 (1.0-4.6); Lymphocytes % 21.1 % (24.0-44.0); Mean Cell Volume 93.8 fl (78-100); Mean Corpuscular Hgb Concent. 33.1 g/dl (32-36); Mean Platelet Volume 10.6 fl (7.5-11.0); Monocyte (Absolute #) 1.04 (0.0-1.3); Monocytes % 7.1 % (0.0-12.0); Neutrophil % 71.4 % (36.0-66.0); Platelet Count 318 K/mm3 (150-450); Red Blood Count 4.03 M/mm3 (4.1-5.4); Red Cell Distribution Width 12.5 % (11.5-14.0); White Blood Count 14.6 K/mm3 (4.0-10.5)
[2020-08-07 09:41] LABS: ALBUMIN 4.1 g/dL (3.5-5.0); ALKALINE PHOSPHATASE 118 U/L (38-126); ANION GAP 13.9 MEQ/L (5-15); BLOOD UREA NITROGEN 10 mg/dL (7-17); CHLORIDE 104 mmol/L (98-107); Calcium 8.5 mg/dL (8.4-10.2); Carbon Dioxide 21 mmol/L (22-30); Creatinine 1 0.99 mg/dL (0.52-1.04); EST GLOMERULAR FILTRATION RATE > 60.0 ML/MIN; Glucose 133 mg/dL (74-106); Potassium 3.7 mmol/L (3.5-5.1); SGOT/AST 22 U/L (14-36); SGPT/ALT 12 U/L (0-35); SODIUM 135 mmol/L (137-145); Total Protein 7.8 g/dL (6.3-8.2)
[2020-08-07] MEDS ORDERED: Spiriva 18 Mcg/Cap Inhaler IH SCH (10:00)
[2020-08-07] MEDS ORDERED: NON-FORMULARY ITEM (Ranitidine Hcl [Ranitidine Hcl] 150 MG) PO SCH (10:00)
[2020-08-07] MEDS ORDERED: NO ANTICOAGULANTS OR BLOOD THINNERS/ASPIRIN MC SCH (10:00)
[2020-08-07] MEDS ORDERED: NON-FORMULARY ITEM (Atorvastatin Calcium [Lipitor] 20 MG) PO SCH (10:00)
[2020-08-07] MEDS ORDERED: Protonix 40MG Tablet PO SCH (10:00)
--- NOTE | 2020-08-07 11:10 | OP ---
SURGERY DATE: 08/07/2020 SURGERY TIME: 06 PREOPERATIVE DIAGNOSIS: 1. DYSPHAGIA. 2. LOWER ABDOMEN PAIN. POSTOPERATIVE DIAGNOSIS: 1. VERY SLIGHT HIATAL HERNIA. 2. MINIMAL GASTRITIS. 3. SHORT SEGMENT DISTAL ESOPHAGITIS. 4. PROXIMAL ESOPHAGEAL NARROWING AND SPASM REQUIRING DILATATION. 5. COLON POLYPS. 6. FAIR BOWEL PREP. 7. MILD DIVERTICULOSIS. PROCEDURE: 1. Esophagogastroduodenoscopy with cold biopsy of antrum for H-pylori. 2. Cold biopsy distal esophagus to evaluate for esophagitis. 3. Proximal esophageal dilatation and symptomatic narrowing and spasm (size 20 balloon). 4. Colonoscopy to cecum with hot snare polypectomy small transverse colon polyp. 5. Hot biopsy small early rectal polyp vs hyperplastic lesion. 6. Random cold biopsy of colon to evaluate for microscopic colitis. SURGEON: Dr. Sunny Turk. ANESTHESIA: MAC. ESTIMATED BLOOD LOSS: Minimal. INDICATIONS: As noted above. Risks and benefits explained in detail, but not limited to. Consent obtained. DESCRIPTION OF PROCEDURE AND FINDINGS: The patient was taken to the endoscopy room. MAC anesthesia induced after official time-out and agreement of planned procedure. Bite block positioned. Video gastroscope passed down the oropharynx. There was a proximal esophageal narrowing and spasm. However, she denied any symptoms. There is no evidence of any gross mass or lesion to biopsy. The scope was able to be just passed through here, but give her symptoms, it was felt would benefit dilatation and then the procedure. The scope passed through the patent pylorus to the junction of the 2nd and 3rd portion of the duodenum. Duodenum grossly unremarkable. Proximal duodenum grossly unremarkable. The scope pulled back in the stomach. She had some mild gastric erythema. Cold biopsy was taken to evaluate for H-pylori. Good hemostasis noted. On retroflex, there was a very slight 0.5 cm slight hiatal hernia vs normal variation of the gastroesophageal junction. Good hemostasis noted. The scope pulled back. Gastroesophageal junction about 40 cm. There was a short segment of a cm or so of distal erosive esophagitis. Cold biopsy taken for evaluation. Good hemostasis noted. In the remainder of the esophagus, no gross mucosal lesions, but again, she had a proximal esophageal narrowing. It was felt this warranted dilatation. The scope passed back down in the stomach. The 20 balloon catheter carefully inserted and pulled back up to the proximal esophageal narrowing. Then, carefully inflated first stage for about 30-40 seconds, 2nd stage 45 seconds, final stage for 2 minutes. The balloon catheter was then released and withdrawn. The scope much more easily passed through this narrow area. There was no evidence of any full thickness issues or injuries secondary to dilatation. The scope was withdrawn. The patient tolerated this portion of the procedure. Attention was then turned to the colonoscopy. Digital rectal exam did not reveal any rectal masses. Did have some minimal internal hemorrhoids. Video colonoscope inserted and passed up through the tortuous sigmoid, descending, transverse, and ascending colon. With external pressure, the scope was passed around to the cecum. The appendiceal orifice and valve well visualized and photo documented. Prep overall was fair with some liquidy semi-solid stool scattered throughout the colon just slightly limiting the exam for very small lesions. This was suction irrigated as clear as possible. Her was 3. The scope was over the next 8 minutes sucking the liquidy stool out as necessary. There were no signs of any large polyps, masses, or obstructing lesions. She did have a small 3 mm polyp that was removed with hot snare polypectomy in the transverse colon. Good hemostasis noted. The scope pulled back. Some random cold biopsies were taken in the left colon to evaluate for microscopic colitis. There was no gross macroscopic colitis. She had small minimal to mild diverticulosis. Otherwise, the scope pulled back to the rectum. Small early polyp about 2 mm in size vs hyperplastic lesion was removed with hot biopsy forceps. Good hemostasis was noted. The scope was withdrawn. The patient tolerated the procedure well. There were no signs of any large polyps, masses, or obstructing lesions. There was question of whether her bladder issues was the source of her lower abdomen discomfort as there is no significant inflammatory changes on endoscopy. No family here to discuss any findings with, so will see her back in the office in a couple of weeks. Thank you for the consult.
[2020-08-07] MEDS: Pepcid 20 MG PO SCH (11:19)
[2020-08-07] MEDS: ZOCOR 20MG PO SCH (11:19)
[2020-08-07] MEDS: Catapres 0.1 MG PO SCH (11:19)
[2020-08-07] MEDS: NORVASC 5 MG PO SCH (11:19)
[2020-08-07] MEDS: LYRICA 75 MG CAP PO SCH (11:19)
[2020-08-07] MEDS: Ativan 0.5 MG PO PRN ×2 (12:29→20:40)
[2020-08-07] MEDS ORDERED: Lactated Ringers 1,000 ML IV ONE (13:59)
[2020-08-07] MEDS: NORCO 5/325 MG PO PRN ×2 (14:24→20:17)
[2020-08-07] MEDS ORDERED: PATIENT OWN MEDICATION IH PRN (14:45)
--- NOTE | 2020-08-07 16:39 | PCM.DS ---
Discharge Summary Date of Admission: 08/05/20 22:54 Admitting Physician: BRANDON BARNARD Consults: Consults on Case 08/06/20 09:08 Consult Surgery ROUTINE Primary Care Provider: MANFRED TANNER MD Allergies Allergies gabapentin [From Neurontin] Allergy (Intermediate, Verified 08/05/20 15:01) Rash Penicillins Adverse Reaction (Intermediate, Verified 08/05/20 15:01) Nausea and Vomiting Hospital Summary - Hospital Course Hospital Course: patient was admitted with abdominal pain and vomiting, has had chronically and normally sees Dr najera at [facility], she complaints that she is losing weight but is not eating regularly because she can't afford to buy food and substitutes [facility] for meals. she has refused all forms of assistance offered in the regard. she had egd and colonoscopy by Dr Turk with dilation of esophagus, she is tolerating po at the time of discharge. elevated white count related to vomiting, improved following admission and hydration. no source of infection identified and pain is chronic and she does not require any other immediate surgical intervention. she had a distended bladder on ct scan, daigle was inserted with more than 800ml of urine emptied, she will go home with cath with instructions to f/u with urology - Vitals & Intake/Output Vital Signs: Vital Signs Temperature 98.6 F 08/07/20 16:00 Pulse Rate 99 H 08/07/20 16:00 Respiratory Rate 16 08/07/20 16:00 Blood Pressure 128/66 08/07/20 16:00 O2 Sat by Pulse Oximetry 96 08/07/20 16:00 Intake & Output: Intake & Output 08/05/20 08/06/20 08/07/20 08/08/20 11:59 11:59 11:59 11:59 Intake Total 266 2562 0 Output Total 1816 5617 Balance -5200 -3069 0 Weight 52.4 kg 52.4 kg - Lab Result Diagrams: 08/07/20 04:55 08/07/20 04:55 Lab Results-Last 24 Hrs: Lab Results-Last 24 Hours 08/07/20 08/07/20 08/07/20 Range/Units 04:55 04:55 04:55 WBC 14.6 H (4.0-10.5) K/mm3 RBC 4.03 L (4.1-5.4) M/mm3 Hgb 12.5 (12.0-16.0) gm/dl Hct 37.8 (35-47) % MCV 93.8 (78-100) fl MCH 31.0 (26-32) pg MCHC 33.1 (32-36) g/dl RDW 12.5 (11.5-14.0) % Plt Count 318 (150-450) K/mm3 MPV 10.6 (7.5-11.0) fl Gran % 71.4 H (36.0-66.0) % Eos # (Auto) 0.02 (0-0.5) Absolute Lymphs (auto) 3.07 (1.0-4.6) Absolute Monos (auto) 1.04 (0.0-1.3) Lymphocytes % 21.1 L (24.0-44.0) % Monocytes % 7.1 (0.0-12.0) % Eosinophils % 0.1 (0.00-5.0) % Basophils % 0.3 (0.0-0.4) % Absolute Granulocytes 10.40 H (1.4-6.9) Basophils # 0.04 (0-0.4) Sodium 135 L (137-145) mmol/L Potassium 3.7 (3.5-5.1) mmol/L Chloride 104 (98-107) mmol/L Carbon Dioxide 21 L (22-30) mmol/L Anion Gap 13.9 (5-15) MEQ/L BUN 10 (7-17) mg/dL Creatinine 0.99 (0.52-1.04) mg/dL Estimated GFR > 60.0 ML/MIN Glucose 133 H (74-106) mg/dL Calcium 8.5 (8.4-10.2) mg/dL Magnesium 1.7 (1.6-2.3) mg/dL Total Bilirubin 0.60 (0.2-1.3) mg/dL AST 22 (14-36) U/L ALT 12 (0-35) U/L Alkaline Phosphatase 118 (38-126) U/L Serum Total Protein 7.8 (6.3-8.2) g/dL Albumin 4.1 (3.5-5.0) g/dL Micro Results-Entire Visit: Microbiology 08/05/20 20:19 Urine Culture - Final Urine, Catheterized <10K NORMAL SKIN LOWELL PROBABLE SKIN CONTAMINANT 08/05/20 18:07 Blood Culture - Preliminary Blood NO GROWTH TO DATE 08/05/20 18:00 Blood Culture - Preliminary Blood NO GROWTH TO DATE - Radiology Exams Ordered Rad Exams-Entire Visit: Radiology Procedures Category Date Time Status ABDOMEN AND PELVIS W/0 CONTRAS [CT] Stat Exams 08/05/20 17:47 Completed BLADDER [US] Routine Exams 08/06/20 10:00 Completed - Procedures and Test Procedures and Tests throughout Hospitalization: Therapy Orders & Screens 08/06/20 13:50 Respiratory Therapy Assessment DAILY Comment: Diagnosis: N&V epigastric pain 08/06/20 13:51 Respiratory MDI Q4H Comment: Diagnosis: N&V epigastric pain Discharge Exam General Appearance: no apparent distress, alert Neurologic Exam: alert, cooperative Respiratory Exam: normal breath sounds, lungs clear, No respiratory distress Cardiovascular Exam: regular rate/rhythm, normal heart sounds Gastrointestinal/Abdomen Exam: soft, normal bowel sounds Final Diagnosis/Problem List - Final Discharge Diagnosis/Problem (1) Abdominal pain Current Visit: Yes Status: Acute Assessment & Plan: needs to f/u with Dr Najera her PCP, appears as though she has chronic pain and complaints that might need pain management vs GI evaluation but nothing acute found on workup here and again, tolerating po intake and appears to be in no distress and she requested to be discharged today upon rounds this morning Code(s): R10.9 - UNSPECIFIED ABDOMINAL PAIN (2) Vomiting Current Visit: No Status: Acute Code(s): R11.10 - VOMITING, UNSPECIFIED (3) Urinary retention Current Visit: Yes Status: Acute Assessment & Plan: keep daigle in place until seen by urology Code(s): R33.9 - RETENTION OF URINE, UNSPECIFIED (4) Esophageal stricture Current Visit: Yes Status: Acute Assessment & Plan: s/p dilation, will f/u with Dr Turk, avoid nsaids or blood thinners adding ppi Code(s): K22.2 - ESOPHAGEAL OBSTRUCTION - Discharge Disposition: Home, Self-Care Condition: Stable Prescriptions: New PANTOPRAZOLE 40 mg Tablet [Protonix 40MG Tablet] 40 mg PO DAILY #30 tab Continue Albuterol 8 gm Mdi Hfa [Ventolin Hfa MDI] 18 gm IH Q4H raNITIdine HCL [Ranitidine HCl] 150 mg PO DAILY Amlodipine Besylate 10 mg PO DAILY Atorvastatin Calcium [Lipitor] 20 mg PO DAILY Pregabalin [Lyrica 75 mg Cap] 75 mg PO BID Clopidogrel Bisulfate 75 mg [PLAVIX 75 MG Tablet] 1 tab PO DAILY Clonidine HCl 0.1 mg [Catapres 0.1 MG] 1 tab PO BID Follow up with: SHAYLA TURK [COURTESY STAFF] - (2 WEEK FOLLOW UP) MANASA HUGHES [COURTESY STAFF] - 1 Week (MAKE A UROLOGY APPOINTMENT UPON DISCHARGE.) MANFRED TANNER MD [Primary Care Provider] - 5 Days
[2020-08-07 20:05] VITALS: BP 114/68; PULSE 107
[2020-08-08] MEDS ORDERED: PLAVIX 75 MG Tablet PO SCH (10:00)
== END 2020-08-07 20:55 | disposition home or self-care (01) ==
LOC: ED 14:48 → MED SURG 22:54 → EEVIPCON 22:54
PROVIDERS: ADMIT Family Medicine; ATTEND Family Medicine
DX: R10.9 Unspecified abdominal pain (principal); R33.9 Retention of urine, unspecified; K92.0 Hematemesis; K22.2 Esophageal obstruction; D72.829 Elevated white blood cell count, unspecified; R07.9 Chest pain, unspecified; D12.8 Benign neoplasm of rectum; E87.6 Hypokalemia; E87.1 Hypo-osmolality and hyponatremia; R42 Dizziness and giddiness; Z79.899 Other long term (current) drug therapy; Z79.01 Long term (current) use of anticoagulants; I10 Essential (primary) hypertension; E78.00 Pure hypercholesterolemia, unspecified; R63.4 Abnormal weight loss; N17.9 Acute kidney failure, unspecified; K44.9 Diaphragmatic hernia without obstruction or gangrene; K29.70 Gastritis, unspecified, without bleeding; K20.90 Esophagitis, unspecified without bleeding; K22.4 Dyskinesia of esophagus; K57.30 Diverticulosis of large intestine without perforation or abscess without bleeding
CPT/HCPCS: 36000; 36415; 43239; 43249; 45384; 45385; 51702; 71045; 74176; 76705; 80053; 81001; 82150; 83690; 83735; 84484; 85025; 87040; 87086; 93005; 93041; 93268; 94640; 94760; 96360; 96367; 96368; 96374; 96375; 99285; G0378; C1726; J1170; J1200; J1956; J2405; J2704; J3010; J3475; A9270-GY

== ENCOUNTER 2020-08-12 11:57 | Emergency (ER) | payer OTHER ==
[2020-08-12] MEDS ORDERED: Sodium Chloride 0.9% 1000 ML 1,000 ML IV SCH (12:15)
[2020-08-12] MEDS ORDERED: Sodium Chloride 0.9% 1000 ML 1,000 ML ONE (12:16)
[2020-08-12 12:31] LABS: ALBUMIN 4.5 g/dL (3.5-5.0); ALKALINE PHOSPHATASE 111 U/L (38-126); ANION GAP 11.3 MEQ/L (5-15); BLOOD UREA NITROGEN 9 mg/dL (7-17); CHLORIDE 105 mmol/L (98-107); Calcium 9.5 mg/dL (8.4-10.2); Carbon Dioxide 27 mmol/L (22-30); Creatinine 1 0.96 mg/dL (0.52-1.04); EST GLOMERULAR FILTRATION RATE > 60.0 ML/MIN; Glucose 131 mg/dL (74-106); LIPASE 37 U/L (23-300); SGOT/AST 18 U/L (14-36); SGPT/ALT 10 U/L (0-35); SODIUM 140 mmol/L (137-145); Total Protein 8.6 g/dL (6.3-8.2)
[2020-08-12] MEDS ORDERED: Zofran 4 MG/2 ML VIAL IV ONE (12:33)
[2020-08-12] MEDS ORDERED: MORPHINE SULFATE 2 MG INJ IV ONE (12:33)
[2020-08-12 12:34] LABS: Potassium 2.8 mmol/L (3.5-5.1)
[2020-08-12] MEDS ORDERED: Klor Con 10 MEQ PO ONE ×2 (12:35→12:44)
[2020-08-12] MEDS ORDERED: MORPHINE SULFATE 2 MG INJ ONE (12:44)
[2020-08-12] MEDS ORDERED: Zofran 4 MG/2 ML VIAL ONE (12:44)
--- NOTE | 2020-08-12 12:45 | ERPHSYRPT ---
- History of Present Illness Time Seen by Provider: 08/12/20 12:10 Source: patient Exam Limitations: no limitations Patient Subjective Stated Complaint: Pt reports having a colonoscopy last week and since then she has had pain in her RLQ with mucus diarrhea and bright red blood, rates her pain as 10/10 Triage Nursing Assessment: Pt brought to the ER by a friend, hypertensive, rates abdominal pain as 10/10, pain with palpatation to the RLQ, bowel sounds heard in all 4 quadrants, last intake was 4-5 days ago, no appetite, reports mucus diarrhea with bright red blood, skin n/w/d, pt has a daigle catheter placed and is to see a urologist tomorrow due to "something wrong with my bladder" Physician History: Patient is a 54-year-old female presents to our ED for evaluation of bloody diarrhea. Patient states she had a colonoscopy approximately 1 week ago. Since then she has been experiencing diarrhea with bright red blood and mucus. Patient complains at her right lower quadrant of her abdomen is painful. Pain r ated 10 out of 10. Pain is well localized. No radiation. No associated trauma. No fever. No nausea or vomiting. No chest pain or shortness of breath. Symptoms are mild to moderate in intensity. No specific worsening or improving factors. Patient voices no other complaints or concerns at this time. Timing/Duration: week(s) Severity: moderate Modifying Factors: Improves With: nothing Associated Symptoms: No nausea, No vomiting, No shortness of breath, No cough, No chest pain, No fever, No headaches, No rash, No syncope, No seizure, No weakness Allergies/Adverse Reactions: gabapentin [From Neurontin] Allergy (Intermediate, Verified 08/12/20 12:13) Rash Penicillins Adverse Reaction (Intermediate, Verified 08/12/20 12:13) Nausea and Vomiting Home Medications: Albuterol 8 gm Mdi Hfa [Ventolin Hfa MDI] 18 gm IH Q4H 09/16/16 [History] raNITIdine HCL [Ranitidine HCl] 150 mg PO DAILY 10/20/16 [History] Amlodipine Besylate 10 mg PO DAILY 03/23/19 [History] Atorvastatin Calcium [Lipitor] 20 mg PO DAILY 03/23/19 [History] Clonidine HCl 0.1 mg [Catapres 0.1 MG] 1 tab PO BID 10/13/19 [History] Clopidogrel Bisulfate 75 mg [PLAVIX 75 MG Tablet] 1 tab PO DAILY 10/13/19 [History] Pregabalin [Lyrica 75 mg Cap] 75 mg PO BID 10/13/19 [History] Hx Tetanus, Diphtheria Vaccination/Date Given: Yes Hx Influenza Vaccination/Date Given: No Hx Pneumococcal Vaccination/Date Given: No Travel Risk - International Travel Have you traveled outside of the country in past 3 weeks: No - Coronavirus Screening Are you exhibiting any of the following symptoms?: No Close contact with a COVID-19 positive Pt in past 14-21 Days: No - Review of Systems Constitutional: No Symptoms, No Fever, No Chills Eyes: No Symptoms Ears, Nose, & Throat: No Symptoms Respiratory: No Symptoms, No Cough, No Dyspnea Cardiac: No Symptoms, No Chest Pain, No Edema, No Syncope Abdominal/Gastrointestinal: No Symptoms, No Abdominal Pain, No Nausea, No Vomiting, No Diarrhea Genitourinary Symptoms: No Symptoms, No Dysuria Musculoskeletal: No Symptoms, No Back Pain, No Neck Pain Skin: No Symptoms, No Rash Neurological: No Symptoms, No Dizziness, No Focal Weakness, No Sensory Changes Psychological: No Symptoms Endocrine: No Symptoms Hematologic/Lymphatic: No Symptoms Immunological/Allergic: No Symptoms All Other Systems: Reviewed and Negative - Past Medical History Pertinent Past Medical History: Yes Neurological History: No Pertinent History ENT History: No Pertinent History Cardiac History: High Cholesterol, Hypertension Respiratory History: Asthma Endocrine Medical History: No Pertinent History Musculoskeletal History: No Pertinent History GI Medical History: GERD History: No Pertinent History Psycho-Social History: Anxiety, Depression Female Reproductive Disorders: No Pertinent History - Past Surgical History Past Surgical History: Yes Neuro Surgical History: No Pertinent History Cardiac: No Pertinent History, Cardiac Catheterization Respiratory: No Pertinent History Gastrointestinal: No Pertinent History Genitourinary: No Pertinent History Musculoskeletal: Orthopedic Surgery Female Surgical History: Hysterectomy, Section, Other Other Surgical History: exploratory lap prior to hysterectomy, cervical/neck disc surgery twice - Social History Smoking Status: Current every day smoker How long have you smoked: 39 yers Exposure to second hand smoke: Yes Drug Use: marijuana Patient Lives Alone: No - Nursing Vital Signs Nursing Vital Signs: Initial Vital Signs Temperature 98.8 F 08/12/20 12:01 Pulse Rate 104 H 08/12/20 12:01 Blood Pressure 167/108 08/12/20 12:01 O2 Sat by Pulse Oximetry 98 08/12/20 12:01 Pain Scale Pain Intensity 8 - Physical Exam General Appearance: no apparent distress, alert Eye Exam: PERRL/EOMI, eyes nml inspection Ears, Nose, Throat Exam: normal ENT inspection, TMs normal, pharynx normal, moist mucous membranes Neck Exam: normal inspection, non-tender, supple, full range of motion Respiratory Exam: normal breath sounds, lungs clear, No respiratory distress Cardiovascular Exam: regular rate/rhythm, normal heart sounds, normal peripheral pulses Gastrointestinal/Abdomen Exam: soft, normal bowel sounds, tenderness, other (Indwelling Daigle catheter), No mass, No guarding (Tenderness to Palpation right lower quadrant. Overlying soft tissue intact.) Back Exam: normal inspection, normal range of motion, No CVA tenderness, No vertebral tenderness Extremity Exam: normal inspection, normal range of motion, pelvis stable Neurologic Exam: alert, oriented x 3, cooperative, normal mood/affect, nml cerebellar function, nml station & gait, sensation nml, No motor deficits Skin Exam: normal color, warm, dry, No rash Lymphatic Exam: No adenopathy SpO2 Interpretation: normal SpO2: 98 O2 Delivery: Room Air - Course Nursing assessment & vital signs reviewed: Yes Ordered Tests: Active Orders 24 hr Category Date Time Status IV Insertion STAT Care 08/12/20 12:06 Active ABDOMEN AND PELVIS W CONTRAST [CT] Stat Exams 08/12/20 12:06 Completed CBC W DIFF Stat Lab 08/12/20 12:10 Completed CMP Stat Lab 08/12/20 12:10 Completed LIPASE Stat Lab 08/12/20 12:10 Completed UA W/RFX UR CULTURE Stat Lab 08/12/20 15:06 Completed Medication Summary Generic Name Dose Route Start Last Admin Trade Name Freq PRN Reason Stop Dose Admin Sodium Chloride 1,000 mls @ 100 mls/hr 08/12/20 12:15 08/12/20 12:17 Sodium Chloride 0.9% 1000 Ml IV 09/11/20 12:14 100 mls/hr .Q10H BARBARA Administration Discontinued Medications Generic Name Dose Route Start Last Admin Trade Name Freq PRN Reason Stop Dose Admin Morphine Sulfate 2 mg 08/12/20 12:33 08/12/20 12:45 Morphine Sulfate 2 Mg Inj IV 08/12/20 12:34 2 mg STAT ONE Administration Morphine Sulfate Confirm 08/12/20 12:44 Morphine Sulfate 2 Mg Inj Administered 08/12/20 12:45 Dose 2 mg .ROUTE .STK-MED ONE Morphine Sulfate 4 mg 08/12/20 14:12 08/12/20 14:22 Morphine Sulfate 4 Mg Inj IV 08/12/20 14:13 4 mg STAT ONE Administration Morphine Sulfate Confirm 08/12/20 14:20 Morphine Sulfate 4 Mg Inj Administered 08/12/20 14:21 Dose 4 mg .ROUTE .STK-MED ONE Ondansetron HCl 4 mg 08/12/20 12:33 08/12/20 12:45 Zofran 4 Mg/2 Ml Vial IV 08/12/20 12:34 4 mg STAT ONE Administration Ondansetron HCl Confirm 08/12/20 12:44 Zofran 4 Mg/2 Ml Vial Administered 08/12/20 12:45 Dose 4 mg .ROUTE .STK-MED ONE Pantoprazole Sodium 40 mg 08/12/20 15:00 08/12/20 15:08 Protonix 40 Mg Iv IV 08/12/20 15:01 40 mg STAT ONE Administration Pantoprazole Sodium Confirm 08/12/20 15:06 Protonix 40 Mg Iv Administered 08/12/20 15:07 Dose 40 mg IV .STK-MED ONE Potassium Chloride 40 meq 08/12/20 12:35 08/12/20 12:46 Klor Con 10 Meq PO 08/12/20 12:36 40 meq STAT ONE Administration Potassium Chloride Confirm 08/12/20 12:44 Klor Con 10 Meq Administered 08/12/20 12:45 Dose 40 meq PO .STK-MED ONE Lab/Rad Data: Laboratory Result Diagrams 08/12/20 12:10 08/12/20 12:10 Laboratory Results 08/12/20 08/12/20 08/12/20 Range/Units 15:06 12:10 12:10 WBC 14.2 H (4.0-10.5) K/mm3 RBC 4.35 (4.1-5.4) M/mm3 Hgb 13.4 (12.0-16.0) gm/dl Hct 40.1 (35-47) % MCV 92.2 (78-100) fl MCH 30.8 (26-32) pg MCHC 33.4 (32-36) g/dl RDW 12.3 (11.5-14.0) % Plt Count 311 (150-450) K/mm3 MPV 10.4 (7.5-11.0) fl Gran % 66.3 H (36.0-66.0) % Eos # (Auto) 0.21 (0-0.5) Absolute Lymphs (auto) 3.39 (1.0-4.6) Absolute Monos (auto) 1.17 (0.0-1.3) Lymphocytes % 23.8 L (24.0-44.0) % Monocytes % 8.2 (0.0-12.0) % Eosinophils % 1.5 (0.00-5.0) % Basophils % 0.2 (0.0-0.4) % Absolute Granulocytes 9.43 H (1.4-6.9) Basophils # 0.03 (0-0.4) Sodium 140 (137-145) mmol/L Potassium 2.8 L* (3.5-5.1) mmol/L Chloride 105 (98-107) mmol/L Carbon Dioxide 27 (22-30) mmol/L Anion Gap 11.3 (5-15) MEQ/L BUN 9 (7-17) mg/dL Creatinine 0.96 (0.52-1.04) mg/dL Estimated GFR > 60.0 ML/MIN Glucose 131 H (74-106) mg/dL Calcium 9.5 (8.4-10.2) mg/dL Total Bilirubin 0.40 (0.2-1.3) mg/dL AST 18 (14-36) U/L ALT 10 (0-35) U/L Alkaline Phosphatase 111 (38-126) U/L Serum Total Protein 8.6 H (6.3-8.2) g/dL Albumin 4.5 (3.5-5.0) g/dL Lipase 37 (23-300) U/L Urine Color YELLOW (YELLOW) Urine Appearance CLEAR (CLEAR) Urine pH 7.0 (5-6) Ur Specific [place] 1.010 (1.005-1.025) Urine Protein 30 (Negative) Urine Ketones NEGATIVE (NEGATIVE) Urine Blood NEGATIVE (0-5) Buster/ul Urine Nitrite NEGATIVE (NEGATIVE) Urine Bilirubin NEGATIVE (NEGATIVE) Urine Urobilinogen NEGATIVE (0-1) mg/dL Ur Leukocyte Esterase NEGATIVE (NEGATIVE) Urine WBC (Auto) 0-2 (0-5) /HPF Urine RBC (Auto) NONE SEEN (0-2) /HPF U Epithel Cells (Auto) NONE (FEW) /HPF Urine Bacteria (Auto) NONE SEEN (NEGATIVE) /HPF Urine Culture Reflexed NO (NO) Urine Glucose NEGATIVE (NEGATIVE) mg/dL - Progress Progress: improved Progress Note: 08/12/20 16:45 Patient reassessed. After first reassessment patient continues to experience abdominal pain. We decided to admit patient to the hospital. Case discussed with patient's surgeon who advised patient be transferred to a hospital where her urologist is also available. We contacted [facility]. Dr. Michael declined admission. Patient reassessed. Patient states she feels better. States abdominal pain resolved. Patient requesting discharge. Potassium replaced. CT scan shows ileus versus enteritis. Patient tolerated clear liquids in our ED. Patient will continue with clear liquids for the next stated to slowly advance her diet. Patient agrees to follow-up with her primary care doctor within 48 hours for reevaluation. Discussed with Dr.: Jose Eduardo Counseled pt/family regarding: lab results, diagnosis, need for follow-up, rad results - Departure Departure Disposition: Observation Clinical Impression: Rectal bleeding, Enteritis, Abdominal pain, Lung nodule, Renal cyst, Hypokalemia Condition: Stable Critical Care Time: No Referrals: MANFRED TANNER MD [Primary Care Provider] - Instructions: Gastrointestinal Bleeding (DC) Additional Instructions: Discharge/Care Plan KIEL SAMPSON was seen on 08/12/20 in the Emergency Room. The patient was counseled regarding Diagnosis,Lab results, Imaging studies, need for follow up and when to return to the Emergency Room. Prescriptions given: Discharge Note I have spoken with the patient and/or caregivers. I have explained the patient's condition, diagnosis and treatment plan based on the information available to me at this time. I have answered the patient's and/or caregiver's questions and addressed any concerns. The patient and/or caregivers have as good understanding of the patient's diagnosis, condition and treatment plan as can be expected at this point. The vital signs have been stable. The patient's condition is stable and appropriate for discharge from the emergency department. The patient will pursue further outpatient evaluation with the primary care physician or other designated or consulting physician as outlined in the discharge instructions. The patient and/or caregivers are agreeable to this plan of care and follow-up instructions have been explained in detail. The patient and/or caregivers have received these instruction. The patient/and or caregivers are aware that any significant change in condition or worsening of symptoms should prompt an immediate return to this or the closest emergency department or call 911.
[2020-08-12 13:01] LABS: Absolute Neutrophil Ct (ANC) 9.43 (1.4-6.9); BASOPHIL % 0.2 % (0.0-0.4); Basophil (Absolute #) 0.03 (0-0.4); Eosinophil % 1.5 % (0.00-5.0); Eosinophil (Absolute #) 0.21 (0-0.5); Hematocrit 40.1 % (35-47); Hemoglobin 13.4 gm/dl (12.0-16.0); Lymphocyte (Absolute #) 3.39 (1.0-4.6); Lymphocytes % 23.8 % (24.0-44.0); Mean Cell Volume 92.2 fl (78-100); Mean Corpuscular Hemoglobin 30.8 pg (26-32); Mean Corpuscular Hgb Concent. 33.4 g/dl (32-36); Mean Platelet Volume 10.4 fl (7.5-11.0); Monocyte (Absolute #) 1.17 (0.0-1.3); Monocytes % 8.2 % (0.0-12.0); Neutrophil % 66.3 % (36.0-66.0); Platelet Count 311 K/mm3 (150-450); Red Blood Count 4.35 M/mm3 (4.1-5.4); Red Cell Distribution Width 12.3 % (11.5-14.0); White Blood Count 14.2 K/mm3 (4.0-10.5)
[2020-08-12] MEDS ORDERED: MORPHINE SULFATE 4 MG INJ IV ONE (14:12)
--- NOTE | 2020-08-12 14:13 | XRAY ---
Indication: Because and blood in stool following colonoscopy last week. Multiple contiguous axial images obtained through the abdomen and pelvis using 80 cc Isovue 370 contrast only. Comparison: August 05, 2020. Lung bases again demonstrates pulmonary emphysema, bronchiectasis, minimal dependent atelectasis, posterior peripheral cystic changes, tiny right posterior gutter calcified granuloma, and tiny indeterminate noncalcified micronodules bilaterally. Heart is not enlarged. Noncontrasted stomach and bowel loops nonobstructed. There is now mild uniformly fluid distended small bowel loops with few air-fluid leveling, ileus versus enteritis. Normal air-filled appendix. No free fluid/air. Urinary bladder distended with new Mtz balloon catheter in situ. Left kidney remains smaller compared to contralateral again presumed vascular in etiology given left renal artery stent graft. Stable left renal cysts and hysterectomy. Remaining liver, gallbladder, pancreas, spleen, adrenal glands, kidneys, ureters, and bladder are unremarkable. Stable moderate scattered aortoiliac calcifications without AAA. No pathologic retroperitoneal lymphadenopathy. Impression: 1. New mild fluid distended small bowel loops with fluid leveling, ileus versus enteritis. 2. New Mtz catheter in situ. 3. Stable left renal atrophy with renal artery stent graft, left renal cysts, and bibasilar lung findings. 4. Remaining CT abdomen/pelvis with contrast exam is negative.
[2020-08-12 14:18] VITALS: PULSE 90
[2020-08-12] MEDS ORDERED: MORPHINE SULFATE 4 MG INJ ONE (14:20)
[2020-08-12 14:23] VITALS: O2SAT 98
[2020-08-12] MEDS ORDERED: PROTONIX 40 MG IV IV ONE ×2 (15:00→15:06)
[2020-08-12 16:28] LABS: Appearance CLEAR (CLEAR); Bilirubin NEGATIVE (NEGATIVE); Blood NEGATIVE Ery/ul (0-5); Glucose NEGATIVE (NEGATIVE); Ketones NEGATIVE (NEGATIVE); Leukocyte Esterase NEGATIVE (NEGATIVE); Nitrite NEGATIVE (NEGATIVE); Protein,Urine Dip 30 (Negative); Urobilinogen NEGATIVE mg/dL (0-1); WBC 0-2 /HPF (0-5)
[2020-08-12 16:36] LABS: Bacteria NONE SEEN /HPF (NEGATIVE); RBC NONE SEEN /HPF (0-2)
[2020-08-12] MEDS ORDERED: NORCO 5/325 MG PO ONE (16:51)
[2020-08-12 16:55] VITALS: BP 131/86
[2020-08-12] MEDS ORDERED: NORCO 5/325 MG ONE (17:02)
== END 2020-08-12 17:44 | disposition home or self-care (01) ==
LOC: ED 11:57
DX: K62.5 Hemorrhage of anus and rectum (principal); K52.9 Noninfective gastroenteritis and colitis, unspecified; R10.9 Unspecified abdominal pain; R91.1 Solitary pulmonary nodule; N28.1 Cyst of kidney, acquired; E87.6 Hypokalemia
CPT/HCPCS: 36000; 36415; 74177; 80053; 81001; 83690; 85025; 96374; 96375; 99284; J2270; J2405; A9270-GY

== ENCOUNTER 2020-08-29 15:41 | Emergency (ER) | payer OTHER ==
[2020-08-29] MEDS ORDERED: Sodium Chloride 0.9% 1000 ML 1,000 ML IV STA (16:09)
[2020-08-29] MEDS ORDERED: Zofran 4 MG/2 ML VIAL IV ONE (16:09)
[2020-08-29] MEDS ORDERED: TRANDATE 20 MG/4 ML SYRINGE IV ONE ×2 (16:11→16:14)
[2020-08-29] MEDS ORDERED: Sodium Chloride 0.9% 1000 ML 1,000 ML ONE (16:14)
[2020-08-29] MEDS ORDERED: Zofran 4 MG/2 ML VIAL ONE (16:14)
[2020-08-29 16:26] LABS: Absolute Neutrophil Ct (ANC) 12.26 (1.4-6.9); BASOPHIL % 0.1 % (0.0-0.4); Basophil (Absolute #) 0.02 (0-0.4); Eosinophil % 0.3 % (0.00-5.0); Eosinophil (Absolute #) 0.05 (0-0.5); Hematocrit 44.2 % (35-47); Hemoglobin 15.4 gm/dl (12.0-16.0); Lymphocyte (Absolute #) 2.84 (1.0-4.6); Lymphocytes % 17.4 % (24.0-44.0); Mean Cell Volume 88.8 fl (78-100); Mean Corpuscular Hemoglobin 30.9 pg (26-32); Mean Corpuscular Hgb Concent. 34.8 g/dl (32-36); Mean Platelet Volume 9.9 fl (7.5-11.0); Monocyte (Absolute #) 1.19 (0.0-1.3); Monocytes % 7.3 % (0.0-12.0); Neutrophil % 74.9 % (36.0-66.0); Platelet Count 519 K/mm3 (150-450); Red Blood Count 4.98 M/mm3 (4.1-5.4); Red Cell Distribution Width 12.3 % (11.5-14.0); White Blood Count 16.4 K/mm3 (4.0-10.5)
--- NOTE | 2020-08-29 16:42 | ERPHSYRPT ---
- History of Present Illness Historian: patient, EMS Patient Subjective Stated Complaint: SOB, cough, N&V, fever, stomach pain Triage Nursing Assessment: Pt brought into the ER by EMS, hypertensive, rates chest and abdominal pain as 10/10, N&V for 3 weeks per patient, hasn't had a bowel movement in over 2 weeks per patient, bowel sounds heard in all 4 quadrants, abdoment is soft and non tender Physician History: 54yo wf w N/V x3 wks. Pt had diarrhea which has resolved but has periumbilical abdominal pain which she rates a 10 and stabbing. She has had mild cough/cor yza/fever but denies hematemesis/melena/hematochezia/dysuria/hematuria. Timing/Duration: other (3 wks) Quality: stabbing Abdominal Pain Onset Location: periumbilical Pain Radiation: no radiation Severity of Pain-Max: severe Severity of Pain-Current: severe Modifying Factors: Improves With: nothing Associated Symptoms: diarrhea, fever/chills, fatigue, loss of appetite, nausea, vomiting, weakness, No back, No chest pain, No diaphoresis, No headache, No heartburn, No neck pain, No rash, No shortness of breath, No syncope Previous symptoms: same symptoms as today Allergies/Adverse Reactions: gabapentin [From Neurontin] Allergy (Intermediate, Verified 08/29/20 15:58) Rash Penicillins Adverse Reaction (Intermediate, Verified 08/29/20 15:58) Nausea and Vomiting Home Medications: Albuterol 8 gm Mdi Hfa [Ventolin Hfa MDI] 18 gm IH Q4H 09/16/16 [History] raNITIdine HCL [Ranitidine HCl] 150 mg PO DAILY 10/20/16 [History] Amlodipine Besylate 10 mg PO DAILY 03/23/19 [History] Atorvastatin Calcium [Lipitor] 20 mg PO DAILY 03/23/19 [History] Clonidine HCl 0.1 mg [Catapres 0.1 MG] 1 tab PO BID 10/13/19 [History] Clopidogrel Bisulfate 75 mg [PLAVIX 75 MG Tablet] 1 tab PO DAILY 10/13/19 [History] Pregabalin [Lyrica 75 mg Cap] 75 mg PO BID 10/13/19 [History] Hx Tetanus, Diphtheria Vaccination/Date Given: Yes Hx Influenza Vaccination/Date Given: No Hx Pneumococcal Vaccination/Date Given: No Travel Risk - International Travel Have you traveled outside of the country in past 3 weeks: No - Coronavirus Screening Are you exhibiting any of the following symptoms?: Yes Symptoms: Fever, Shortness of Breath, Vomiting/Diarrhea, Headaches/Body Aches/Fatigue Close contact with a COVID-19 positive Pt in past 14-21 Days: Yes - Review of Systems Constitutional: Fever, Chills, Fatigue Eyes: No Symptoms Ears, Nose, & Throat: No Symptoms Respiratory: Cough Cardiac: No Symptoms Abdominal/Gastrointestinal: Abdominal Pain, Nausea, Vomiting, Appetite Changes, No Diarrhea, No Constipation, No Hematemesis, No Hematochezia, No Melena, No Dysphagia Genitourinary Symptoms: No Symptoms Musculoskeletal: No Symptoms Skin: No Symptoms Neurological: No Symptoms Psychological: No Symptoms Endocrine: No Symptoms Hematologic/Lymphatic: No Symptoms Immunological/Allergic: No Symptoms - Past Medical History Pertinent Past Medical History: Yes Neurological History: No Pertinent History ENT History: No Pertinent History Cardiac History: High Cholesterol, Hypertension Respiratory History: Asthma Endocrine Medical History: No Pertinent History Musculoskeletal History: No Pertinent History GI Medical History: GERD History: No Pertinent History Psycho-Social History: Anxiety, Depression Female Reproductive Disorders: No Pertinent History - Past Surgical History Past Surgical History: Yes Neuro Surgical History: No Pertinent History Cardiac: No Pertinent History, Cardiac Catheterization Respiratory: No Pertinent History Gastrointestinal: No Pertinent History Genitourinary: No Pertinent History Musculoskeletal: Orthopedic Surgery Female Surgical History: Hysterectomy, Section, Other Other Surgical History: exploratory lap prior to hysterectomy, cervical/neck disc surgery twice - Social History Smoking Status: Current every day smoker How long have you smoked: 39 yers Exposure to second hand smoke: Yes Drug Use: marijuana Patient Lives Alone: No Significant Family History: no pertinent family hx - Female History Hx Now: No - Nursing Vital Signs Nursing Vital Signs: Initial Vital Signs Temperature 98.1 F 08/29/20 15:44 Pulse Rate 95 H 08/29/20 15:44 Respiratory Rate 11 L 08/29/20 15:44 Blood Pressure 219/149 08/29/20 15:44 O2 Sat by Pulse Oximetry 100 08/29/20 15:44 Pain Scale Pain Intensity 4 - Physical Exam General Appearance: no apparent distress Eye Exam: PERRL/EOMI, eyes nml inspection Ears, Nose, Throat Exam: normal ENT inspection, TMs normal, pharynx normal, moist mucous membranes Neck Exam: normal inspection, non-tender, supple, full range of motion, No meningismus, No mass, No Kernig's, No carotid bruit Respiratory Exam: normal breath sounds, lungs clear, airway intact, No respiratory distress Cardiovascular Exam: regular rate/rhythm, No murmur Gastrointestinal/Abdomen Exam: soft, normal bowel sounds, tenderness (Mild periumbilical ttp wo guarding or rebound) Back Exam: normal inspection, normal range of motion, No CVA tenderness Extremity Exam: normal inspection, normal range of motion Neurologic Exam: alert, oriented x 3, cooperative, bathhouse attendant II-XII nml as tested, normal mood/affect, nml cerebellar function, nml station & gait, sensation nml, No motor deficits, No sensory deficit Skin Exam: normal color, warm, dry, No rash Lymphatic Exam: No adenopathy SpO2 Interpretation: normal SpO2: 100 O2 Delivery: Room Air - Course Nursing assessment & vital signs reviewed: Yes EKG Interpreted by Me: RATE (NSR/R84/Mildly prolonged QTc/Borderline 1st degree AV block/No acute ST changes) - CT Exams Abdomen/Pelvis CT Interpretation: Discussed w/radiologist (Fecal stasis/Mildly distended gallbladder wo stones or biliary distension) - Radiology Ultrasound Exam Gallbladder Ultrasound: Other (Per tech-mild sludging, otherwise neg) Ordered Tests: Active Orders 24 hr Category Date Time Status EKG-ER Only STAT Care 08/29/20 16:09 Completed IV Insertion STAT Care 08/29/20 16:09 Completed ABDOMEN AND PELVIS W CONTRAST [CT] Stat Exams 08/29/20 17:28 Taken GALLBLADDER [US] Stat Exams 08/29/20 19:05 Taken AMYLASE Stat Lab 08/29/20 16:15 Completed CBC W DIFF Stat Lab 08/29/20 16:15 Completed CMP Stat Lab 08/29/20 16:15 Completed CULTURE,URINE Stat Lab 08/29/20 16:15 Received LIPASE Stat Lab 08/29/20 16:15 Completed TROPONIN Q3H Lab 08/29/20 16:15 Completed UA W/RFX UR CULTURE Stat Lab 08/29/20 16:15 Completed Urine Triage Profile Stat Lab 08/29/20 16:15 Completed Medication Summary Discontinued Medications Generic Name Dose Route Start Last Admin Trade Name Mirta PRN Reason Stop Dose Admin Sodium Chloride 1,000 mls @ 999 mls/hr 08/29/20 16:09 08/29/20 17:34 Sodium Chloride 0.9% 1000 Ml IV 08/29/20 17:09 Infused .Q1H1M STA Infusion Sodium Chloride Confirm 08/29/20 16:14 Sodium Chloride 0.9% 1000 Ml Administered 08/29/20 16:15 Dose 1,000 mls @ ud .ROUTE .STK-MED ONE Potassium Chloride/Sodium Chloride 1,000 mls @ 1,000 mls/hr 08/29/20 17:30 08/29/20 20:03 Sodium Chloride 0.9% W/ 20 Meq Kcl/Liter IV 09/28/20 17:29 Infused .Q1H BARBARA Infusion Potassium Chloride/Sodium Chloride Confirm 08/29/20 18:40 Sodium Chloride 0.9% W/ 20 Meq Kcl/Liter Administered 08/29/20 18:41 Dose 1,000 mls @ ud IV .STK-MED ONE Ketorolac Tromethamine 30 mg 08/29/20 16:46 08/29/20 16:47 Toradol 30 Mg Injection IV 08/29/20 16:47 30 mg STAT ONE Administration Ketorolac Tromethamine Confirm 08/29/20 16:47 Toradol 30 Mg Injection Administered 08/29/20 16:48 Dose 30 mg .ROUTE .STK-MED ONE Labetalol HCl 20 mg 08/29/20 16:11 08/29/20 16:23 Trandate 20 Mg/4 Ml Syringe IV 08/29/20 16:12 20 mg STAT ONE Administration Labetalol HCl Confirm 08/29/20 16:14 Trandate 20 Mg/4 Ml Syringe Administered 08/29/20 16:15 Dose 20 mg IV .STK-MED ONE Ondansetron HCl 4 mg 08/29/20 16:09 08/29/20 16:23 Zofran 4 Mg/2 Ml Vial IV 08/29/20 16:10 4 mg STAT ONE Administration Ondansetron HCl Confirm 08/29/20 16:14 Zofran 4 Mg/2 Ml Vial Administered 08/29/20 16:15 Dose 4 mg .ROUTE .STK-MED ONE Lab/Rad Data: Laboratory Result Diagrams 08/29/20 16:15 08/29/20 16:15 Laboratory Results 08/29/20 08/29/20 08/29/20 Range/Units 16:15 16:15 16:15 WBC 16.4 H (4.0-10.5) K/mm3 RBC 4.98 (4.1-5.4) M/mm3 Hgb 15.4 (12.0-16.0) gm/dl Hct 44.2 (35-47) % MCV 88.8 (78-100) fl MCH 30.9 (26-32) pg MCHC 34.8 (32-36) g/dl RDW 12.3 (11.5-14.0) % Plt Count 519 H (150-450) K/mm3 MPV 9.9 (7.5-11.0) fl Gran % 74.9 H (36.0-66.0) % Eos # (Auto) 0.05 (0-0.5) Absolute Lymphs (auto) 2.84 (1.0-4.6) Absolute Monos (auto) 1.19 (0.0-1.3) Lymphocytes % 17.4 L (24.0-44.0) % Monocytes % 7.3 (0.0-12.0) % Eosinophils % 0.3 (0.00-5.0) % Basophils % 0.1 (0.0-0.4) % Absolute Granulocytes 12.26 H (1.4-6.9) Basophils # 0.02 (0-0.4) Sodium 135 L (137-145) mmol/L Potassium 2.4 L* (3.5-5.1) mmol/L Chloride 92 L (98-107) mmol/L Carbon Dioxide 32 H (22-30) mmol/L Anion Gap 13.2 (5-15) MEQ/L BUN 21 H (7-17) mg/dL Creatinine 1.21 H (0.52-1.04) mg/dL Estimated GFR 49.7 ML/MIN Glucose 124 H (74-106) mg/dL Calcium 10.0 (8.4-10.2) mg/dL Total Bilirubin 0.50 (0.2-1.3) mg/dL AST 42 H (14-36) U/L ALT 28 (0-35) U/L Alkaline Phosphatase 136 H (38-126) U/L Troponin I < 0.012 (0.000-0.034) ng/mL Serum Total Protein 9.4 H (6.3-8.2) g/dL Albumin 5.0 (3.5-5.0) g/dL Amylase 79 (30-110) U/L Lipase 157 (23-300) U/L Urine Color (YELLOW) Urine Appearance (CLEAR) Urine pH (5-6) Ur Specific [place] (1.005-1.025) Urine Protein (Negative) Urine Ketones (NEGATIVE) Urine Blood (0-5) Buster/ul Urine Nitrite (NEGATIVE) Urine Bilirubin (NEGATIVE) Urine Urobilinogen (0-1) mg/dL Ur Leukocyte Esterase (NEGATIVE) Urine WBC (Auto) (0-5) /HPF Urine RBC (Auto) (0-2) /HPF U Epithel Cells (Auto) (FEW) /HPF Urine Bacteria (Auto) (NEGATIVE) /HPF Urine Mucus (Auto) (NEGATIVE) /HPF Urine Culture Reflexed (NO) Urine Glucose (NEGATIVE) mg/dL Urine Opiates Level (NEGATIVE) Ur Methadone (NEGATIVE) Urine Barbiturates (NEGATIVE) Ur Phencyclidine (PCP) (NEGATIVE) Urine Amphetamine (NEGATIVE) U Benzodiazepine Level (NEGATIVE) Urine Cocaine (NEGATIVE) Urine Marijuana (THC) (NEGATIVE) 08/29/20 08/29/20 Range/Units 16:15 16:15 WBC (4.0-10.5) K/mm3 RBC (4.1-5.4) M/mm3 Hgb (12.0-16.0) gm/dl Hct (35-47) % MCV (78-100) fl MCH (26-32) pg MCHC (32-36) g/dl RDW (11.5-14.0) % Plt Count (150-450) K/mm3 MPV (7.5-11.0) fl Gran % (36.0-66.0) % Eos # (Auto) (0-0.5) Absolute Lymphs (auto) (1.0-4.6) Absolute Monos (auto) (0.0-1.3) Lymphocytes % (24.0-44.0) % Monocytes % (0.0-12.0) % Eosinophils % (0.00-5.0) % Basophils % (0.0-0.4) % Absolute Granulocytes (1.4-6.9) Basophils # (0-0.4) Sodium (137-145) mmol/L Potassium (3.5-5.1) mmol/L Chloride (98-107) mmol/L Carbon Dioxide (22-30) mmol/L Anion Gap (5-15) MEQ/L BUN (7-17) mg/dL Creatinine (0.52-1.04) mg/dL Estimated GFR ML/MIN Glucose (74-106) mg/dL Calcium (8.4-10.2) mg/dL Total Bilirubin (0.2-1.3) mg/dL AST (14-36) U/L ALT (0-35) U/L Alkaline Phosphatase (38-126) U/L Troponin I (0.000-0.034) ng/mL Serum Total Protein (6.3-8.2) g/dL Albumin (3.5-5.0) g/dL Amylase (30-110) U/L Lipase (23-300) U/L Urine Color STRAW (YELLOW) Urine Appearance CLEAR (CLEAR) Urine pH 7.0 (5-6) Ur Specific [place] 1.006 (1.005-1.025) Urine Protein 100 (Negative) Urine Ketones TRACE (NEGATIVE) Urine Blood SMALL (0-5) Buster/ul Urine Nitrite NEGATIVE (NEGATIVE) Urine Bilirubin NEGATIVE (NEGATIVE) Urine Urobilinogen NEGATIVE (0-1) mg/dL Ur Leukocyte Esterase NEGATIVE (NEGATIVE) Urine WBC (Auto) 0-2 (0-5) /HPF Urine RBC (Auto) NONE (0-2) /HPF U Epithel Cells (Auto) RARE (FEW) /HPF Urine Bacteria (Auto) NONE (NEGATIVE) /HPF Urine Mucus (Auto) SLIGHT (NEGATIVE) /HPF Urine Culture Reflexed YES (NO) Urine Glucose NEGATIVE (NEGATIVE) mg/dL Urine Opiates Level NEGATIVE (NEGATIVE) Ur Methadone NEGATIVE (NEGATIVE) Urine Barbiturates NEGATIVE (NEGATIVE) Ur Phencyclidine (PCP) NEGATIVE (NEGATIVE) Urine Amphetamine NEGATIVE (NEGATIVE) U Benzodiazepine Level NEGATIVE (NEGATIVE) Urine Cocaine NEGATIVE (NEGATIVE) Urine Marijuana (THC) POSITIVE (NEGATIVE) - Progress Progress: improved Progress Note: 08/29/20 19:14 1L NS bolus/4mg IV Zofran/30mg IV toradol w improvement 1L NS bolus w 20meq KCl Spoke w pt about THC usage which can cause hyperemesis 08/29/20 21:36 20mg IV Labetalol early in stay w decrease in BP Counseled pt/family regarding: lab results, diagnosis, need for follow-up, rad results - Departure Departure Disposition: Home Clinical Impression: Vomiting, Constipation, Marijuana use Condition: Stable Critical Care Time: No Referrals: MANFRED TANNER MD [Primary Care Provider] - Instructions: Constipation, Adult (DC), Nausea and Vomiting, Adult (DC) Additional Instructions: Fluids Zofran for nausea/vomiting Potassium three times a day for 1 week Follow up with your family MD in 1-2 days Return to ER for increasing pain or temperature greater than 100.5 Try a mild laxative like miralax at home Prescriptions: Ondansetron ODT 4 MG [Zofran Odt 4 mg] 4 mg PO Q6H PRN PRN #10 tab.rapdis PRN Reason: Nausea/Vomiting Potassium Chloride 10 Meq Tab* [Klor Con 10 MEQ] 40 meq PO TID #21 tab
[2020-08-29 16:46] LABS: ANION GAP 13.2 MEQ/L (5-15); BILIRUBIN,TOTAL 0.5 mg/dL (0.2-1.3); Creatinine 1 1.21 mg/dL (0.52-1.04); EST GLOMERULAR FILTRATION RATE 49.7 ML/MIN; Total Protein 9.4 g/dL (6.3-8.2)
[2020-08-29] MEDS ORDERED: TORAdol 30 mg Injection IV ONE (16:46)
[2020-08-29] MEDS ORDERED: TORAdol 30 mg Injection ONE (16:47)
[2020-08-29 16:52] LABS: Potassium 2.4 mmol/L (3.5-5.1)
[2020-08-29 16:59] LABS: Appearance CLEAR (CLEAR); Bilirubin NEGATIVE (NEGATIVE); Blood SMALL Ery/ul (0-5); Epithelial Cells RARE /HPF (FEW); Glucose NEGATIVE (NEGATIVE); Ketones TRACE (NEGATIVE); Leukocyte Esterase NEGATIVE (NEGATIVE); Mucus SLIGHT /HPF (NEGATIVE); Nitrite NEGATIVE (NEGATIVE); Protein,Urine Dip 100 (Negative); Specific Gravity 1.006 (1.005-1.025); Urobilinogen NEGATIVE mg/dL (0-1); WBC 0-2 /HPF (0-5)
[2020-08-29 17:08] LABS: Amphetamine,Urine NEGATIVE (NEGATIVE); Barbiturate,Urine NEGATIVE (NEGATIVE); Benzodiazepine,Urine NEGATIVE (NEGATIVE); Cocaine,Urine NEGATIVE (NEGATIVE); Methadone,Urine NEGATIVE (NEGATIVE); Opiate,Urine NEGATIVE (NEGATIVE); PCP,Urine NEGATIVE (NEGATIVE); THC,Urine POSITIVE (NEGATIVE)
[2020-08-29] MEDS ORDERED: Sodium Chloride 0.9% W/ 20 mEq KCl/LITER 1,000 ML IV SCH (17:30)
[2020-08-29] MEDS ORDERED: Sodium Chloride 0.9% W/ 20 mEq KCl/LITER 1,000 ML IV ONE (18:40)
[2020-08-29 20:20] VITALS: BP 155/90; PULSE 77
[2020-08-29 21:39] VITALS: O2SAT 100
--- NOTE | 2020-08-30 08:34 | XRAY ---
Indication: Nausea and vomiting. Two-dimensional gallbladder sonogram performed. Comparison: None Gallbladder normally distended with mild intraluminal sludge in the dependent portion. No gallstones, wall thickening, or pericholecystic fluid. Common bile duct measures 4.8 mm. Remaining visualized liver, pancreas, and right kidney sonographically unremarkable. Right kidney measures 10.1 cm in length. No ascites. Impression: Gallbladder sludge. Negative for cholelithiasis/cholecystitis. Comment: Preliminary report was given.
--- NOTE | 2020-08-30 08:38 | XRAY ---
Indication: Nausea and vomiting 3 weeks. Multiple contiguous axial images obtained through the abdomen and pelvis using 80 cc Isovue 370 contrast only. Comparison: August 12, 2020. Lung bases again demonstrates pulmonary emphysema, bronchiectasis, minimal dependent atelectasis, posterior peripheral cystic changes, tiny right posterior gutter calcified granuloma, and tiny indeterminate noncalcified nodules bilaterally. Heart is not enlarged. Noncontrasted stomach nonobstructed. Normal appendix. There is now mild diffuse scattered colonic fecal debris throughout including rectum. Gallbladder is moderately distended without gallstones or biliary distention. Stable left renal atrophy, bilateral renal cysts, and hysterectomy. Remaining liver, gallbladder, pancreas, spleen, adrenal glands, kidneys, ureters, and bladder are unremarkable. Stable moderate scattered irregular calcifications and left renal artery stent grafts. Impression: 1. Distended gallbladder without gallstones. 2. Mild diffuse fecal stasis without obstruction. 3. Stable left renal atrophy with renal artery stent grafts, renal cysts, bibasilar lung findings, and scattered arteriosclerotic disease. 4. Remaining CT abdomen/pelvis with contrast exam is negative.
== END 2020-08-29 21:30 | disposition home or self-care (01) ==
LOC: ED 15:41
DX: R11.2 Nausea with vomiting, unspecified (principal); K59.00 Constipation, unspecified; F12.90 Cannabis use, unspecified, uncomplicated
CPT/HCPCS: 36415; 74177; 76705; 80053; 80307; 81001; 82150; 83690; 84484; 85025; 87086; 93005; 96360; 96361; 96374; 96375; 99285; U0003; J1885; J2405